=== PATIENT | male | born 1980 | race Caucasian/White ===

== ENCOUNTER 2017-02-03 01:50 | Observation (INO) ==
[2017-02-03] MEDS ORDERED: 0.9 % Sodium Chloride 500 ML IVC ONE (02:21)
[2017-02-03] MEDS ORDERED: Aspirin 81 MG TAB.CHEW PO ONE (02:21)
[2017-02-03] MEDS ORDERED: Ketorolac 30 MG/ML VIAL IVP ONE (02:21)
[2017-02-03] MEDS ORDERED: *HR* LORazepam 2 MG/ML VIAL IVP ONE (02:22)
[2017-02-03] MEDS ORDERED: Lidocaine 4% CREAM (LMX) 5 GM TP ONE (02:49)
--- NOTE | 2017-02-03 02:49 | Emergency Department Note ---
Disposition Clinical Impression: Ejection fraction < 50%, Alopecia CHF (congestive heart failure) Qualifiers: Congestive heart failure type: systolic Congestive heart failure chronicity: acute on chronic Qualified Code(s): I50.23 - Acute on chronic systolic ( congestive) heart failure Dyspnea Qualifiers: Dyspnea type: unspecified Qualified Code(s): R06.00 - Dyspnea, unspecified Disposition: Admitted As Inpatient Condition: Good Time of Disposition: 05:06 General Adult HPI - General Chief complaint: ED General Medical Stated complaint: Multiple Complaints Time Seen by Provider: 02/03/17 01:56 Source: patient, EMS Limitations: no limitations Nursing Notes Reviewed: Yes Vital Signs Reviewed: Yes - History of Present Illness HPI Narrative: Patient presents emergency room with multiple complaints today. Main issue this time is left-sided chest pain and burning sensation in his head. Is also had intermittent fevers at home without a quantitated number. Patient denies any shortness of breath headache vision changes nausea vomiting or diarrhea. Main complaint is the burning sensation on his scalp that has been poorly controlled as well as intermittent chest discomfort after being argument with his son. Denies any trauma or injuries. No medication changes no other acute pathology or symptoms noted during this evaluation treatment course.. Onset (ago): day(s) Location: head, chest, left Radiation: non-radiation Pain Severity: severe Pain Scale: 10 Quality: burning Consistency: constant Improves with: nothing Worsens with: other (stress) Associated symptoms: Reports: denies other symptoms Treatments Prior to Arrival: none - Related Data Home Medications Medication Instructions Recorded Confirmed Gabapentin [Neurontin] 300 mg PO TID 07/17/16 12/25/16 Albuterol Sulfate [Ventolin Hfa] 2 puff IH Q4H PRN 08/09/16 12/25/16 Carvedilol 6.25 mg PO BID 08/09/16 12/25/16 Apixaban [Eliquis] 5 mg PO BID 12/21/16 12/25/16 Lisinopril 2.5 mg PO DAILY 12/25/16 12/25/16 Previous Rx's Medication Instructions Recorded Furosemide [Lasix] 80 mg PO DAILY #0 08/13/16 Potassium Chloride [K-Tab ER] 10 meq PO DAILY #20 tablet.er 08/13/16 Furosemide [Lasix] 40 mg PO DAILY #5 tab 01/09/17 HYDROcodone/Acet 5/325 mg [[place] 1 tab PO Q6H PRN #10 tab 01/09/17 5-325 mg] Lidocaine TOPICAL Soln [Xylocaine] 5 ml TP BID #2 bottle 01/09/17 Oxycodone HCl/Acetaminophen 1 each PO Q6HR PRN #6 tablet 01/14/17 [Percocet 5-325 mg Tablet] Allergies Allergy/AdvReac Type Severity Reaction Status Date / Time Penicillins Allergy Anaphylaxis Verified 02/03/17 01:53 All systems ED: reviewed and negative except as stated. Constitutional: Reports: fever. Denies: chills, weakness Cardiovascular: Reports: chest pain. Denies: palpitations, dyspnea on exertion , orthopnea Respiratory: Denies: dyspnea, wheezes, hemoptysis Gastrointestinal: Denies: nausea, vomiting, diarrhea Genitourinary: Denies: dysuria, frequency Musculoskeletal: Denies: back pain, neck pain Neurological: Denies: headache Past Medical History - Past Medical History Attestation: Yes The following information was validated with the patient. Source: patient Medical history: Reports: CHF, GERD, hypertension, pulmonary embolus, other Surgical history: Reports: non-contributory Psychiatric history: Reports: anxiety, depression - Social History Smoking Status: Current every day smoker Smokeless Tobacco Status: No Alcohol use: Reports: none Drug use: Reports: marijuana Physical Exam - General Limitations: no limitations General appearance: alert - Head Head exam: normocephalic (Patient has large excoriated area on the right posterior lateral last the scalp. Specifically demarcated lines are noted with skin lesion that appears to be irritated on presentation) - Neck Neck exam: Present: normal inspection, full ROM, trachea midline - Chest Chest inspection: Present: normal inspection, symmetric chest wall rise. Absent : tenderness - Respiratory Respiratory exam: Present: normal lung sounds bilaterally. Absent: respiratory distress, wheezes, accessory muscle use - Cardiovascular Cardiovascular exam: Present: regular rate, normal rhythm, normal heart sounds - Abdominal Exam Abdominal exam: Present: soft, Non-Tender, normal bowel sounds. Absent: tenderness, distention, guarding, rebound, rigidity, Wilson's sign, Rovsing's sign, tenderness at McBurney's Point - Extremities Exam Extremities exam: Present: normal inspection, full ROM, normal capillary refill - Back Exam Back exam: Present: normal inspection - Neurological Exam Neurological exam: Present: alert, oriented X3, CN II-XII intact, normal gait - Psychiatric Psychiatric exam: Present: normal affect, normal mood - Skin Skin exam: Present: warm, dry, intact, normal color Course Course Narrative: Patient seen and examined the time of arrival. See history of present illness. 36-year-old male presents emergency room today with 48 hours worth of left- sided chest pain that comes and goes. He also describes a burning and painful sensation on the right side of his scalp. He has an excoriated demarcated area on the scalp that appears to be chronic in nature. The patient continues to scratch and pick at the scalp while I am even in the room evaluating him. His vital signs are stable on review he is afebrile. Physical exam is otherwise benign. Patient does have mildly pressured speech and trying to describe all of his acute symptoms that he has here today. Lungs are clear heart is regular lungs are clear his reproducible tenderness to left anterior chest wall. Abdomen is soft nontender nondistended no guarding no rigidity. Patient moves all 4 extremities without any difficulty. He has good capillary refill and normal sensation. Patient has no signs of pitting edema in the extremities at this time. Vital signs reviewed again and then patient's medical history were discussed. Patient does have a history of what he describes as CHF without any cardiac related history including myocardial infarction or catheterization. Patient was also complaining of fever over the last several days to the point where it made him sweat profusely. Patient has multiple vague and what appear to be chronic complaints on presentation. This is a complaint of chest discomfort and pain patient will have an evaluation with EKG troponin labs chest x-ray and fluid evaluation along with aspirin. - Reevaluation(s) Reevaluation #1: Labs reviewed along with x-rays. Patient's BNP is almost double what it is ever been in the past. At that point I reviewed the patient's history including recent echocardiogram and catheterization. EF was noted to be 20% at that time. Patient is having what looks like conversational dyspnea even though his pulse ox is been stable. He does have a frothy white-like fluid discharge on coughing at this time. Clinically there is no signs of peripheral edema on examination but based on the symptoms history and presentation he does have what appears to be clinical CHF exacerbation. Single dose of IV Lasix given here in attempts to help with pulmonary congestion. Patient was reviewed and discussed with the hospitalist this time for admission for evaluation and definitive management. There are no other concerns or questions at this time. Patient's labs otherwise stable. Patient has been comfortable in the bed at this time with lidocaine cream applied to the scalp to help with his itching and irritation. No other acute issues noted during this evaluation treatment course. Patient will be observed here in the emergency room until the admission process is completed. A review of the patient's presentation symptoms was completed with the hospitalist Dr. ramey and he had no other acute concerns at this time. Patient family and I reviewed the intervention and discussion the comfortable with the course of care and appreciate her concern in his medical history and issues. Time: 05:05 Vital Signs Temperature 98.2 F 02/03/17 01:55 Pulse Rate 102 02/03/17 01:55 Respiratory Rate 20 02/03/17 01:55 Blood Pressure 124/78 02/03/17 01:55 O2 Sat by Pulse Oximetry 100 02/03/17 01:55 Temperature 98.2 F 02/03/17 01:55 Pulse Rate 92 02/03/17 04:31 Respiratory Rate 16 02/03/17 04:31 Blood Pressure 99/70 02/03/17 04:31 O2 Sat by Pulse Oximetry 100 02/03/17 04:31 Oxygen Delivery Oxygen Delivery Room Air Medical Decision Making - MDM Narrative Medical decision making narrative: CHF exacerbation, left heart failure - Medical Records Medical records reviewed: Yes I reviewed the patient's medical records. - Lab Data Lab results reviewed: Yes I reviewed the patient's lab results. Result diagrams: 02/03/17 02:43 02/03/17 02:43 Lab Results 02/03/17 02/03/17 02/03/17 Range/Units 02:43 02:43 02:43 WBC 14.3 H (4.3-11.1) K/mcL RBC 3.45 L (4.19-5.50) M/mcL Hgb 10.1 L (12.9-16.9) g/dL Hct 31.8 L (37.5-50.1) % MCV 92.2 (83.0-100.0) fL MCH 29.3 (28.0-33.3) pg MCHC 31.8 (31.6-35.5) g/dL RDW 14.3 (11.5-14.5) % Plt Count 302 (140-400) K/mcL MPV 9.7 (9.4-12.4) fL Immature Gran % 0.6 (0-4) % Seg Neutrophils % 69.6 % Lymphocytes % 18.1 % Monocytes % 9.6 % Eosinophils % 1.7 % Basophils % 0.4 % Neutrophils # 10.0 H (1.6-8.9) K/mcL Lymphocytes # 2.6 (0.6-4.6) K/mcL Monocytes # 1.4 H (0.0-1.3) K/mcL Eosinophils # 0.2 (0.0-0.6) K/mcL Basophils # 0.1 (0.0-0.2) K/mcL Immature Plt Fraction 2.5 (1.1-6.1) % PT 29.4 H (9.4-12.1) Seconds INR 2.6 APTT 38.1 H (26.0-36.0) Seconds Sodium (136-145) mEq/L Potassium (3.5-4.5) mEq/L Chloride (98-109) mEq/L Carbon Dioxide (19-29) mEq/L BUN (8-26) mg/dL Creatinine (0.72-1.25) mg/dL Est GFR ( Amer) (> 60) Est GFR (Non-Af Amer) (> 60) BUN/Creatinine Ratio (6-26) Glucose (70-99) mg/dL Calculated Osmolality (280-300) Calcium (8.6-10.8) mg/dL Troponin I (0-0.03) ng/mL B-Natriuretic Peptide 1624 H (0-100) pg/mL Urine Color (Yellow) Urine Clarity (Clear) Urine pH (5.0-8.0) pH Units Ur Specific [place] (1.010-1.025) Urine Protein (Neg-Trace) mg/dL Urine Glucose (UA) (Normal) mg/dL Urine Ketones (Negative) mg/dL Urine Blood (Negative) Urine Nitrite (Negative) Urine Bilirubin (Negative) Urine Urobilinogen (Normal) mg/dL Ur Leukocyte Esterase (Negative) Urine Microscopic RBC (0-3) per hpf Urine Microscopic WBC (0-3) per hpf Ur Squamous Epith Cells (None-Few) per lpf Calcium Oxalate Crystal Other Crystals Urine Bacteria (None-Few) per hpf Hyaline Casts (None-Few) per lpf Urine Mucus (Few) Ur Culture Indicated? (NO) Urine Opiates Screen (Njmrnx=754) ng/mL Ur Barbiturates Screen (Igutgn=673) ng/mL Ur Phencyclidine Scrn (Cutoff=25) ng/mL Ur Amphetamines Screen (Mstfld=6115) ng/mL U Benzodiazepines Scrn (Xeqdga=945) ng/mL Urine Cocaine Screen (Cutoff= 300) ng/mL U Marijuana (THC) Screen (Cutoff = 50) ng/mL 02/03/17 02/03/17 02/03/17 Range/Units 02:43 02:43 03:45 WBC (4.3-11.1) K/mcL RBC (4.19-5.50) M/mcL Hgb (12.9-16.9) g/dL Hct (37.5-50.1) % MCV (83.0-100.0) fL MCH (28.0-33.3) pg MCHC (31.6-35.5) g/dL RDW (11.5-14.5) % Plt Count (140-400) K/mcL MPV (9.4-12.4) fL Immature Gran % (0-4) % Seg Neutrophils % % Lymphocytes % % Monocytes % % Eosinophils % % Basophils % % Neutrophils # (1.6-8.9) K/mcL Lymphocytes # (0.6-4.6) K/mcL Monocytes # (0.0-1.3) K/mcL Eosinophils # (0.0-0.6) K/mcL Basophils # (0.0-0.2) K/mcL Immature Plt Fraction (1.1-6.1) % PT (9.4-12.1) Seconds INR APTT (26.0-36.0) Seconds Sodium 133 L (136-145) mEq/L Potassium 3.7 (3.5-4.5) mEq/L Chloride 102 (98-109) mEq/L Carbon Dioxide 21 (19-29) mEq/L BUN 16 (8-26) mg/dL Creatinine 0.77 (0.72-1.25) mg/dL Est GFR ( Amer) > 60 (> 60) Est GFR (Non-Af Amer) > 60 (> 60) BUN/Creatinine Ratio 21 (6-26) Glucose 106 H (70-99) mg/dL Calculated Osmolality 278 L (280-300) Calcium 8.1 L (8.6-10.8) mg/dL Troponin I 0.01 (0-0.03) ng/mL B-Natriuretic Peptide (0-100) pg/mL Urine Color Yellow (Yellow) Urine Clarity Cloudy A (Clear) Urine pH 6.0 (5.0-8.0) pH Units Ur Specific [place] 1.018 (1.010-1.025) Urine Protein Negative (Neg-Trace) mg/dL Urine Glucose (UA) Normal (Normal) mg/dL Urine Ketones Negative (Negative) mg/dL Urine Blood Trace H (Negative) Urine Nitrite Negative (Negative) Urine Bilirubin Negative (Negative) Urine Urobilinogen Normal (Normal) mg/dL Ur Leukocyte Esterase Trace H (Negative) Urine Microscopic RBC 3-5 H (0-3) per hpf Urine Microscopic WBC 0-3 (0-3) per hpf Ur Squamous Epith Cells Moderate H (None-Few) per lpf Calcium Oxalate Crystal Present Other Crystals Present Urine Bacteria Few (None-Few) per hpf Hyaline Casts Few (None-Few) per lpf Urine Mucus Few (Few) Ur Culture Indicated? YES A (NO) Urine Opiates Screen (Eoevxq=883) ng/mL Ur Barbiturates Screen (Qsrvsn=175) ng/mL Ur Phencyclidine Scrn (Cutoff=25) ng/mL Ur Amphetamines Screen (Bzlxtf=3977) ng/mL U Benzodiazepines Scrn (Bxepwt=823) ng/mL Urine Cocaine Screen (Cutoff= 300) ng/mL U Marijuana (THC) Screen (Cutoff = 50) ng/mL 02/03/17 Range/Units 03:45 WBC (4.3-11.1) K/mcL RBC (4.19-5.50) M/mcL Hgb (12.9-16.9) g/dL Hct (37.5-50.1) % MCV (83.0-100.0) fL MCH (28.0-33.3) pg MCHC (31.6-35.5) g/dL RDW (11.5-14.5) % Plt Count (140-400) K/mcL MPV (9.4-12.4) fL Immature Gran % (0-4) % Seg Neutrophils % % Lymphocytes % % Monocytes % % Eosinophils % % Basophils % % Neutrophils # (1.6-8.9) K/mcL Lymphocytes # (0.6-4.6) K/mcL Monocytes # (0.0-1.3) K/mcL Eosinophils # (0.0-0.6) K/mcL Basophils # (0.0-0.2) K/mcL Immature Plt Fraction (1.1-6.1) % PT (9.4-12.1) Seconds INR APTT (26.0-36.0) Seconds Sodium (136-145) mEq/L Potassium (3.5-4.5) mEq/L Chloride (98-109) mEq/L Carbon Dioxide (19-29) mEq/L BUN (8-26) mg/dL Creatinine (0.72-1.25) mg/dL Est GFR ( Amer) (> 60) Est GFR (Non-Af Amer) (> 60) BUN/Creatinine Ratio (6-26) Glucose (70-99) mg/dL Calculated Osmolality (280-300) Calcium (8.6-10.8) mg/dL Troponin I (0-0.03) ng/mL B-Natriuretic Peptide (0-100) pg/mL Urine Color (Yellow) Urine Clarity (Clear) Urine pH (5.0-8.0) pH Units Ur Specific [place] (1.010-1.025) Urine Protein (Neg-Trace) mg/dL Urine Glucose (UA) (Normal) mg/dL Urine Ketones (Negative) mg/dL Urine Blood (Negative) Urine Nitrite (Negative) Urine Bilirubin (Negative) Urine Urobilinogen (Normal) mg/dL Ur Leukocyte Esterase (Negative) Urine Microscopic RBC (0-3) per hpf Urine Microscopic WBC (0-3) per hpf Ur Squamous Epith Cells (None-Few) per lpf Calcium Oxalate Crystal Other Crystals Urine Bacteria (None-Few) per hpf Hyaline Casts (None-Few) per lpf Urine Mucus (Few) Ur Culture Indicated? (NO) Urine Opiates Screen Negative (Hpvqmm=760) ng/mL Ur Barbiturates Screen Negative (Zvykde=541) ng/mL Ur Phencyclidine Scrn Negative (Cutoff=25) ng/mL Ur Amphetamines Screen Negative (Xgjypz=5586) ng/mL U Benzodiazepines Scrn Negative (Xisuap=587) ng/mL Urine Cocaine Screen Negative (Cutoff= 300) ng/mL U Marijuana (THC) Screen Positive H (Cutoff = 50) ng/mL - Radiology Data Radiology results reviewed: Yes I reviewed the patient's radiology results. Chest x-ray is stable no acute signs of infiltrate or pneumonia - EKG Data EKG #1 EKG attestation: Yes I reviewed and interpreted this EKG. EKG shows normal: sinus rhythm, axis, intervals, QRS complexes, ST-T waves Rate: tachycardia Rhythm: NSR [place]/QRS: normal When compared to previous EKG there are: no significant changes Interpretation: no acute changes, unchanged when compared to prior tracing (date ) (01/13/17) Attestation Statement - Attestation Attestation: I, Mumtaz Haile MD, personally evaluated this patient and discussed their management with the resident physician. I reviewed the resident's note and agree with the documented findings, medical decision making, and plan of care. 36-year-old male presents to the emergency department with a complaint of intermittent left-sided chest pains over the past 4 days which seem to be getting gradually worse. He also complains of increasing shortness of breath. Patient has a history of CHF and his last ejection fraction was 20%. He recently had a cardiac catheter and states that they did not find any blockage or place any stents. He denies history of PR. He states these symptoms started after "situation" with his son. He states he has had increased cough with frothy white sputum. No blood-tinged sputum. No fever. He states this feels like when his CHF flares up. On examination patient is a well-developed well-nourished anxious male in no acute distress. He is alert and oriented 3. There is no cyanosis or diaphoresis. There is a large area of alopecia with excoriation and weeping of the scalp to the right posterior parietal, temporal, and occipital scalp. Chest is nontender to palpation. Breath sounds are decreased but equal bilaterally with a few bibasilar rales. No wheezes noted. Heart regular rate and rhythm. Abdomen is soft and nontender with normal bowel sounds. Trace pedal edema. Labs reviewed. BNP 1624. No acute changes on EKG. Chest x-ray shows stable mild cardiomegaly with no overt pulmonary edema. The hospitalist, Dr. Ramey, was consulted and accepted admission of the patient.
[2017-02-03 02:54] LABS: Basophils # 0.1 K/mcL (0.0-0.2); Basophils % 0.4 %; Eosinophils # 0.2 K/mcL (0.0-0.6); Eosinophils % 1.7 %; Hematocrit 31.8 % (37.5-50.1); Hemoglobin 10.1 g/dL (12.9-16.9); Immature Granulocytes % 0.6 % (0-4); Immature Platelets 2.5 % (1.1-6.1); Lymphocytes # 2.6 K/mcL (0.6-4.6); Lymphocytes % 18.1 %; Mean Corpuscular HGB Conc 31.8 g/dL (31.6-35.5); Mean Corpuscular Hemoglobin 29.3 pg (28.0-33.3); Mean Corpuscular Volume 92.2 fL (83.0-100.0); Mean Platelet Volume 9.7 fL (9.4-12.4); Monocytes # 1.4 K/mcL (0.0-1.3); Monocytes % 9.6 %; Platelet Count 302 K/mcL (140-400); Red Blood Count 3.45 M/mcL (4.19-5.50); Red Cell Distribution Width 14.3 % (11.5-14.5); Segmented Neutrophils % 69.6 %
[2017-02-03 03:03] LABS: INR 2.6; Prothrombin Time 29.4 Seconds (9.4-12.1)
[2017-02-03 03:06] LABS: Activated Partial Thrombo Time 38.1 Seconds (26.0-36.0); BUN/Creatinine Ratio 21 (6-26); Blood Urea Nitrogen 16 mg/dL (8-26); Calcium 8.1 mg/dL (8.6-10.8); Carbon Dioxide 21 mEq/L (19-29); Chloride 102 mEq/L (98-109); Glucose 106 mg/dL (70-99); Osmolality,Calculated 278 (280-300); Potassium 3.7 mEq/L (3.5-4.5); Sodium 133 mEq/L (136-145); eGFR For African Americans > 60 (> 60); eGFR For Non-African Americans > 60 (> 60)
[2017-02-03 03:58] LABS: Bilirubin,Urine Negative (Negative); Blood,Urine Trace (Negative); Clarity,Urine Cloudy (Clear); Color,Urine Yellow (Yellow); Glucose,Urine (UA) Normal (Normal); Ketones,Urine Negative (Negative); Leukocyte Esterase,Urine Trace (Negative); Nitrite,Urine Negative (Negative); Protein,Urine Negative (Neg-Trace); Specific Gravity,Urine 1.018 (1.010-1.025); Urobilinogen,Urine Normal (Normal)
[2017-02-03 04:00] LABS: Squamous Epithelial Cell,Urine Moderate per lpf (None-Few); WBC,Urine 0-3 per hpf (0-3)
[2017-02-03 04:02] LABS: Amphetamine Screen,Urine Negative ng/mL (Cutoff=1000); Barbiturate Screen,Urine Negative ng/mL (Cutoff=200); Benzodiazepines Screen,Urine Negative ng/mL (Cutoff=200); Cannabinoid Screen,Urine Positive ng/mL (Cutoff = 50); Cocaine Screen,Urine Negative ng/mL (Cutoff= 300); Opiate Screen,Urine Negative ng/mL (Cutoff=300); Phencyclidine Screen,Urine Negative ng/mL (Cutoff=25)
[2017-02-03 04:11] LABS: Bacteria,Urine Few per hpf (None-Few); Calcium Oxalate Crystals,Urine Present; Hyaline Casts,Urine Few per lpf (None-Few); Mucus,Urine Few (Few); Other Crystals,Urine Present
[2017-02-03] MEDS ORDERED: Furosemide 40 MG/4 ML VIAL IVP ONE (04:43)
[2017-02-03] MEDS ORDERED: *HR* HYDROcodone/Acet 5/325 mg TABLET PO PRN (05:24)
[2017-02-03] MEDS ORDERED: Ipratropium/Albuterol Neb 3 ML IH PRN (05:25)
[2017-02-03] MEDS ORDERED: Naloxone 0.4 MG/ML INJ IVP PRN (05:26)
[2017-02-03] MEDS ORDERED: Acetaminophen 325 MG TABLET PO PRN (05:26)
[2017-02-03] MEDS ORDERED: *HR* Morphine 2 MG/ML SYRINGE IVP PRN (05:26)
[2017-02-03] MEDS ORDERED: Ondansetron 4 MG/2 ML VIAL IVP PRN (05:26)
--- NOTE | 2017-02-03 05:32 | Internal Med History&Physical ---
Date of Encounter: 02/03/17 Time of Encounter: 05:30 Assessment and Plan (1) Acute combined systolic and diastolic congestive heart failure Current visit: No Status: Acute Acute on chronic combined systolic and diastolic CHF exacerbation with an ejection fraction of 20% Strict I's and O's, daily weights, Lasix IV 40 mg twice a day Omeprazole for GI prophylaxis and Eliquis for DVT prophylaxis. The patient will be admitted as inpatient, expected stay more than 2 midnights. Full code. Time spent on this admission 40 minutes. High risk of respiratory failure (2) Sepsis Current visit: Yes Status: Acute Secondary to acute bacterial bronchitis Start Rocephin Lactic acid, blood cultures Qualifiers: Sepsis type: sepsis due to unspecified organism Qualified Code(s): A41.9 - Sepsis, unspecified organism (3) Bronchitis Current visit: Yes Status: Acute (4) Pulmonary embolism and infarction Current visit: No Status: Acute Continue Eliquis (5) Tobacco abuse Current visit: No Status: Chronic Smoking cessation counseling given for 5 minutes. Order nicotine patch (6) Alopecia Current visit: Yes Status: Chronic Seen as an outpatient by case work aide, unclear source/etiology Internal Medicine - H&P: HPI Chief complaint: Shortness of breath Admitted From: Emergency Dept History of present illness: Mr. Welch is a 36 year old male with a past medical history of systolic and diastolic CHF and ejection fraction of 20%, pulmonary infarction, pulmonary emboli, left ventricular thrombus currently on Eliquis, tobacco use, alopecia. Comes complaining of shortness of breath, left sided chest pain non-quantified fevers for 3 days bringing up productive cough, yellowish at times. Chest x- ray shows cardiomegaly and minimal congestion but his BNP is elevated at 1624. He has been bringing up also some frothy sputum. Heart rate was 102, blood pressure 99/74 blood cell count 14.3 INR is 2.6 sodium 133. Denies any sick contacts. Chest pain comes on and off. Has some leg swelling bilaterally Past Med Surg Social Fam HX - Past Medical History Medical history: CHF (Systolic and diastolic with an ejection fraction of 20%), GERD, hypertension, pulmonary embolus, other (Left ventricular thrombus, pulmonary infarction on Eliquis, tobacco use, chronic cholecystitis, neuropathy , anxiety, depression, shingles, alopecia, GERD, scalp wound) Psychiatric history: anxiety, depression - Past Surgical History Surgical History: no surgical history, non-contributory - Social History Smoking Status: Current every day smoker Packs per day: 1 pack per day Smokeless Tobacco Status: No Alcohol use: none Drug use: marijuana - Family History Mother Family Member Ethnicity: Non- Living Status: Still Living Hx Family Cardiac Disorders: No Hx Family Respiratory Disorders: No Hx Family Cancer: Yes Hx Family GI Disorders: No Hx Family Endocrine Disorder: No Hx Family Neuromuscular Disorders: No Hx Family Neurologic Disorders: No Hx Family HEENT Disorders: No - Additional Family History Additional family history: Mother with breast and uterine cancer Internal Medicine - H&P: Meds Gabapentin [Neurontin] 300 mg PO TID 07/17/16 [History] Albuterol Sulfate [Ventolin Hfa] 2 puff IH Q4H PRN 08/09/16 [History] Carvedilol 6.25 mg PO BID 08/09/16 [History] Furosemide [Lasix] 80 mg PO DAILY #0 08/13/16 [Rx] Potassium Chloride [K-Tab ER] 10 meq PO DAILY #20 tablet.er 08/13/16 [Rx] Apixaban [Eliquis] 5 mg PO BID 12/21/16 [History] Lisinopril 2.5 mg PO DAILY 12/25/16 [History] Furosemide [Lasix] 40 mg PO DAILY #5 tab 01/09/17 [Rx] HYDROcodone/Acet 5/325 mg [[place] 5-325 mg] 1 tab PO Q6H PRN #10 tab 01/09/17 [Rx ] Lidocaine TOPICAL Soln [Xylocaine] 5 ml TP BID #2 bottle 01/09/17 [Rx] Oxycodone HCl/Acetaminophen [Percocet 5-325 mg Tablet] 1 each PO Q6HR PRN #6 tablet 01/14/17 [Rx] Allergies Penicillins Allergy (Verified 02/03/17 01:53) Anaphylaxis All Systems PM: A 10-system review of systems was performed and is negative for pertinent findings except as documented above in the HPI. Review of systems: Complains of constant itchiness on his scalp on the right side, diagnosed with alopecia of unknown source, picks on it constantly and is currently bleeding in certain small areas. Other systems out of the 10 reviewed are negative - Constitutional Vitals: Temp Pulse Resp BP Pulse Ox 98.2 F 92 16 99/70 100 02/03/17 01:55 02/03/17 04:31 02/03/17 04:31 02/03/17 04:31 02/03/17 04:31 General appearance: Present: A&O X 3 - Head Head exam: Present: atraumatic, normocephalic - Eye Eye exam: Present: PERRL, conjuntiva pink, sclera anicteric Pupils: Present: PERRL - Neck Neck exam general surgery: Present: supple, trachea midline. Absent: lymphadenopathy - Respiratory Respiratory exam: Present: CTAB, rales (Diffuse crackles). Absent: accessory muscle use, rhonchi, wheezes - Cardiovascular Cardiovascular exam: Present: RRR, +S1, +S2. Absent: diastolic murmur, gallop, rubs, systolic murmur - GI/Abdominal GI/Abdominal exam: Present: normal bowel sounds, soft, no peritoneal signs. Absent: distended, tenderness - Extremities Exam Extremities exam: Present: pedal edema (+1 pitting edema in both lower extremities), warm, radial pulses palpable and symetrical. Absent: calf tenderness, cyanotic - Neurological Exam Neurological exam: Present: CN II-XII intact, oriented X3, no focal deficits. Absent: pronater drift, facial droop, speech deficit - Skin Skin exam: Present: dry. Absent: intact (Large area of alopecia on the right temporal scalp, with multiple small excoriations) Internal Med - H&P Results - Labs CBC & Chem 7: 02/03/17 02:43 02/03/17 02:43
[2017-02-03] MEDS ORDERED: *HR* OxyCODONE/APAP 5/325 TABLET PO PRN (08:20)
[2017-02-03] MEDS: APIXABAN 5 MG TABLET PO SCH ×2 (08:22→22:33)
[2017-02-03] MEDS: Nicotine 21 MG PATCH.TD24 TD SCH (08:24)
[2017-02-03] MEDS: Gabapentin 300 MG CAPSULE PO SCH ×3 (08:24→22:33)
[2017-02-03] MEDS ORDERED: Lidocaine TOPICAL Soln 50 ML BOTTLE TP SCH (09:00)
[2017-02-03] MEDS ORDERED: Furosemide 40 MG/4 ML VIAL IVP SCH (09:00)
[2017-02-03] MEDS: Furosemide 40 MG/4 ML VIAL IVP SCH ×2 (09:32→18:16)
--- NOTE | 2017-02-03 09:35 | Event Note ---
Date of Encounter: 02/03/17 Time of Encounter: 08:20 Patient complaining of scalp pain in the right posterior scalp where he has an open wound that is chronic and with severe pain and itching. He is scheduled to follow up with [facility] for further evaluation as no clear cause has been identified. He requests a topical antifungal cream to see if it would ameliorate his symptoms. He does use lidocaine topically for pain also. Will order topical clotrimazole for him. Acute combined congestive heart failure: Continue IV Lasix. Monitor input and output. Daily weights. Sepsis possibly from upper airway respiratory tract infection/bronchitis: Continue Rocephin. Follow culture results. Pulmonary embolism and left ventricular mural thrombus: Continue anticoagulation with Eliquis. Alopecia: With pain and pruritus. Topical steroid and clotrimazole cream. Follow up outpatient with [facility] as scheduled.
[2017-02-03] MEDS: Clotrimazole/Betameth Dip CRM 45 APPL/45 GM TUBE TP SCH ×2 (09:40→22:34)
[2017-02-03] MEDS: *HR* OxyCODONE/APAP 5/325 TABLET PO PRN ×2 (09:40→14:59)
--- NOTE | 2017-02-03 10:18 | Electrocardiograph Report ---
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
[2017-02-03] MEDS: *HR* OxyCODONE/APAP 10/325 TABLET PO PRN (13:01)
[2017-02-03] MEDS: Lidocaine TOPICAL Soln 50 ML BOTTLE TP SCH ×2 (14:58→22:34)
[2017-02-04] MEDS: *HR* OxyCODONE/APAP 5/325 TABLET PO PRN ×5 (00:34→22:34)
[2017-02-04 07:18] LABS: Basophils # 0.1 K/mcL (0.0-0.2); Basophils % 0.5 %; Eosinophils # 0.3 K/mcL (0.0-0.6); Eosinophils % 2.2 %; Hematocrit 33.1 % (37.5-50.1); Hemoglobin 10.7 g/dL (12.9-16.9); Lymphocytes # 1.9 K/mcL (0.6-4.6); Lymphocytes % 16.3 %; Mean Corpuscular HGB Conc 32.3 g/dL (31.6-35.5); Mean Corpuscular Hemoglobin 29.8 pg (28.0-33.3); Mean Corpuscular Volume 92.2 fL (83.0-100.0); Mean Platelet Volume 10.5 fL (9.4-12.4); Monocytes % 8.4 %; Neutrophils # 8.5 K/mcL (1.6-8.9); Platelet Count 332 K/mcL (140-400); Red Blood Count 3.59 M/mcL (4.19-5.50); Red Cell Distribution Width 14.4 % (11.5-14.5); Segmented Neutrophils % 71.6 %
[2017-02-04 07:26] LABS: BUN/Creatinine Ratio 24 (6-26); Blood Urea Nitrogen 16 mg/dL (8-26); Carbon Dioxide 24 mEq/L (19-29); Chloride 102 mEq/L (98-109); Chol/HDL Ratio 7.5 (0-4.9); Cholesterol 120 mg/dL (< 200); Glucose 107 mg/dL (70-99); HDL Cholesterol 16 mg/dL (40-59); LDL Cholesterol,Calculated 88 mg/dL (0-99); Osmolality,Calculated 280 (280-300); Potassium 3.8 mEq/L (3.5-4.5); Sodium 134 mEq/L (136-145); Triglycerides 80 mg/dL (< 150); eGFR For African Americans > 60 (> 60); eGFR For Non-African Americans > 60 (> 60)
[2017-02-04] MEDS: Furosemide 40 MG/4 ML VIAL IVP SCH ×2 (08:55→17:29)
[2017-02-04] MEDS: APIXABAN 5 MG TABLET PO SCH ×2 (08:55→20:47)
[2017-02-04] MEDS: Gabapentin 300 MG CAPSULE PO SCH ×3 (08:55→20:48)
[2017-02-04] MEDS: Clotrimazole/Betameth Dip CRM 45 APPL/45 GM TUBE TP SCH ×2 (08:58→20:48)
[2017-02-04] MEDS: Lidocaine TOPICAL Soln 50 ML BOTTLE TP SCH ×3 (08:58→20:49)
[2017-02-04] MEDS: Nicotine 21 MG PATCH.TD24 TD SCH (08:58)
[2017-02-04] MEDS: *HR* OxyCODONE/APAP 10/325 TABLET PO PRN (12:22)
--- NOTE | 2017-02-04 15:23 | Cardiology Consult Note ---
Date of Encounter: 02/04/17 Time of Encounter: 14:30 Assessment and Plan (1) Acute on chronic systolic CHF (congestive heart failure), NYHA class 2 Current Visit: Yes Status: Acute Per cardiology: -Known chronic systolic congestive heart failure. -Admitted with increased shortness of breath and productive cough with frothy sputum. -On lasix 40mg IV BID per primary service. -On beta rosalina and marysol inhibitor. -Creatinine normal. -Patient's weight 01/22/17 203 pounds, weight today 208.8 pounds. -Of note, patient's weight has decreased by about 2 pounds since admission. -Mild pedal edema noted. Lungs clear to auscultation. -Agree with strict I/Os, daily weights, and fluid restriction. -Per review of records, patient is net positive 400ml. -Patient states shortness of breath and edema is improved today. Patient reports productive cough has now resolved. -Recommend continuing current regimen since patient has clinically imrpoved. -Of note, patient states that he is leaving the hospital today. Patient states he will leave AMA if necessary. Educated patient on importance of staying and continuing IV diuresis. Patient states understanding. (2) Non-ischemic cardiomyopathy Current Visit: Yes Status: Chronic Per cardiology: -Known non-ischemic cardiomyopathy. -LHC 12/25/16 with normal coronary arteries. -Most recent echocardiogram 10/23/16 with LVEF 20%, severely dilated left ventricle, global LV hypokinesis, mild RV hypokinesis, moderately dilated left atrium, all wall segments hypokinetic. -Of note, per patient, patient has cardiac MRI scheduled 02/18/17. Patient follows with . -On maryslo inhibtior and beta rosalina. -Unable to further titrate current medication regimen due to BPs 90-100s systolic. -Recommend continuing current regimen. (3) Atypical chest pain Current Visit: Yes Status: Acute Per cardiology: -Atypical chest pain in the setting of stressful situation with son. -Chest pain resolved spontaneoulsy. -Denies current chest pain. -LHC as above 12/24/16 normal. -ECG with no ischemic changes, -Troponin negative. -Echo as above. -Will continue to monitor. (4) Tobacco abuse Current Visit: No Status: Chronic Per cardioogy: -Known tobacco abuse. -CUrrently smokes 0.5 ppd for 25 years. - I spent 3-5 minutes reviewing smoking cessation education with patient. Discussion w patient/family: The assessment and plan as outlined above was discussed with the patient and/or family members who expressed understanding and agreement. All questions were answered. Thank you for involving us in the care of your patient. Please call with any questions. Patient was discussed and reviewed with Dr.John Domniguez. History of Present Illness Consult date: 02/04/17 Requesting physician: Autumn Martinez Consult reason: acute on chronic CHF Chief complaint: shortness of breath History of present illness: Mr. Welch is a 36 year old male with a relevant past medical history of non- ischemic cardiomyopathy, anxiety, depression, shingles, and smoking. Patient presented to ER with complaints of increased shortness of breath, coughing up frothy sputum, and left sided chest pain that was accompanied by stressful situation with son. Patient states that this has happened prior when he was admitted with CHF exacerbation. Patient states he has been compliant with medication regimen at home. Patient reports compliance with fluid and sodium restriction. Patient denies productive cough today. Patient denies current chest pain. Patient reports shortness of breath is much improved today. Patient reports is scheduled for cardiac MRI 02/18/17. Of note, patient states that he is leaving the hospital today, even if he has to leave AMA. Past Med Surg Social Fam HX - Past Medical History Attestation: Yes The following information was validated with the patient. Source: patient, old records reviewed, obtained from family Medical history: CHF, hypertension, pulmonary embolus Psychiatric history: anxiety, depression - Past Surgical History Surgical History: no surgical history, non-contributory - Social History Smoking Status: Current every day smoker Packs per day: 1 pack per day Smokeless Tobacco Status: No Alcohol use: none Drug use: marijuana - Family History Mother Family Member Ethnicity: Non- Living Status: Still Living Hx Family Cardiac Disorders: No Hx Family Respiratory Disorders: No Hx Family Cancer: Yes Hx Family GI Disorders: No Hx Family Endocrine Disorder: No Hx Family Neuromuscular Disorders: No Hx Family Neurologic Disorders: No Hx Family HEENT Disorders: No Medications and Allergies Gabapentin [Neurontin] 300 mg PO TID 07/17/16 [History] Albuterol Sulfate [Ventolin Hfa] 2 puff IH Q4H PRN 08/09/16 [History] Carvedilol 6.25 mg PO BID 08/09/16 [History] Furosemide [Lasix] 80 mg PO DAILY #0 08/13/16 [Rx] Potassium Chloride [K-Tab ER] 10 meq PO DAILY #20 tablet.er 08/13/16 [Rx] Apixaban [Eliquis] 5 mg PO BID 12/21/16 [History] Lisinopril 2.5 mg PO DAILY 12/25/16 [History] Lidocaine TOPICAL Soln [Xylocaine] 5 ml TP BID #2 bottle 01/09/17 [Rx] Allergies Penicillins Allergy (Verified 02/03/17 08:16) Anaphylaxis SWELLING All Systems Review: A 10-system review of systems was performed and is negative for pertinent findings except as documented above in the HPI. - Cardiovascular Cardiovascular: as per HPI, chest pain at rest, dyspnea on exertion Physical Examination Vital Signs, Last 4 Hours Temp Pulse Resp BP Pulse Ox 02/04/17 12:33 104/80 02/04/17 12:32 106/71 02/04/17 11:52 97.9 F 98 18 90/56 97 General: Conversant, No Apparent Distress HEENT: Atraumatic, Normocephaly, Mucus Membranes Moist Neck: No JVD, Normal carotid pulses Cardiac: Reg Rate and Rhythm, Normal S1 and S2, No Murmur Lungs: Normal Breath Sounds, No Wheeze, Rales, Rhonchi Neuro: Alert and responsive, No focal deficits noted Abdomen: Soft, Non-Tender Skin: Other (RIght side of scalp excoriated and red and no hair noted to right side of scalp. ) Musculoskeletal: No Chest Wall Tenderness Extremities: No Clubbing, No Cyanosis, Normal Pulses, Other (Mild bilateral pedal edema, non-pitting. ) Results 02/04/17 07:00 02/04/17 07:00 Lab Results Active Medications Acetaminophen (Tylenol) 650 mg PO Q6HR PRN PRN Reason: Mild Pain (1-3) Stop: 08/05/17 05:27 Albuterol/Ipratropium (Duoneb) 3 ml IH [id number] PRN; Protocol PRN Reason: Shortness Of Breath/Wheezing Stop: 08/05/17 05:26 Apixaban (Eliquis) 5 mg PO BID [facility] Stop: 08/05/17 09:01 Last Admin: 02/04/17 08:55 Dose: 5 mg Betamethasone/Clotrimazole (Lotrisone Crm) 1 appl TP BID [facility] Stop: 08/05/17 09:01 Last Admin: 02/04/17 08:58 Dose: 1 appl Carvedilol (Coreg) 6.25 mg PO BIDWM [facility] Stop: 08/05/17 08:44 Last Admin: 02/04/17 08:55 Dose: 6.25 mg Furosemide (Lasix) 40 mg IVP BIDDIURETIC [facility] Stop: 08/05/17 08:44 Last Admin: 02/04/17 08:55 Dose: 40 mg Gabapentin (Neurontin) 300 mg PO TID [facility] Stop: 08/05/17 09:01 Last Admin: 02/04/17 08:55 Dose: 300 mg Ceftriaxone Sodium 1,000 mg/ (Dextrose) 100 mls @ 200 mls/hr IVPB DAILY [facility] Stop: 08/05/17 09:01 Last Admin: 02/04/17 08:57 Dose: 200 mls/hr Lidocaine HCl (Xylocaine) 10 ml TP TID [facility] Stop: 08/05/17 15:01 Last Admin: 02/04/17 08:58 Dose: 10 ml Lisinopril (Zestril) 2.5 mg PO DAILY [facility] Stop: 08/05/17 09:01 Last Admin: 02/04/17 08:54 Dose: 2.5 mg Naloxone HCl (Narcan) 0.4 mg IVP Q2MIN PRN PRN Reason: Opioid Reversal Stop: 08/05/17 05:27 Nicotine (Nicoderm) 21 mg TD DAILY [facility] PRN Reason: Protocol Stop: 08/05/17 09:01 Last Admin: 02/04/17 08:58 Dose: Not Given Omeprazole (Prilosec) 20 mg PO DAILY@0730 [facility] PRN Reason: Protocol Stop: 08/05/17 08:45 Last Admin: 02/04/17 08:55 Dose: 20 mg Ondansetron HCl (Zofran) 4 mg IVP Q8HR PRN PRN Reason: Nausea And Vomiting Stop: 08/05/17 05:27 Oxycodone/Acetaminophen (Percocet 5/325) 1 each PO Q4HR PRN PRN Reason: Moderate Pain (4-6) Stop: 08/05/17 08:21 Last Admin: 02/04/17 08:54 Dose: 1 each Oxycodone/Acetaminophen (Percocet 10/325) 1 each PO Q6HR PRN PRN Reason: Severe Pain (7-10) Stop: 08/05/17 11:19 Last Admin: 02/04/17 12:22 Dose: 1 each Potassium Chloride (Potassium Chloride) 10 meq PO DAILY [facility] Stop: 08/05/17 09:01 Last Admin: 02/04/17 08:54 Dose: 10 meq Laboratory Tests 02/03/17 02/03/17 02/03/17 02:43 02:43 02:43 WBC 14.3 H Hgb Creatinine Troponin I 0.01 B-Natriuretic Peptide 1624 H Triglycerides Cholesterol LDL Cholesterol, Calc HDL Cholesterol 02/04/17 02/04/17 07:00 07:00 WBC 11.9 H Hgb 10.7 L Creatinine 0.66 L Troponin I B-Natriuretic Peptide Triglycerides 80 Cholesterol 120 LDL Cholesterol, Calc 88 HDL Cholesterol 16 L - Imaging and Cardiology Chest Xray: report reviewed Echo: report reviewed Cardiac cath: report reviewed - EKG Interpretation EKG results cardiology: personally reviewed (ECG with sinus tachycardia, HR 103 , unchanged from ECG 01/13/17), other (Telemetry reviewed with average HR 102, sinus tachycardia. PVCs, 4 couplet PVCs, and PACs noted.) Consult Discharge Plan - Plan Referrals: NO,PCP [Primary Care Provider] -
--- NOTE | 2017-02-04 17:10 | Internal Med Progress Note ---
Date of Encounter: 02/04/17 Time of Encounter: 12:30 - Assessment and plan (1) Bronchitis Current Visit: Yes Status: Acute Assessment and plan: Improving symptoms. Sepsis is ruled out. Continue IV Rocephin. Supplemental oxygen as needed and supportive care. (2) Acute combined systolic and diastolic congestive heart failure Current Visit: Yes Status: Acute Assessment and plan: Patient has questionable outpatient medication compliance. He does follow with cardiology as outpatient and reportedly has cardiac MRI scheduled later this month. Recent echocardiogram from last month showed severely reduced ejection fraction, around 10-20%, global systolic left ventricular dysfunction, moderate mitral and tricuspid regurgitation. Left heart catheterization showed minimal CAD, recommended medical management. Continue IV Lasix along with strict fluid restriction. Continues to have small amount of positive fluid balance at this time with no significant urine output/ weight loss. However, reports symptomatic improvement. Supplemental oxygen as needed. Continue beta rosalina and LORIN inhibitor as blood pressure tolerates. Cardiology consult appreciated, cannot adjust medications for that due to borderline low blood pressure. Recommend close outpatient follow-up. (3) Pulmonary embolism and infarction Current Visit: Yes Status: Chronic Assessment and plan: Continue anticoagulation with Eliquis. (4) Tobacco abuse Current Visit: Yes Status: Chronic Assessment and plan: Nicotine transdermal patch as needed. (5) CHF (congestive heart failure) Current Visit: Yes Status: Acute Qualifiers: Congestive heart failure type: combined Congestive heart failure chronicity : acute on chronic Qualified Code(s): I50.43 - Acute on chronic combined systolic (congestive) and diastolic (congestive) heart failure (6) Alopecia Current Visit: Yes Status: Chronic Assessment and plan: Posterior scalp alopecia and excoriation, uncertain dermatological condition. Patient has dermatology follow-up at [facility]. Requests local lidocaine solution along with narcotic pain medications, gabapentin and frequent wet-to-dry dressings, which patient obsessively changes every 1-2 hours. Recommend outpatient follow-up. (7) Tachycardia Current Visit: Yes Status: Chronic Assessment and plan: Review of previous medical records show that patient has chronic tachycardia, with heart rate in the low 100s, likely secondary to severe nonischemic cardiomyopathy. Continue beta rosalina as tolerated. (8) Non-ischemic cardiomyopathy Current Visit: Yes Status: Chronic - Subjective Interval history: Reports improvement in productive cough and shortness of breath. Patient is very talkative and obsessive about pain medications for his scalp lesion, which has been going on for at least 9-10 months. He is not cooperative with any further history taking. - Constitutional Vitals: Temp Pulse Resp BP Pulse Ox 97.9 F 95 18 102/66 97 02/04/17 16:03 02/04/17 16:03 02/04/17 16:03 02/04/17 16:03 02/04/17 16:03 General appearance: Present: A&O X 3, answers questions appropriately - Respiratory Respiratory exam: Present: CTAB. Absent: accessory muscle use, rales, rhonchi, wheezes - Cardiovascular Cardiovascular exam: Present: RRR, +S1, +S2, tachycardia. Absent: diastolic murmur, gallop, rubs, systolic murmur - GI/Abdominal GI/Abdominal exam: Present: normal bowel sounds, soft, no peritoneal signs. Absent: distended, tenderness - Extremities Exam Extremities exam: Present: full ROM, pedal edema (Trace), warm, radial pulses palpable and symetrical. Absent: calf tenderness, cyanotic - Neurological Exam Neurological exam: Present: CN II-XII intact, oriented X3, no focal deficits. Absent: pronater drift, facial droop, speech deficit - Skin Skin exam: Present: dry, intact Additional comments: Posterior scalp with large area of alopecia with some scalp excoriation, areas of focal erythema/mild bleeding. No swelling. Internal Medicine: Result - Labs CBC & Chem 7: 02/04/17 07:00 02/04/17 07:00 Labs: Short CBC 02/04/17 Range/Units 07:00 WBC 11.9 H (4.3-11.1) K/mcL Hgb 10.7 L (12.9-16.9) g/dL Hct 33.1 L (37.5-50.1) % Plt Count 332 (140-400) K/mcL Neutrophils # 8.5 (1.6-8.9) K/mcL BMP 02/04/17 07:00 Sodium 134 L Potassium 3.8 Chloride 102 Carbon Dioxide 24 BUN 16 Creatinine 0.66 L Glucose 107 H Calcium 9.0 - ABG Interpretation ABG results: PT/INR, D-dimer PT 29.4 Seconds (9.4-12.1) H 02/03/17 02:43 Consult Discharge Plan - Plan Referrals: NO,PCP [Primary Care Provider] -
[2017-02-05 04:59] LABS: BUN/Creatinine Ratio 23 (6-26); Blood Urea Nitrogen 14 mg/dL (8-26); Calcium 8.6 mg/dL (8.6-10.8); Carbon Dioxide 23 mEq/L (19-29); Chloride 101 mEq/L (98-109); Glucose 97 mg/dL (70-99); Osmolality,Calculated 278 (280-300); Potassium 3.6 mEq/L (3.5-4.5); Sodium 134 mEq/L (136-145); eGFR For African Americans > 60 (> 60); eGFR For Non-African Americans > 60 (> 60)
[2017-02-05 06:14] LABS: Basophils # 0.1 K/mcL (0.0-0.2); Basophils % 0.4 %; Eosinophils # 0.2 K/mcL (0.0-0.6); Eosinophils % 1.9 %; Hematocrit 30.5 % (37.5-50.1); Hemoglobin 9.9 g/dL (12.9-16.9); Immature Granulocytes % 0.9 % (0-4); Immature Platelets 3.7 % (1.1-6.1); Lymphocytes # 1.9 K/mcL (0.6-4.6); Lymphocytes % 16.6 %; Mean Corpuscular HGB Conc 32.5 g/dL (31.6-35.5); Mean Corpuscular Hemoglobin 29.8 pg (28.0-33.3); Mean Corpuscular Volume 91.9 fL (83.0-100.0); Mean Platelet Volume 10.5 fL (9.4-12.4); Neutrophils # 8.2 K/mcL (1.6-8.9); Platelet Count 300 K/mcL (140-400); Red Blood Count 3.32 M/mcL (4.19-5.50); Red Cell Distribution Width 14.5 % (11.5-14.5); Segmented Neutrophils % 71.2 %
[2017-02-05 06:51] VITALS: BP 102/68
[2017-02-05] MEDS: Nicotine 21 MG PATCH.TD24 TD SCH (07:32)
[2017-02-05] MEDS: APIXABAN 5 MG TABLET PO SCH (07:38)
[2017-02-05] MEDS: *HR* OxyCODONE/APAP 5/325 TABLET PO PRN (07:38)
[2017-02-05] MEDS: Furosemide 40 MG/4 ML VIAL IVP SCH (07:39)
[2017-02-05] MEDS: Gabapentin 300 MG CAPSULE PO SCH (07:40)
[2017-02-05] MEDS: Clotrimazole/Betameth Dip CRM 45 APPL/45 GM TUBE TP SCH (07:41)
[2017-02-05] MEDS: Lidocaine TOPICAL Soln 50 ML BOTTLE TP SCH (07:48)
--- NOTE | 2017-02-05 08:43 | Discharge Summary ---
Date of Encounter: 02/05/17 Time of Encounter: 08:39 - Discharge Diagnosis (1) Bronchitis Priority: Primary Status: Acute (2) Acute combined systolic and diastolic congestive heart failure Priority: Primary Status: Acute (3) Pulmonary embolism and infarction Priority: Secondary Status: Chronic (4) Tobacco abuse Priority: Secondary Status: Chronic (5) CHF (congestive heart failure) Priority: Secondary Status: Chronic Qualifiers: Congestive heart failure type: combined Congestive heart failure chronicity : acute on chronic Qualified Code(s): I50.43 - Acute on chronic combined systolic (congestive) and diastolic (congestive) heart failure (6) Alopecia Priority: Secondary Status: Chronic (7) Tachycardia Priority: Secondary Status: Chronic (8) Non-ischemic cardiomyopathy Priority: Secondary Status: Chronic - Discharge Medications Prescriptions: OxyCODONE/APAP 5/325 [Percocet 5/325 MG] 1 each PO Q6H PRN #15 tablet PRN Reason: Pain Home Medications: Gabapentin [Neurontin] 300 mg PO TID 07/17/16 [History] Albuterol Sulfate [Ventolin Hfa] 2 puff IH Q4H PRN 08/09/16 [History] Carvedilol 6.25 mg PO BID 08/09/16 [History] Furosemide [Lasix] 80 mg PO DAILY #0 08/13/16 [Rx] Potassium Chloride [K-Tab ER] 10 meq PO DAILY #20 tablet.er 08/13/16 [Rx] Apixaban [Eliquis] 5 mg PO BID 12/21/16 [History] Lisinopril 2.5 mg PO DAILY 12/25/16 [History] Lidocaine TOPICAL Soln [Xylocaine] 5 ml TP BID #2 bottle 01/09/17 [Rx] OxyCODONE/APAP 5/325 [Percocet 5/325 MG] 1 each PO Q6H PRN #15 tablet 02/05/17 [ Rx] Allergies/Adverse Reactions: Allergies Penicillins Allergy (Verified 02/03/17 08:16) Anaphylaxis SWELLING Date of admission: 02/03/17 05:03 Primary care physician: PCP NO Consults: 02/04/17 13:57 Consult to Cardiology [CONS] Routine Comment: Consulting Provider: [facility] Reason for Consult: Acute on chronic CHF Call Completed: Yes Discharging clinician: Autumn Martinez Anticipated date of discharge: 02/05/17 - Patient Status Disposition: Home, Self-Care Condition: Good Functional capacity at discharge: independent ambulation Overall status at discharge: patient is progressing back to baseline - Discharge Instructions Instructions: Oxycodone/Acetaminophen (By mouth), Heart Failure (DC) Follow Up With: NO,PCP [Primary Care Provider] - Additional Instructions: F/up with [facility] as scheduled F/up with Dermatology at [facility] as scheduled - Diet and Activity Activity: resume usual activities as tolerated Diet: low fat, low cholesterol, low salt diet (fluid restriction to 1.2L/day) Hospital course: Mr. Welch is a 36 year old male with the above medical problems who was admitted with worsening shortness of breath, cough and leg swelling. He was noted to be in acute on chronic combined CHF and was started on IV Lasix along with fluid restriction, beta rosalina. Telemetry monitoring remained uneventful and serial troponins were negative for ACS. Patient's recent echocardiogram showed significantly decreased ejection fraction, around 20%, with global systolic left ventricular dysfunction. cardiology was consulted and agreed with IV diuresis. Cardiac medications could not be titrated due to borderline low blood pressure. Patient's symptoms improved on this regimen, although his urine output could not be appropriately charted due to patient discarding the urine without informing his nurses. Patient was also noted to have a chronic posterior scalp wound with local area of alopecia, excoriation which the patient would obsessively rubbed with lidocaine along with frequent dressing changes. He is being evaluated by dermatology at [facility] and no diagnosis has been reached yet. He is being discharged with the limited prescription for 15 pills of 5/325 mg Percocet for pain related to scalp wound. He is otherwise medically stable for discharge, dietary restrictions and medication compliance and cardiology follow-up is reinforced and patient verbalized understanding. - Time Spent with Patient Total time spent providing and/or coordinating discharge services: Greater than 30 minutes (45 min) - Constitutional Vitals: Temp Pulse Resp BP Pulse Ox 98.5 F 94 18 102/68 95 02/05/17 06:48 02/05/17 06:48 02/05/17 06:48 02/05/17 06:48 02/05/17 06:48 General appearance: Present: A&O X 3, answers questions appropriately - Respiratory Respiratory exam: Present: CTAB. Absent: accessory muscle use, rales, rhonchi, wheezes - Cardiovascular Cardiovascular exam: Present: RRR, +S1, +S2, tachycardia. Absent: diastolic murmur, gallop, rubs, systolic murmur
== END 2017-02-05 09:12 | disposition home or self-care (01) ==
LOC: 2ANU 01:50 → EMEROO 01:50 → 2ANU 05:32 → SUATTDRO 05:53 → 2ANU 20:26
PROVIDERS: ADMIT Internal Medicine; ATTEND Internal Medicine

== ENCOUNTER 2017-02-12 19:18 | Inpatient (IN) ==
[2017-02-12] MEDS ORDERED: *HR* OxyCODONE/APAP 5/325 TABLET PO ONE (19:29)
--- NOTE | 2017-02-12 19:36 | Emergency Department Note ---
Disposition Clinical Impression: Acute on chronic diastolic CHF (congestive heart failure), Scalp lesion Chest pain Qualifiers: Chest pain type: unspecified Qualified Code(s): R07.9 - Chest pain, unspecified Disposition: Admitted As Inpatient Condition: Fair Referrals: NO,PCP [Primary Care Provider] - Forms: ED Satisfaction Letter Time of Disposition: 22:11 General Adult HPI - General Chief complaint: ED Chest Pain Stated complaint: chest pain/head pain Time Seen by Provider: 02/12/17 19:23 Source: patient, EMS Mode of arrival: EMS Limitations: no limitations Nursing Notes Reviewed: Yes Vital Signs Reviewed: Yes - History of Present Illness HPI Narrative: 36-year-old male history of PE, heart failure EF 20%, hypertension presents for chest pain and head pain. Reports yesterday around 1900 while caring the door to the barn experience left-sided chest pain which he describes as is an intense spasm. Pain lasted for roughly 4 to 5 minutes improved with rest. Since then he has been having intermittent pain that he reports as a spasm but not as intense. Pain is nonradiating. Reported some shortness of breath but denies any diaphoresis, nausea or vomiting. He believes some of this pain is due to his head. He reports several months ago he was diagnosed with shingles to that area. It had scabbed over and is currently at its current state. He is scheduled to follow at [facility] dermatology March 08. Was recently seen at the wound care clinic with a biopsy without any known etiology. He currently takes Percocet as well as lidocaine for the discomfort. He continues to pick at the area and has a psych history of this. Right scalp appears raw and has some bleeding. He denies any recent injuries or fall. He denies any alcohol use today. He currently takes Eliquis for his history of blood clots. History of a sub massive PE with a subsequent ischemic cardiomyopathy. Pain Scale: 8 - Related Data Home Medications Medication Instructions Recorded Confirmed Gabapentin [Neurontin] 300 mg PO TID 07/17/16 02/03/17 Apixaban [Eliquis] 5 mg PO BID 12/21/16 02/03/17 Lisinopril 2.5 mg PO DAILY 12/25/16 02/03/17 Carvedilol [Coreg] 6.25 mg PO BIDWM 02/12/17 02/12/17 Furosemide [Lasix] 80 mg PO DAILY 02/12/17 02/12/17 Previous Rx's Medication Instructions Recorded Potassium Chloride [K-Tab ER] 10 meq PO DAILY #20 tablet.er 08/13/16 Allergies Allergy/AdvReac Type Severity Reaction Status Date / Time Penicillins Allergy Anaphylaxis Verified 02/03/17 08:16 All systems ED: reviewed and negative except as stated. Constitutional: Denies: fever Cardiovascular: Reports: chest pain Respiratory: Reports: dyspnea Gastrointestinal: Denies: abdominal pain, nausea, vomiting Genitourinary: Denies: urgency, dysuria Musculoskeletal: Denies: back pain Integumentary: Reports: rash, abrasion, lesions Neurological: Denies: headache Past Medical History - Past Medical History Attestation: Yes The following information was validated with the patient. Source: patient Medical history: Reports: CHF, DVT, hyperlipidemia, hypertension, pulmonary embolus Surgical history: Reports: no surgical history, non-contributory Psychiatric history: Reports: anxiety, depression - Social History Smoking Status: Current every day smoker Smokeless Tobacco Status: No Alcohol use: Reports: none Drug use: Reports: marijuana Physical Exam - General Limitations: no limitations General appearance: alert, in no apparent distress - Expanded Head Exam Head exam physicial: Present: other (Right parietal and occipital has raw exposed skin) 1 - Raw exposed excoriated, no hair present - Eye Eye exam: Present: normal appearance, PERRL, EOMI - ENT ENT exam: normal exam, normal oropharynx, mucous membranes moist - Neck Neck exam: Present: normal inspection, full ROM, trachea midline - Chest Chest inspection: Present: normal inspection, symmetric chest wall rise - Respiratory Respiratory exam: Present: normal lung sounds bilaterally. Absent: respiratory distress - Cardiovascular Cardiovascular exam: Present: regular rate, normal rhythm, normal heart sounds - Abdominal Exam Abdominal exam: Present: soft, Non-Tender, normal bowel sounds. Absent: tenderness, distention, guarding, rebound, rigidity - Extremities Exam Extremities exam: Present: normal inspection, full ROM, pedal edema (+2 symmetrical bilaterally). Absent: tenderness - Back Exam Back exam: Present: normal inspection, full ROM. Absent: tenderness - Neurological Exam Neurological exam: Present: alert, oriented X3, normal gait - Psychiatric Psychiatric exam: Present: normal affect, normal mood - Skin Skin exam: Present: warm, dry, intact, normal color Course Course Narrative: 36-year-old male history of diabetes, hypertension, systolic congestive heart failure EF 20% presents with chest pain and had pain. He has a scalp lesions that is currently being worked up by dermatology at [facility]. Patient reports chest pain after lifting a barn door pain resolved within 5 minutes. He continues to have intermittent pain is not reproducible palpation. Vitals are stable. Patient constantly picks at his scalp lesion even when told not to. His heart's regular rate and rhythm. Lungs are clear to auscultation bilaterally. No rales or crackles. He has +2 pedal edema symmetrical bilaterally. Concern for acute heart failure picture. Will do chest pain workup with BNP. Patient is in agreement with plan. - Reevaluation(s) Reevaluation #1: BNP 1373. BP is stable. Will place on nitro paste here and give a dose of lasix 40 mg. Patient reports he has noticed increased swelling in his legs, he has increased his home dose of lasix without physician order to help with the swelling. Impression is acute exacerbation of systolic heart failure and chest pain. Plan for admission to hospital. Patient is in agreement with plan. Time: 21:20 Reevaluation #2: He has a leukocytosis of 18 with 14% neutrophils. This is likely from his scalp lesion. He reports the anaphylactic reaction to penicillins as a kid. Wish to cover for possible staph and MRSA. Will start on Clindamycin. Impression is acute exacerbation of CHF. Time: 22:01 - Consultations Consultation #1: Spoke with on-call hospitalist kareem Mustafa to admit for acute exacerbation of CHF BNP 1300. No further orders at this time Time: 22:01 Vital Signs Temperature 98.0 F 02/12/17 19:20 Pulse Rate 110 02/12/17 19:20 Respiratory Rate 18 02/12/17 19:20 Blood Pressure 123/112 02/12/17 19:20 O2 Sat by Pulse Oximetry 93 02/12/17 19:20 Temperature 98.0 F 02/12/17 19:20 Pulse Rate 113 02/12/17 20:54 Respiratory Rate 18 02/12/17 20:54 Blood Pressure 134/78 02/12/17 20:54 O2 Sat by Pulse Oximetry 97 02/12/17 20:54 Oxygen Delivery Oxygen Delivery Room Air Medical Decision Making - MDM Narrative Medical decision making narrative: I examined this patient and my medical decision-making was reviewed with the SHIPBUILDING DRAFTSPERSON/PA/Advanced Practice Nurse/Resident Physician. I agree with the documented findings, disposition and treatment plan as described except to the extent set forth below. Patient was seen and evaluated on arrival by Dr. Leong myself, agree with evaluation and management plan, supervise his care to stay. Patient's primary by EMS due to chest discomfort. He has had a history of PE in the past along with heart failure. No history of atrial fibrillation. He said this occurred with some exertion. 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 One of our other physicians and seen him and so that was the same thing he had then. We will order a cardiac workup on him and then reassess. He may need admission. He is in agreement with this plan as is his family. 2145 hrs.: Patient's labs are coming back. He does look like he has CHF. This inflammatory area in his head has possibility of infection though it does not look like a true cellulitis for me. With his history of picking the area I think that we should treat this with antibiotics along with his 18,000 white count. Oriented she is clindamycin, as I do not think we need to go with a drug like vancomycin at this time, but he has a supposed allergy to penicillin as a kid so due to that I will not use a first generation cephalosporin either. Remembering him into the hospital at this time impression is acute exacerbation of CHF, and leukocytosis, with secondary scalp infection versus inflammatory reaction. - Medical Records Medical records reviewed: Yes I reviewed the patient's medical records. - Lab Data Lab results reviewed: Yes I reviewed the patient's lab results. Result diagrams: 02/12/17 19:42 02/12/17 19:42 Lab Results 02/12/17 02/12/17 02/12/17 Range/Units 19:42 19:42 19:42 WBC 18.5 H (4.3-11.1) K/mcL RBC 3.62 L (4.19-5.50) M/mcL Hgb 10.4 L (12.9-16.9) g/dL Hct 33.1 L (37.5-50.1) % MCV 91.4 (83.0-100.0) fL MCH 28.7 (28.0-33.3) pg MCHC 31.4 L (31.6-35.5) g/dL RDW 14.9 H (11.5-14.5) % Plt Count 422 H (140-400) K/mcL MPV 9.3 L (9.4-12.4) fL Immature Gran % 0.5 (0-4) % Seg Neutrophils % 80.5 % Lymphocytes % 9.2 % Monocytes % 8.5 % Eosinophils % 1.0 % Basophils % 0.3 % Neutrophils # 14.9 H (1.6-8.9) K/mcL Lymphocytes # 1.7 (0.6-4.6) K/mcL Monocytes # 1.6 H (0.0-1.3) K/mcL Eosinophils # 0.2 (0.0-0.6) K/mcL Basophils # 0.1 (0.0-0.2) K/mcL Immature Plt Fraction 2.0 (1.1-6.1) % Sodium 137 (136-145) mEq/L Potassium 3.9 (3.5-4.5) mEq/L Chloride 102 (98-109) mEq/L Carbon Dioxide 27 (19-29) mEq/L BUN 14 (8-26) mg/dL Creatinine 0.76 (0.72-1.25) mg/dL Est GFR ( Amer) > 60 (> 60) Est GFR (Non-Af Amer) > 60 (> 60) BUN/Creatinine Ratio 18 (6-26) Glucose 104 H (70-99) mg/dL Calculated Osmolality 285 (280-300) Calcium 8.4 L (8.6-10.8) mg/dL Troponin I 0.00 (0-0.03) ng/mL B-Natriuretic Peptide (0-100) pg/mL 02/12/17 Range/Units 19:42 WBC (4.3-11.1) K/mcL RBC (4.19-5.50) M/mcL Hgb (12.9-16.9) g/dL Hct (37.5-50.1) % MCV (83.0-100.0) fL MCH (28.0-33.3) pg MCHC (31.6-35.5) g/dL RDW (11.5-14.5) % Plt Count (140-400) K/mcL MPV (9.4-12.4) fL Immature Gran % (0-4) % Seg Neutrophils % % Lymphocytes % % Monocytes % % Eosinophils % % Basophils % % Neutrophils # (1.6-8.9) K/mcL Lymphocytes # (0.6-4.6) K/mcL Monocytes # (0.0-1.3) K/mcL Eosinophils # (0.0-0.6) K/mcL Basophils # (0.0-0.2) K/mcL Immature Plt Fraction (1.1-6.1) % Sodium (136-145) mEq/L Potassium (3.5-4.5) mEq/L Chloride (98-109) mEq/L Carbon Dioxide (19-29) mEq/L BUN (8-26) mg/dL Creatinine (0.72-1.25) mg/dL Est GFR ( Amer) (> 60) Est GFR (Non-Af Amer) (> 60) BUN/Creatinine Ratio (6-26) Glucose (70-99) mg/dL Calculated Osmolality (280-300) Calcium (8.6-10.8) mg/dL Troponin I (0-0.03) ng/mL B-Natriuretic Peptide 1373 H (0-100) pg/mL - Radiology Data Radiology results reviewed: Yes I reviewed the patient's radiology results. Chest X-Ray 02/12/17 19:24 IMPRESSION: Stable portable study. D/ / Angela Barrios Cha, MD / Angela Barrios Cha, MD Interpreting Provider: Angela Barrios Cha, MD - EKG Data EKG #1 EKG attestation: Yes I reviewed and interpreted this EKG. EKG results narrative: EKG performed 1928 sinus tachycardia 109 bpm, good R-R wave progression, normal axis, there are nonspecific ST T-wave changes, no ST elevations consistent with STEMI pattern. Intervals are within normal limits NM interval 148 QRS 94 QT QTC 418 482. Compared to old EKG performed 02/03/2017 shows consistent findings. No acute ischemic changes.
[2017-02-12 19:49] LABS: Basophils % 0.3 %; Hematocrit 33.1 % (37.5-50.1); Hemoglobin 10.4 g/dL (12.9-16.9); Immature Granulocytes % 0.5 % (0-4); Lymphocytes % 9.2 %; Mean Corpuscular HGB Conc 31.4 g/dL (31.6-35.5); Mean Corpuscular Hemoglobin 28.7 pg (28.0-33.3); Mean Corpuscular Volume 91.4 fL (83.0-100.0); Mean Platelet Volume 9.3 fL (9.4-12.4); Monocytes % 8.5 %; Platelet Count 422 K/mcL (140-400); Red Blood Count 3.62 M/mcL (4.19-5.50); Red Cell Distribution Width 14.9 % (11.5-14.5); Segmented Neutrophils % 80.5 %
[2017-02-12 19:50] LABS: Basophils # 0.1 K/mcL (0.0-0.2); Eosinophils # 0.2 K/mcL (0.0-0.6); Lymphocytes # 1.7 K/mcL (0.6-4.6); Monocytes # 1.6 K/mcL (0.0-1.3); Neutrophils # 14.9 K/mcL (1.6-8.9)
[2017-02-12 20:00] LABS: BUN/Creatinine Ratio 18 (6-26); Blood Urea Nitrogen 14 mg/dL (8-26); Calcium 8.4 mg/dL (8.6-10.8); Carbon Dioxide 27 mEq/L (19-29); Chloride 102 mEq/L (98-109); Glucose 104 mg/dL (70-99); Osmolality,Calculated 285 (280-300); Potassium 3.9 mEq/L (3.5-4.5); Sodium 137 mEq/L (136-145); eGFR For African Americans > 60 (> 60); eGFR For Non-African Americans > 60 (> 60)
[2017-02-12] MEDS ORDERED: Furosemide 40 MG/4 ML VIAL IVP ONE (21:07)
[2017-02-12] MEDS ORDERED: Nitroglycerin 1 INCH/GM PACKET TP ONE (21:07)
[2017-02-12] MEDS ORDERED: Clindamycin 600 MG/50 ML 600 MG/50 ML IV.SOLN IVPB ONE (21:48)
[2017-02-12] MEDS ORDERED: Lidocaine 4% CREAM (LMX) 5 GM TP ONE (22:07)
[2017-02-12] MEDS ORDERED: Aspirin 81 MG TAB.CHEW PO STA (22:11)
--- NOTE | 2017-02-12 22:55 | Internal Med History&Physical ---
Date of Encounter: 02/13/17 Time of Encounter: 22:15 Assessment and Plan (1) Acute combined systolic and diastolic congestive heart failure Current visit: No Status: Acute Acute exacerbation of chronic systolic and diastolic congestive heart failure - nonischemic cardiomyopathy LVEF is around 10-20% with global systolic LV dysfunction and moderate mitral and tricuspid regurgitation. Recent LHC shows minimal CAD, recommended medical management Continue IV Lasix with strict fluid restriction. Daily weight and strict I's and O's to be maintained. Continu beta rosalina and marysol inhibitor. Continue O2 via nasal cannula. Cardiology consult (2) Scalp lesion Current visit: Yes Status: Chronic chronic -unclear condition Possibly infected - continue IV Clindamycin empirically posterior scalp alopecia and excoriation h/o shingles as per patient - he continues to pick at the lesion Follows up with dermatology at [facility] wound care consult - dressing change daily use topical lidocaine as needed (3) Pulmonary embolism and infarction Current visit: No Status: Chronic chronic - with h/o pulmonary infarction continue anticoagulation with Eliquis (4) Non-ischemic cardiomyopathy Current visit: No Status: Chronic chronic, continue home meds (5) Tachycardia Current visit: No Status: Chronic chronic tahcycardia as per medical records with HR ~100s, likely due to non- ischemic cardiomyopathy Continue Beta rosalina as tolerated (6) Tobacco abuse Current visit: No Status: Chronic counselled about cessation, nicotine patch (7) Non-compliance Current visit: Yes Status: Acute Suspected noncompliance for CHF. Counseled (8) DVT prophylaxis Current visit: No Status: Acute continue Eliquis Internal Medicine - H&P: HPI Chief complaint: Chest pain, scalp pain Admitted From: Emergency Dept History of present illness: Mr. Welch is a 36 year old male with past medical history of combined CHF systolic and diastolic dysfunction, nonischemic cardiomyopathy, tachycardia, scalp lesion with excoriation, history of pulmonary embolus, hypertension, hyperlipidemia and history of DVT. Patient presents to the ED with complaints of left-sided chest pain after lifting a barn door. He states the pain resolved within 5 minutes. Pain is nonradiating. States it is a spasm-like pain but not intense. It is intermittent. Also complains of bilateral lower leg edema. Patient denies shortness of breath. No diaphoresis nausea or vomiting. Patient's main complaint on examination is the itching and burning sensation over his scalp. This is a chronic condition for the patient, he does have a scalp lesion with excoriation and follows up at [facility] dermatology. Patient states he was initially diagnosed with shingles to that area and he has been picking at it and is now become a large excoriated area. Patient takes Percocet and uses topical lidocaine for the discomfort. Patient continues to pick at the lesion. On examination patient is awake and alert. Not in any distress. He is able to provide all history. His friend is at bedside. Patient is in discomfort due to the scalp burning and itching and he is requesting dressing change and lidocaine for the area. Patient denies palpitations, lightheadedness, dizziness or any other problems at present. Patient is being admitted for acute exacerbation of CHF. Also being admitted for scalp lesion which is possibly infected, will need IV antibiotics. Patient and his friend have been explained about condition and plan of care in detail. He understood and agreed. No unanswered questions. Past Med Surg Social Fam HX - Past Medical History Medical history: CHF (non-ischmic cardiomyopathy), DVT, hyperlipidemia, hypertension, pulmonary embolus Psychiatric history: anxiety, depression - Past Surgical History Surgical History: no surgical history, other ([facility] - 12/2016 - minimal CAD) - Social History Smoking Status: Current every day smoker Smokeless Tobacco Status: No Alcohol use: none Drug use: marijuana - Family History Mother Family Member Ethnicity: Non- Living Status: Still Living Hx Family Cardiac Disorders: No Hx Family Respiratory Disorders: No Hx Family Cancer: Yes Hx Family GI Disorders: No Hx Family Endocrine Disorder: No Hx Family Neuromuscular Disorders: No Hx Family Neurologic Disorders: No Hx Family HEENT Disorders: No Internal Medicine - H&P: Meds RX: Gabapentin [Neurontin] 600 mg PO TID 07/17/16 [History] RX: Potassium Chloride [K-Tab ER] 10 meq PO DAILY #20 tablet.er 08/13/16 [Rx] RX: Apixaban [Eliquis] 5 mg PO BID 12/21/16 [History] RX: Lisinopril 2.5 mg PO DAILY 12/25/16 [History] Carvedilol [Coreg] 6.25 mg PO BIDWM 02/12/17 [History] Furosemide [Lasix] 80 mg PO DAILY 02/12/17 [History] Allergies Penicillins Allergy (Verified 02/03/17 08:16) Anaphylaxis SWELLING All Systems PM: A 10-system review of systems was performed and is negative for pertinent findings except as documented above in the HPI. - Constitutional Constitutional: as per HPI, no fever(s), no weakness - EENT Eyes: no loss of vision - Cardiovascular Cardiovascular ROS IM: dyspnea, dyspnea on exertion, orthopnea, no chest pain, no lightheadedness - Respiratory Respiratory: cough, dyspnea, no wheezing, no chest congestion - Gastrointestinal Gastrointestinal: no abdominal pain, no constipation, no diarrhea - Integumentary Integumentary IM: non-healing lesions (scalp lesion, ithcing/burning) - Neurological Neurological ROS: no abnormal speech, no focal weakness, no loss of vision, no weakness - Constitutional Vitals: Temp Pulse Resp BP Pulse Ox 98.0 F 113 18 134/78 97 02/12/17 19:20 02/12/17 20:54 02/12/17 20:54 02/12/17 20:54 02/12/17 20:54 General appearance: Present: A&O X 3, no acute distress, answers questions appropriately - Head Head exam: Present: atraumatic - ENT ENT exam: Present: mucous membranes moist - Neck Neck exam general surgery: Present: supple - Respiratory Respiratory exam: Present: CTAB. Absent: respiratory distress, rhonchi, wheezes - Cardiovascular Cardiovascular exam: Present: +S1, +S2, systolic murmur, tachycardia - GI/Abdominal GI/Abdominal exam: Present: soft. Absent: guarding, tenderness - Extremities Exam Extremities exam: Present: pedal edema (b/l 3+ pitting), radial pulses palpable and symetrical. Absent: cyanotic - Neurological Exam Neurological exam: Present: alert, oriented X3, no focal deficits Internal Med - H&P Results - Labs CBC & Chem 7: 02/12/17 19:42 02/12/17 19:42
[2017-02-12] MEDS ORDERED: Naloxone 0.4 MG/ML INJ IVP PRN (22:58)
[2017-02-12] MEDS ORDERED: Ondansetron 4 MG/2 ML VIAL IVP PRN (22:58)
[2017-02-12] MEDS ORDERED: Acetaminophen 325 MG TABLET PO PRN (22:58)
[2017-02-12] MEDS: Clindamycin 600 MG/50 ML 600 MG/50 ML IV.SOLN IVPB SCH (23:49)
[2017-02-13 01:11] LABS: Hemoglobin 11.5 g/dL (12.9-16.9); Mean Corpuscular HGB Conc 31.9 g/dL (31.6-35.5); Mean Corpuscular Hemoglobin 29.6 pg (28.0-33.3); Mean Corpuscular Volume 92.5 fL (83.0-100.0); Mean Platelet Volume 9.9 fL (9.4-12.4); Platelet Count 428 K/mcL (140-400); Red Blood Count 3.89 M/mcL (4.19-5.50); Red Cell Distribution Width 15.1 % (11.5-14.5)
[2017-02-13 01:15] LABS: INR 2.1; Prothrombin Time 23.7 Seconds (9.4-12.1)
[2017-02-13 01:22] LABS: BUN/Creatinine Ratio 26 (6-26); Blood Urea Nitrogen 20 mg/dL (8-26); Calcium 8.6 mg/dL (8.6-10.8); Carbon Dioxide 23 mEq/L (19-29); Chloride 101 mEq/L (98-109); Glucose 93 mg/dL (70-99); Osmolality,Calculated 284 (280-300); Potassium 3.8 mEq/L (3.5-4.5); Sodium 136 mEq/L (136-145); eGFR For African Americans > 60 (> 60); eGFR For Non-African Americans > 60 (> 60)
[2017-02-13] MEDS ORDERED: *HR* OxyCODONE/APAP 5/325 TABLET PO PRN ×2 (03:24→04:01)
[2017-02-13] MEDS ORDERED: Lidocaine 4% CREAM (LMX) 5 GM TP PRN (03:24)
[2017-02-13] MEDS: Clindamycin 600 MG/50 ML 600 MG/50 ML IV.SOLN IVPB SCH ×2 (08:12→17:04)
[2017-02-13] MEDS: APIXABAN 5 MG TABLET PO SCH ×2 (08:12→20:17)
[2017-02-13] MEDS: Famotidine 20 MG TABLET PO SCH ×2 (08:12→20:17)
[2017-02-13] MEDS: Nicotine 21 MG PATCH.TD24 TD SCH (08:13)
[2017-02-13] MEDS ORDERED: Furosemide 40 MG/4 ML VIAL IVP SCH ×2 (09:00→17:00)
[2017-02-13] MEDS: *HR* OxyCODONE/APAP 5/325 TABLET PO PRN ×2 (11:37→20:17)
[2017-02-13] MEDS: Neosporin OINT 15 GM TUBE TP SCH ×2 (13:32→20:19)
[2017-02-13] MEDS ORDERED: Lidocaine 4% CREAM (LMX) 5 GM TP SCH (15:00)
--- NOTE | 2017-02-13 15:07 | Internal Med Progress Note ---
<FredReggie ansari - Last Filed: 02/13/17 15:05> Date of Encounter: 02/13/17 Time of Encounter: 15:05 - Assessment and plan (1) Acute combined systolic and diastolic congestive heart failure Current Visit: No Status: Acute Assessment and plan: On chronic. Likely related to noncompliance as the patient reports noncompliance with fluid restriction or salt restriction and drinking a large amount not do. Recent EF was 10-20% with global systolic dysfunction. Heart catheterization in the past that showed no obstructing lesions. IV diuresis with 80 mg IV Lasix twice a day. Continue medical treatment with Reinier and beta rosalina. Patient is scheduled for cardiac MRI next week and may be a candidate for ICD placement in the near future. (2) Pulmonary embolism and infarction Current Visit: No Status: Chronic Assessment and plan: History of. No evidence of active thrombus. Continue Eliquis (3) Tachycardia Current Visit: No Status: Chronic Assessment and plan: Chronic, related to nonischemic cardiomyopathy. Continue beta rosalina. 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 Patient does have a leukocytosis so there may be a mild skin infection. Continue clindamycin. Continue topical lidocaine for pain relief. Has an appointment to follow-up with dermatology at [facility] the near future. (5) DVT prophylaxis Current Visit: No Status: Acute Assessment and plan: Patient is anticoagulated with Eliquis - Subjective Interval history: Patient seen and examined at bedside. Patient states that he feels okay today. He reports his legs are more swollen than normal. He denies any shortness of breath. He does report pain and itching of his chronic scalp wound. - Constitutional Vitals: Temp Pulse Resp BP Pulse Ox 97.6 F 98 16 99/70 96 02/13/17 11:11 02/13/17 11:11 02/13/17 11:11 02/13/17 11:11 02/13/17 11:11 General appearance: Present: A&O X 3, no acute distress, answers questions appropriately - Head Additional comments: Is an area of alopecia with erythema and abrasions to the right posterior cranium. No draining or bleeding noted. - Respiratory Respiratory exam: Present: decreased breath sounds. Absent: rales, rhonchi, wheezes - Cardiovascular Cardiovascular exam: Present: RRR. Absent: gallop, rubs, systolic murmur - GI/Abdominal GI/Abdominal exam: Present: normal bowel sounds, soft. Absent: distended, tenderness - Extremities Exam Extremities exam: Present: pedal edema (2+) Additional comments: Excoriations to the lower extremity bilaterally. - Neurological Exam Neurological exam: Present: alert, CN II-XII intact, oriented X3, no focal deficits Internal Medicine: Result - Labs CBC & Chem 7: 02/13/17 00:38 02/13/17 00:38 Labs: Short CBC 02/13/17 Range/Units 00:38 WBC 19.9 H (4.3-11.1) K/mcL Hgb 11.5 L (12.9-16.9) g/dL Hct 36.0 L (37.5-50.1) % Plt Count 428 H (140-400) K/mcL BMP 02/13/17 00:38 Sodium 136 Potassium 3.8 Chloride 101 Carbon Dioxide 23 BUN 20 Creatinine 0.76 Glucose 93 Calcium 8.6 - ABG Interpretation ABG results: PT/INR, D-dimer PT 23.7 Seconds (9.4-12.1) H 02/13/17 00:38 Consult Discharge Plan - Plan Referrals: Cisco Sprague DO [Primary Care Provider] - <Dutch Villa - Last Filed: 02/13/17 15:30> Date of Encounter: 02/13/17 - Constitutional Vitals: Temp Pulse Resp BP Pulse Ox 97.6 F 98 16 99/70 96 02/13/17 11:11 02/13/17 11:11 02/13/17 11:11 02/13/17 11:11 02/13/17 11:11 Internal Medicine: Result - Labs CBC & Chem 7: 02/13/17 00:38 02/13/17 00:38 Labs: Short CBC 02/13/17 Range/Units 00:38 WBC 19.9 H (4.3-11.1) K/mcL Hgb 11.5 L (12.9-16.9) g/dL Hct 36.0 L (37.5-50.1) % Plt Count 428 H (140-400) K/mcL BMP 02/13/17 00:38 Sodium 136 Potassium 3.8 Chloride 101 Carbon Dioxide 23 BUN 20 Creatinine 0.76 Glucose 93 Calcium 8.6 - ABG Interpretation ABG results: PT/INR, D-dimer PT 23.7 Seconds (9.4-12.1) H 02/13/17 00:38 - Attending Attestation I examined this patient and my medical decision-making was reviewed with the CASH REGISTER BALANCER/PA/Advanced Practice Nurse/Resident Physician. I agree with the documented findings, disposition and treatment plan as described except to the extent set forth below. Need IV diuresis ( large doses) and close monitoring. monitoring of electrolytes.
[2017-02-13] MEDS: Silvasorb 44.4 ML TUBE TP SCH (17:05)
[2017-02-13] MEDS: Furosemide 40 MG/4 ML VIAL IVP SCH (17:24)
--- NOTE | 2017-02-13 17:46 | Electrocardiograph Report ---
[address] [address] Test Date: 2017-02-12 Pat Name: Isaac Welch Department: 105 Room: 3B Gender: M Dozer Operator: : 1980 Requested By: Wilder Pino Order Number: [id number] Reading MD: Sunil Dominguez Measurements Intervals [place] Rate: 109 P: 49 [place]: 148 QRS: 3 QRSD: 94 T: 55 QT: 418 QTc: 482 Interpretive Statements SINUS TACHYCARDIA POSSIBLE LEFT ATRIAL ENLARGEMENT NONSPECIFIC ST \T\ T-WAVE ABNORMALITY ABNORMAL RHYTHM ECG Electronically Signed On 02-13-2017 17:45:07 EDT by Sunil Dominguez
[2017-02-14] MEDS: *HR* OxyCODONE/APAP 5/325 TABLET PO PRN ×4 (02:17→20:02)
[2017-02-14] MEDS: Lidocaine OINT 35.44 GM TUBE TP PRN ×4 (02:18→15:38)
[2017-02-14] MEDS ORDERED: Albuterol 2.5 MG/3 ML NEBULIZER IH PRN (05:01)
[2017-02-14 05:45] LABS: Basophils # 0.1 K/mcL (0.0-0.2); Basophils % 0.4 %; Eosinophils # 0.2 K/mcL (0.0-0.6); Eosinophils % 1.6 %; Hematocrit 29.8 % (37.5-50.1); Immature Granulocytes % 0.4 % (0-4); Lymphocytes # 2.1 K/mcL (0.6-4.6); Mean Corpuscular HGB Conc 32.2 g/dL (31.6-35.5); Mean Corpuscular Hemoglobin 29.1 pg (28.0-33.3); Mean Corpuscular Volume 90.3 fL (83.0-100.0); Mean Platelet Volume 10.3 fL (9.4-12.4); Monocytes # 1.2 K/mcL (0.0-1.3); Monocytes % 9.1 %; Neutrophils # 10.1 K/mcL (1.6-8.9); Platelet Count 339 K/mcL (140-400); Red Cell Distribution Width 14.8 % (11.5-14.5); Segmented Neutrophils % 73.5 %
[2017-02-14 05:46] LABS: Hemoglobin 9.6 g/dL (12.9-16.9)
[2017-02-14 05:51] LABS: INR 2.2; Prothrombin Time 24.3 Seconds (9.4-12.1)
[2017-02-14 05:59] LABS: BUN/Creatinine Ratio 28 (6-26); Blood Urea Nitrogen 20 mg/dL (8-26); Calcium 8.3 mg/dL (8.6-10.8); Carbon Dioxide 27 mEq/L (19-29); Chloride 102 mEq/L (98-109); Glucose 108 mg/dL (70-99); Magnesium 1.9 mg/dL (1.6-2.6); Osmolality,Calculated 287 (280-300); Potassium 3.7 mEq/L (3.5-4.5); Sodium 137 mEq/L (136-145); eGFR For African Americans > 60 (> 60); eGFR For Non-African Americans > 60 (> 60)
[2017-02-14] MEDS: Neosporin OINT 15 GM TUBE TP SCH ×2 (07:42→20:03)
[2017-02-14] MEDS: Silvasorb 44.4 ML TUBE TP SCH (07:42)
[2017-02-14] MEDS: APIXABAN 5 MG TABLET PO SCH ×2 (07:43→20:03)
[2017-02-14] MEDS: Clindamycin 600 MG/50 ML 600 MG/50 ML IV.SOLN IVPB SCH ×3 (07:43→17:28)
[2017-02-14] MEDS: Furosemide 40 MG/4 ML VIAL IVP SCH ×2 (07:43→17:28)
[2017-02-14] MEDS: Famotidine 20 MG TABLET PO SCH ×2 (07:43→20:02)
[2017-02-14] MEDS: Nicotine 21 MG PATCH.TD24 TD SCH (07:48)
--- NOTE | 2017-02-14 11:16 | Internal Med Progress Note ---
<FredReggie ansari - Last Filed: 02/14/17 11:14> Date of Encounter: 02/14/17 Time of Encounter: 11:14 - Assessment and plan (1) Acute combined systolic and diastolic congestive heart failure Current Visit: No Status: Acute Assessment and plan: On chronic. Likely related to noncompliance as the patient reports noncompliance with fluid restriction or salt restriction and drinking a large amount not do. Recent EF was 10-20% with global systolic dysfunction. Heart catheterization in the past that showed no obstructing lesions. IV diuresis with 80 mg IV Lasix twice a day. Continue medical treatment with Reinier and beta rosalina. Patient is scheduled for cardiac MRI next week and may be a candidate for ICD placement in the near future. Patient may also benefit from evaluation for left ventricular systolic device or cardiac transplantation in the future. (2) Pulmonary embolism and infarction Current Visit: No Status: Chronic Assessment and plan: History of. No evidence of active thrombus. Continue Eliquis (3) Tachycardia Current Visit: No Status: Chronic Assessment and plan: Chronic, related to nonischemic cardiomyopathy. Continue beta rosalina. 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 Patient does have a leukocytosis so there may be a mild skin infection. Continue clindamycin. Continue topical lidocaine for pain relief. Has an appointment to follow-up with dermatology at [facility] the near future. (5) DVT prophylaxis Current Visit: No Status: Acute Assessment and plan: Patient is anticoagulated with Eliquis - Subjective Interval history: Patient seen and examined at bedside. Patient states that he feels slightly better today. He reports his legs are more swollen than normal. He denies any shortness of breath. He does report pain and itching of his chronic scalp wound that is mildly improved. - Constitutional Vitals: Temp Pulse Resp BP Pulse Ox 98.0 F 99 16 107/75 97 02/14/17 07:50 02/14/17 07:50 02/14/17 07:50 02/14/17 07:50 02/14/17 07:50 General appearance: Present: A&O X 3, no acute distress, answers questions appropriately - Head Additional comments: Palpation of the right posterior scalp with erythema. No bleeding or discharge noted. - Respiratory Respiratory exam: Present: CTAB. Absent: rales, rhonchi, wheezes - Cardiovascular Cardiovascular exam: Present: RRR. Absent: gallop, rubs, systolic murmur - GI/Abdominal GI/Abdominal exam: Present: normal bowel sounds, soft. Absent: distended, tenderness - Extremities Exam Extremities exam: Present: pedal edema (1+, improved), warm. Absent: tenderness Internal Medicine: Result - Labs CBC & Chem 7: 02/14/17 04:36 02/14/17 04:36 Labs: Short CBC 02/14/17 Range/Units 04:36 WBC 13.7 H (4.3-11.1) K/mcL Hgb 9.6 L D (12.9-16.9) g/dL Hct 29.8 L (37.5-50.1) % Plt Count 339 (140-400) K/mcL Neutrophils # 10.1 H (1.6-8.9) K/mcL BMP 02/14/17 04:36 Sodium 137 Potassium 3.7 Chloride 102 Carbon Dioxide 27 BUN 20 Creatinine 0.71 L Glucose 108 H Calcium 8.3 L - ABG Interpretation ABG results: PT/INR, D-dimer PT 24.3 Seconds (9.4-12.1) H 02/14/17 04:36 Consult Discharge Plan - Plan Referrals: Cisco Sprague DO [Primary Care Provider] - <Dutch Villa - Last Filed: 02/14/17 16:24> Date of Encounter: 02/14/17 - Constitutional Vitals: Temp Pulse Resp BP Pulse Ox 98.1 F 100 16 92/61 100 02/14/17 15:25 02/14/17 15:25 02/14/17 15:25 02/14/17 15:25 02/14/17 15:25 Internal Medicine: Result - Labs CBC & Chem 7: 02/14/17 04:36 02/14/17 04:36 Labs: Short CBC 02/14/17 Range/Units 04:36 WBC 13.7 H (4.3-11.1) K/mcL Hgb 9.6 L D (12.9-16.9) g/dL Hct 29.8 L (37.5-50.1) % Plt Count 339 (140-400) K/mcL Neutrophils # 10.1 H (1.6-8.9) K/mcL BMP 02/14/17 04:36 Sodium 137 Potassium 3.7 Chloride 102 Carbon Dioxide 27 BUN 20 Creatinine 0.71 L Glucose 108 H Calcium 8.3 L - ABG Interpretation ABG results: PT/INR, D-dimer PT 24.3 Seconds (9.4-12.1) H 02/14/17 04:36 - Attending Attestation I examined this patient and my medical decision-making was reviewed with the BUSINESS LIBRARIAN/PA/Advanced Practice Nurse/Resident Physician. I agree with the documented findings, disposition and treatment plan as described except to the extent set forth below.
[2017-02-15] MEDS: Clindamycin 600 MG/50 ML 600 MG/50 ML IV.SOLN IVPB SCH ×3 (00:20→16:20)
[2017-02-15 00:43] LABS: Bilirubin,Urine Negative (Negative); Blood,Urine Trace (Negative); Clarity,Urine Clear (Clear); Color,Urine Yellow (Yellow); Glucose,Urine (UA) Normal (Normal); Ketones,Urine Negative (Negative); Leukocyte Esterase,Urine Negative (Negative); Nitrite,Urine Negative (Negative); PH,Urine 5.5 pH Units (5.0-8.0); Protein,Urine Trace mg/dL (Neg-Trace); Specific Gravity,Urine 1.024 (1.010-1.025); Urobilinogen,Urine Normal (Normal)
[2017-02-15 00:45] LABS: Bacteria,Urine None Seen per hpf (None-Few); Hyaline Casts,Urine None Seen per lpf (None-Few); RBC,Urine 0-3 per hpf (0-3); Squamous Epithelial Cell,Urine Moderate per lpf (None-Few); WBC,Urine 0-3 per hpf (0-3)
[2017-02-15] MEDS: *HR* OxyCODONE/APAP 5/325 TABLET PO PRN ×4 (02:14→22:53)
[2017-02-15 08:12] LABS: BUN/Creatinine Ratio 26 (6-26); Blood Urea Nitrogen 19 mg/dL (8-26); Calcium 9.1 mg/dL (8.6-10.8); Carbon Dioxide 24 mEq/L (19-29); Chloride 99 mEq/L (98-109); Glucose 81 mg/dL (70-99); Osmolality,Calculated 281 (280-300); Potassium 3.9 mEq/L (3.5-4.5); Sodium 135 mEq/L (136-145); eGFR For African Americans > 60 (> 60); eGFR For Non-African Americans > 60 (> 60)
[2017-02-15 08:16] LABS: Basophils # 0.1 K/mcL (0.0-0.2); Basophils % 0.6 %; Eosinophils # 0.2 K/mcL (0.0-0.6); Immature Granulocytes % 0.7 % (0-4); Lymphocytes # 2.5 K/mcL (0.6-4.6); Mean Corpuscular HGB Conc 30.8 g/dL (31.6-35.5); Mean Corpuscular Hemoglobin 28.6 pg (28.0-33.3); Monocytes # 1.2 K/mcL (0.0-1.3); Monocytes % 9.5 %; Nucleated Red Blood Cells 0.2 /100 WBC (0); Platelet Count 425 K/mcL (140-400); Red Blood Count 3.98 M/mcL (4.19-5.50); Red Cell Distribution Width 14.8 % (11.5-14.5); Segmented Neutrophils % 66.2 %
[2017-02-15] MEDS: APIXABAN 5 MG TABLET PO SCH ×2 (08:21→20:15)
[2017-02-15] MEDS: Famotidine 20 MG TABLET PO SCH ×2 (08:22→20:15)
[2017-02-15] MEDS: Furosemide 40 MG/4 ML VIAL IVP SCH ×2 (08:23→16:20)
[2017-02-15] MEDS: Nicotine 21 MG PATCH.TD24 TD SCH (08:26)
[2017-02-15] MEDS: Lidocaine OINT 35.44 GM TUBE TP PRN ×2 (08:30→20:16)
[2017-02-15] MEDS: Silvasorb 44.4 ML TUBE TP SCH (08:31)
[2017-02-15] MEDS: Neosporin OINT 15 GM TUBE TP SCH ×2 (08:32→20:17)
[2017-02-15 08:37] LABS: Hemoglobin 11.4 g/dL (12.9-16.9)
[2017-02-15] MEDS ORDERED: Saline Nasal Spray 44 ML BOTTLE NS SCH (09:00)
--- NOTE | 2017-02-15 09:03 | Internal Med Progress Note ---
<Reggie Cruz - Last Filed: 02/15/17 09:00> Date of Encounter: 02/15/17 Time of Encounter: 09:00 - Assessment and plan (1) Acute combined systolic and diastolic congestive heart failure Current Visit: No Status: Acute Assessment and plan: On chronic. Likely related to noncompliance as the patient reports noncompliance with fluid restriction or salt restriction and drinking a large amount not do. Recent EF was 10-20% with global systolic dysfunction. Heart catheterization in the past that showed no obstructing lesions. Continue with IV diuresis with 80 mg IV Lasix twice a day. Continue medical treatment with Reinier and beta rosalina. Patient is scheduled for cardiac MRI next week and may be a candidate for ICD placement in the near future. Patient may also benefit from evaluation for left ventricular systolic device or cardiac transplantation in the future. (2) Epistaxis Current Visit: Yes Status: Acute Assessment and plan: Patient developed a nosebleed this morning on [place]. This is resolved spontaneously. CT scan of the sinuses revealed no mass or obvious source of bleeding but there did appear to be deviated septum. If patient has recurrent nose bleeding he will likely require transfer to a facility that has ENT as we do not have ENT coverage this weekend. Will give nasal saline spray every 3 times a day to help prevent dry mucous membranes. (3) Pulmonary embolism and infarction Current Visit: No Status: Chronic Assessment and plan: History of. No evidence of active thrombus. Continue Eliquis (4) Tachycardia Current Visit: No Status: Chronic Assessment and plan: Chronic, related to nonischemic cardiomyopathy. Continue beta rosalina. (5) Scalp lesion Current Visit: Yes Status: Chronic Assessment and plan: With postherpetic neuralgia secondary to history of shingles. Patient does have a leukocytosis so there may be a mild skin infection. Continue clindamycin. Continue topical lidocaine for pain relief. Has an appointment to follow-up with dermatology at [facility] the near future. (6) DVT prophylaxis Current Visit: No Status: Acute Assessment and plan: Patient is anticoagulated with Eliquis - Subjective Interval history: Patient seen and examined at bedside. Patient states that he feels ok today. He reports nose bleed this morning that has spontaneously resolved. - Constitutional Vitals: Temp Pulse Resp BP Pulse Ox 97.7 F 102 15 115/75 100 02/15/17 07:32 02/15/17 07:32 02/15/17 07:32 02/15/17 07:32 02/15/17 08:45 General appearance: Present: A&O X 3, no acute distress, answers questions appropriately - Head Additional comments: Palpation of the right posterior scalp with erythema. No bleeding or discharge noted. - Respiratory Respiratory exam: Present: CTAB. Absent: rales, rhonchi, wheezes - Cardiovascular Cardiovascular exam: Present: RRR. Absent: gallop, rubs, systolic murmur - GI/Abdominal GI/Abdominal exam: Present: normal bowel sounds, soft. Absent: distended, tenderness - Extremities Exam Extremities exam: Present: pedal edema (1+), warm. Absent: tenderness - Neurological Exam Neurological exam: Present: alert, CN II-XII intact, oriented X3, no focal deficits Internal Medicine: Result - Labs CBC & Chem 7: 02/15/17 07:40 02/15/17 07:40 Labs: Short CBC 02/15/17 Range/Units 07:40 WBC 12.1 H (4.3-11.1) K/mcL Hgb 11.4 L D (12.9-16.9) g/dL Hct 37.0 L (37.5-50.1) % Plt Count 425 H (140-400) K/mcL Neutrophils # 8.0 (1.6-8.9) K/mcL BMP 02/15/17 07:40 Sodium 135 L Potassium 3.9 Chloride 99 Carbon Dioxide 24 BUN 19 Creatinine 0.73 Glucose 81 Calcium 9.1 Urine 02/15/17 Range/Units 00:35 Urine Color Yellow (Yellow) Urine Clarity Clear (Clear) Urine pH 5.5 (5.0-8.0) pH Units Ur Specific [place] 1.024 (1.010-1.025) Urine Protein Trace (Neg-Trace) mg/dL Urine Glucose (UA) Normal (Normal) mg/dL - ABG Interpretation ABG results: PT/INR, D-dimer PT 24.3 Seconds (9.4-12.1) H 02/14/17 04:36 - Impressions Impressions Sinuses CT 02/15/17 07:29 IMPRESSION: No evidence of sinusitis. D/ / Jossue Ramirez MD / Jossue Ramirez MD Interpreting Provider: Jossue Ramirez MD Consult Discharge Plan - Plan Referrals: Cisco Sprague DO [Primary Care Provider] - <Dutch Villa P - Last Filed: 02/15/17 15:14> Date of Encounter: 02/15/17 - Constitutional Vitals: Temp Pulse Resp BP Pulse Ox 98.3 F 103 14 92/57 97 02/15/17 10:58 02/15/17 10:58 02/15/17 10:58 02/15/17 10:58 02/15/17 10:58 Internal Medicine: Result - Labs CBC & Chem 7: 02/15/17 07:40 02/15/17 07:40 Labs: Short CBC 02/15/17 Range/Units 07:40 WBC 12.1 H (4.3-11.1) K/mcL Hgb 11.4 L D (12.9-16.9) g/dL Hct 37.0 L (37.5-50.1) % Plt Count 425 H (140-400) K/mcL Neutrophils # 8.0 (1.6-8.9) K/mcL BMP 02/15/17 07:40 Sodium 135 L Potassium 3.9 Chloride 99 Carbon Dioxide 24 BUN 19 Creatinine 0.73 Glucose 81 Calcium 9.1 Urine 02/15/17 Range/Units 00:35 Urine Color Yellow (Yellow) Urine Clarity Clear (Clear) Urine pH 5.5 (5.0-8.0) pH Units Ur Specific [place] 1.024 (1.010-1.025) Urine Protein Trace (Neg-Trace) mg/dL Urine Glucose (UA) Normal (Normal) mg/dL - ABG Interpretation ABG results: PT/INR, D-dimer PT 24.3 Seconds (9.4-12.1) H 02/14/17 04:36 - Impressions Impressions Sinuses CT 02/15/17 07:29 IMPRESSION: No evidence of sinusitis. D/ / Jossue Ramirez MD / Jossue Ramirez MD Interpreting Provider: Jossue Ramirez MD - Attending Attestation I examined this patient and my medical decision-making was reviewed with the BACON SKIN LIFTER/PA/Advanced Practice Nurse/Resident Physician. I agree with the documented findings, disposition and treatment plan as described except to the extent set forth below. If this patient gets a persistent epistaxis then he needs to be transferred to tertiary care Center in [facility]
[2017-02-15] MEDS: Saline Nasal Spray 44 ML BOTTLE NS SCH ×2 (16:24→20:16)
[2017-02-16] MEDS: Clindamycin 600 MG/50 ML 600 MG/50 ML IV.SOLN IVPB SCH ×2 (00:21→08:57)
[2017-02-16 03:33] LABS: BUN/Creatinine Ratio 22 (6-26); Blood Urea Nitrogen 15 mg/dL (8-26); Calcium 8.6 mg/dL (8.6-10.8); Carbon Dioxide 25 mEq/L (19-29); Chloride 97 mEq/L (98-109); Glucose 110 mg/dL (70-99); Osmolality,Calculated 279 (280-300); Potassium 3.4 mEq/L (3.5-4.5); Sodium 134 mEq/L (136-145); eGFR For African Americans > 60 (> 60); eGFR For Non-African Americans > 60 (> 60)
[2017-02-16 03:39] LABS: Basophils # 0.1 K/mcL (0.0-0.2); Basophils % 0.5 %; Eosinophils # 0.2 K/mcL (0.0-0.6); Eosinophils % 1.7 %; Hematocrit 32.2 % (37.5-50.1); Hemoglobin 10.2 g/dL (12.9-16.9); Immature Granulocytes % 0.8 % (0-4); Lymphocytes % 14.9 %; Mean Corpuscular HGB Conc 31.7 g/dL (31.6-35.5); Mean Corpuscular Hemoglobin 28.5 pg (28.0-33.3); Mean Corpuscular Volume 89.9 fL (83.0-100.0); Mean Platelet Volume 10.1 fL (9.4-12.4); Monocytes # 1.8 K/mcL (0.0-1.3); Monocytes % 12.9 %; Neutrophils # 9.5 K/mcL (1.6-8.9); Platelet Count 414 K/mcL (140-400); Red Blood Count 3.58 M/mcL (4.19-5.50); Red Cell Distribution Width 14.8 % (11.5-14.5); Segmented Neutrophils % 69.2 %
[2017-02-16] MEDS: *HR* OxyCODONE/APAP 5/325 TABLET PO PRN (05:12)
[2017-02-16 07:44] VITALS: BP 116/65
[2017-02-16] MEDS: Famotidine 20 MG TABLET PO SCH (08:55)
[2017-02-16] MEDS: APIXABAN 5 MG TABLET PO SCH (08:55)
[2017-02-16] MEDS: Furosemide 40 MG/4 ML VIAL IVP SCH (08:55)
[2017-02-16] MEDS: Lidocaine OINT 35.44 GM TUBE TP PRN (08:58)
[2017-02-16] MEDS: Saline Nasal Spray 44 ML BOTTLE NS SCH (08:58)
[2017-02-16] MEDS: Silvasorb 44.4 ML TUBE TP SCH (09:00)
[2017-02-16] MEDS: Neosporin OINT 15 GM TUBE TP SCH (09:01)
[2017-02-16] MEDS: Nicotine 21 MG PATCH.TD24 TD SCH (09:01)
--- NOTE | 2017-02-16 09:08 | Internal Med Progress Note ---
<Reggie Cruz - Last Filed: 02/16/17 09:06> Date of Encounter: 02/16/17 Time of Encounter: 09:06 - Assessment and plan (1) Acute combined systolic and diastolic congestive heart failure Status: Acute Assessment and plan: On chronic. Likely related to noncompliance as the patient reports noncompliance with fluid restriction or salt restriction and drinking a large amount not do. Recent EF was 10-20% with global systolic dysfunction. Heart catheterization in the past that showed no obstructing lesions. Continue with IV diuresis with 80 mg IV Lasix twice a day, will add Zaroxolyn 5 mg to encourage further diuresis. Continue medical treatment with Reinier and beta rosalina. Patient is scheduled for cardiac MRI next week and may be a candidate for ICD placement in the near future. Patient may also benefit from evaluation for left ventricular systolic device or cardiac transplantation in the future. (2) Epistaxis Status: Acute Assessment and plan: No bleeding since yesterday. Patient developed a nosebleed yesterday on Eliquis. This is resolved spontaneously. CT scan of the sinuses revealed no mass or obvious source of bleeding but there did appear to be deviated septum. If patient has recurrent nose bleeding he will likely require transfer to a facility that has ENT as we do not have ENT coverage this weekend. Continue nasal saline spray 3 times a day to help prevent dry mucous membranes. (3) Pulmonary embolism and infarction Status: Chronic Assessment and plan: History of. No evidence of active thrombus. Continue Eliquis (4) Tachycardia Status: Chronic Assessment and plan: Chronic, related to nonischemic cardiomyopathy. Continue beta rosalina. (5) Scalp lesion Status: Chronic Assessment and plan: With postherpetic neuralgia secondary to history of shingles. Patient does have a leukocytosis so there may be a mild skin infection. Continue clindamycin. Continue topical lidocaine for pain relief. Has an appointment to follow-up with dermatology at [facility] the near future. (6) DVT prophylaxis Status: Acute Assessment and plan: Patient is anticoagulated with Eliquis - Subjective Interval history: Patient seen and examined at bedside. Patient states that he feels ok today. He denies any bleeding after a spontaneous nosebleed yesterday. - Constitutional Vitals: Temp Pulse Resp BP Pulse Ox 98.9 F 112 16 116/65 99 02/16/17 07:41 02/16/17 07:41 02/16/17 07:41 02/16/17 07:41 02/16/17 07:41 General appearance: Present: A&O X 3, no acute distress, answers questions appropriately - Head Additional comments: Palpation of the right posterior scalp with erythema. No bleeding or discharge noted. - Respiratory Respiratory exam: Present: CTAB. Absent: rales, rhonchi, wheezes - Cardiovascular Cardiovascular exam: Present: RRR. Absent: gallop, rubs, systolic murmur - GI/Abdominal GI/Abdominal exam: Present: normal bowel sounds, soft. Absent: distended, tenderness - Extremities Exam Extremities exam: Present: pedal edema (1+, unchanged from yesterday), warm. Absent: tenderness Internal Medicine: Result - Labs CBC & Chem 7: 02/16/17 02:49 02/16/17 02:49 Labs: Short CBC 02/16/17 Range/Units 02:49 WBC 13.7 H (4.3-11.1) K/mcL Hgb 10.2 L (12.9-16.9) g/dL Hct 32.2 L (37.5-50.1) % Plt Count 414 H (140-400) K/mcL Neutrophils # 9.5 H (1.6-8.9) K/mcL BMP 02/16/17 02:49 Sodium 134 L Potassium 3.4 L Chloride 97 L Carbon Dioxide 25 BUN 15 Creatinine 0.68 L Glucose 110 H Calcium 8.6 - ABG Interpretation ABG results: PT/INR, D-dimer PT 24.3 Seconds (9.4-12.1) H 02/14/17 04:36 Consult Discharge Plan - Plan Instructions: Furosemide (By mouth), Oxycodone/Acetaminophen (By mouth), Heart Failure (DC) Additional Instructions: Please follow-up with your primary care physician within one week. Please follow up with your electric wirer as scheduled. Please increase your Lasix to 60 mg twice a day. Please limit her fluid intake to 1.5 L daily and uses little salt as possible. Please return for any new or worsening symptoms. Referrals: Cisco Sprague DO [Primary Care Provider] - (Please call primary care physician and schedule appointment within 1 week) Alexis Talbot DO [Partnered Physician] - (As scheduled) Prescriptions: Furosemide [Lasix] 60 mg PO BID #60 tab <Dutch Villa P - Last Filed: 02/16/17 15:25> Date of Encounter: 02/16/17 - Constitutional Vitals: Temp Pulse Resp BP Pulse Ox 98.9 F 112 16 116/65 99 02/16/17 07:41 02/16/17 07:41 02/16/17 07:41 02/16/17 07:41 02/16/17 07:41 Internal Medicine: Result - Labs CBC & Chem 7: 02/16/17 02:49 02/16/17 02:49 Labs: Short CBC 02/16/17 Range/Units 02:49 WBC 13.7 H (4.3-11.1) K/mcL Hgb 10.2 L (12.9-16.9) g/dL Hct 32.2 L (37.5-50.1) % Plt Count 414 H (140-400) K/mcL Neutrophils # 9.5 H (1.6-8.9) K/mcL BMP 02/16/17 02:49 Sodium 134 L Potassium 3.4 L Chloride 97 L Carbon Dioxide 25 BUN 15 Creatinine 0.68 L Glucose 110 H Calcium 8.6 - ABG Interpretation ABG results: PT/INR, D-dimer PT 24.3 Seconds (9.4-12.1) H 02/14/17 04:36 - Attending Attestation I examined this patient and my medical decision-making was reviewed with the MANAGEMENT PROFESSIONALS/PA/Advanced Practice Nurse/Resident Physician. I agree with the documented findings, disposition and treatment plan as described except to the extent set forth below. I have informed BRIDGE LEVERMAN Jalyn regarding discharge of this patient. patient has appointment with his electric wirer, Dr. Talbot on coming Friday.
[2017-02-16] MEDS ORDERED: metOLazone 5 MG TABLET PO SCH (09:15)
--- NOTE | 2017-02-16 09:22 | Discharge Summary ---
<Reggie Cruz - Last Filed: 02/16/17 09:19> Date of Encounter: 02/16/17 Time of Encounter: 09:19 - Discharge Diagnosis (1) Acute combined systolic and diastolic congestive heart failure Priority: Primary Status: Acute (2) Epistaxis Priority: Primary Status: Resolved (3) Pulmonary embolism and infarction Priority: Secondary Status: Chronic (4) Tachycardia Priority: Secondary Status: Chronic (5) Scalp lesion Priority: Secondary Status: Chronic (6) DVT prophylaxis Priority: Secondary Status: Acute - Discharge Medications Prescriptions: Furosemide [Lasix] 60 mg PO BID #60 tab Home Medications: Gabapentin [Neurontin] 600 mg PO TID 07/17/16 [History] Potassium Chloride [K-Tab ER] 10 meq PO DAILY #20 tablet.er 08/13/16 [Rx] Apixaban [Eliquis] 5 mg PO BID 12/21/16 [History] Lisinopril 2.5 mg PO DAILY 12/25/16 [History] Carvedilol [Coreg] 6.25 mg PO BIDWM 02/12/17 [History] Furosemide [Lasix] 60 mg PO BID #60 tab 02/16/17 [Rx] Allergies/Adverse Reactions: Allergies Penicillins Allergy (Verified 02/03/17 08:16) Anaphylaxis SWELLING Procedures/tests Complete & Pending: Procedures Performed prior 72 hours Category Date Time Status CT sinus wo con [CT] Routine Cat Scan 02/15/17 07:29 Completed Date of admission: 02/12/17 22:58 Primary care physician: Cisco Sprague DO Consults: 02/12/17 23:01 Consult to Nurse Navigator [CONS] Routine Comment: 02/12/17 23:03 Consult to Wound Care [CONS] Routine Reason for Consult: scalp wound Call Completed: No 02/12/17 23:05 Consult to Dermatology [CONS] Routine Consulting Provider: [facility] Reason for Consult: scalp lesion Call Completed: No Discharging clinician: Reggie Cruz Anticipated date of discharge: 02/16/17 - Patient Status Disposition: Home, Self-Care Condition: Fair Functional capacity at discharge: independent ambulation Overall status at discharge: patient is progressing back to baseline - Discharge Instructions Instructions: Furosemide (By mouth), Oxycodone/Acetaminophen (By mouth), Heart Failure (DC) Follow Up With: Cisco Sprague DO [Primary Care Provider] - (Please call primary care physician and schedule appointment within 1 week) Alexis Talbot DO [Partnered Physician] - (As scheduled) Additional Instructions: Please follow-up with your primary care physician within one week. Please follow up with your emt driver as scheduled. Please increase your Lasix to 60 mg twice a day. Please limit her fluid intake to 1.5 L daily and uses little salt as possible. Please return for any new or worsening symptoms. - Diet and Activity Activity: increase activity as tolerated Diet: low fat, low cholesterol, low salt diet Interval History: Patient seen and examined at bedside. Patient states that the feels pretty good today. Patient has no complaints. Hospital course: Mr. Welch is a 36 year old male with history of nonischemic cardiomyopathy and pulmonary embolism presented with increased lower extremity swelling and shortness of breath. Patient has a severely depressed EF estimated to be taken between 10-20%. Patient was not compliant with his diet regimen at home and became fluid overloaded. The patient was admitted for aggressive diuresis. The patient diuresed well but then his diuresis leveled off and still had some lower extremity edema. One dose of metolazone was given on the day of discharge. He was recommended to the patient that he stay to be monitored after this medication but the patient was adamant that he wished to go home. The patient will be discharged home in stable condition and the patient has a follow-up appointment on Friday with his emt driver. - Time Spent with Patient Total time spent providing and/or coordinating discharge services: - Constitutional Vitals: Temp Pulse Resp BP Pulse Ox 98.9 F 112 16 116/65 99 02/16/17 07:41 02/16/17 07:41 02/16/17 07:41 02/16/17 07:41 02/16/17 07:41 General appearance: Present: A&O X 3, no acute distress, answers questions appropriately - Head Additional comments: Palpation of the right posterior scalp with erythema. No bleeding or discharge noted. - Respiratory Respiratory exam: Present: CTAB. Absent: rales, rhonchi, wheezes - Cardiovascular Cardiovascular exam: Present: RRR. Absent: gallop, rubs, systolic murmur - GI/Abdominal GI/Abdominal exam: Present: normal bowel sounds, soft. Absent: distended, tenderness - Extremities Exam Extremities exam: Present: pedal edema (1+, unchanged from yesterday), warm. Absent: tenderness - Neurological Exam Neurological exam: Present: alert, CN II-XII intact, oriented X3, no focal deficits <Dutch Villa P - Last Filed: 02/16/17 15:25> Date of Encounter: 02/16/17 Procedures/tests Complete & Pending: Procedures Performed prior 72 hours Category Date Time Status CT sinus wo con [CT] Routine Cat Scan 02/15/17 07:29 Completed Date of admission: 02/12/17 22:58 Primary care physician: Cisco Sprague DO Consults: 02/12/17 23:01 Consult to Nurse Navigator [CONS] Routine Comment: 02/12/17 23:03 Consult to Wound Care [CONS] Routine Reason for Consult: scalp wound Call Completed: No 02/12/17 23:05 Consult to Dermatology [CONS] Routine Consulting Provider: [facility] Reason for Consult: scalp lesion Call Completed: No Hospital course: Mr. Welch is a 36 year old male - Time Spent with Patient Total time spent providing and/or coordinating discharge services: - Constitutional Vitals: Temp Pulse Resp BP Pulse Ox 98.9 F 112 16 116/65 99 02/16/17 07:41 02/16/17 07:41 02/16/17 07:41 02/16/17 07:41 02/16/17 07:41 - Attending Attestation I examined this patient and my medical decision-making was reviewed with the OFFSET PRESS ASSISTANT/PA/Advanced Practice Nurse/Resident Physician. I agree with the documented findings, disposition and treatment plan as described except to the extent set forth below.
== END 2017-02-16 11:03 | disposition home or self-care (01) | DRG 194 ==
LOC: EMEROO 19:18 → 3BNU 19:18
PROVIDERS: ADMIT Family Medicine; ATTEND Registered Nurse

== ENCOUNTER 2017-03-14 14:54 | Observation (INO) ==
[2017-03-14] MEDS ORDERED: *HR* OxyCODONE/APAP 5/325 TABLET PO ONE ×2 (16:23→19:29)
--- NOTE | 2017-03-14 16:28 | Emergency Department Note ---
Disposition Clinical Impression: Dilated cardiomyopathy Fluid overload Qualifiers: Hypervolemia type: unspecified Qualified Code(s): E87.70 - Fluid overload, unspecified Disposition: Admitted As Inpatient Condition: Fair Referrals: NO,PCP [Primary Care Provider] - Forms: ED Satisfaction Letter Time of Disposition: 19:07 General Adult HPI - General Chief complaint: ED Shortness of Breath/Dyspnea Stated complaint: MICH, chest pain Time Seen by Provider: 03/14/17 16:16 Source: patient Mode of arrival: ambulatory Limitations: no limitations Nursing Notes Reviewed: Yes Vital Signs Reviewed: Yes - History of Present Illness HPI Narrative: 36-year-old male with a history CHF twice in the past comes in complaining of chest pain. Patient has an area on his scalp that is thought to be postherpetic. He states he's been having chest pain today. I did review an MRI at of his heart that shows an EF 19% is in the process of obtaining a defibrillator. Patient does state he gets lightheaded and feels like he is going to pass out . Pt Subjective Complaint: Chest pain lightheaded Onset (ago): hour(s) Location: chest Radiation: non-radiation Pain Scale: 10 Improves with: nothing Worsens with: nothing Associated symptoms: Reports: chest pain, other (Near syncope) - Related Data Home Medications Medication Instructions Recorded Confirmed Gabapentin [Neurontin] 600 mg PO TID 07/17/16 03/02/17 Apixaban [Eliquis] 5 mg PO BID 12/21/16 03/02/17 Lisinopril 2.5 mg PO DAILY 12/25/16 03/02/17 Carvedilol [Coreg] 6.25 mg PO BIDWM 02/12/17 03/02/17 Previous Rx's Medication Instructions Recorded Potassium Chloride [K-Tab ER] 10 meq PO DAILY #20 tablet.er 08/13/16 Furosemide [Lasix] 60 mg PO BID #60 tab 02/16/17 Acyclovir [Zovirax] 800 mg PO 5XD #30 tablet 03/02/17 Naproxen [Naprosyn] 500 mg PO BID #20 tablet 03/02/17 cephALEXin [Keflex] 500 mg PO QID #40 capsule 03/02/17 OxyCODONE/APAP 5/325 [Percocet 1 each PO Q6HR PRN #12 tablet 03/04/17 5/325 MG] Allergies Allergy/AdvReac Type Severity Reaction Status Date / Time Penicillins Allergy Anaphylaxis Verified 02/24/17 13:16 All systems ED: reviewed and negative except as stated. Constitutional: Denies: fever, chills, weakness, weight change Eyes: Denies: eye pain, eye discharge, vision change ENT ED: Denies: ear pain, throat pain, dental pain, hearing loss, epistaxis, congestion, dysphagia Cardiovascular: Reports: chest pain. Denies: palpitations, dyspnea on exertion , edema, syncope Respiratory: Denies: cough, dyspnea, wheezes, hemoptysis, stridor Gastrointestinal: Denies: abdominal pain, nausea, vomiting, diarrhea, constipation, hematemesis, melena, hematochezia Genitourinary: Denies: urgency, dysuria, frequency, hematuria Musculoskeletal: Denies: back pain, neck pain, arthralgia, myalgia Integumentary: Denies: rash, abrasion, lesions Neurological: Denies: headache, weakness, numbness, paresthesias, confusion, abnormal gait, vertigo Psychiatric: Denies: anxiety, depression, suicidal thoughts, homicidal thoughts , auditory hallucinations, visual hallucinations Endocrine: Denies: fatigue Hematological/Lymphatic: Denies: easy bleeding, easy bruising Allergic/Immunologic: Denies: facial swelling, urticaria Past Medical History - Past Medical History Medical history: Reports: CHF, DVT, hyperlipidemia, hypertension, pulmonary embolus Surgical history: Reports: no surgical history, other ([facility] - 12/2016 - minimal CAD) Psychiatric history: Reports: anxiety, depression - Social History Smoking Status: Current every day smoker Smokeless Tobacco Status: No Alcohol use: Reports: none Drug use: Reports: marijuana Physical Exam - General Limitations: no limitations General appearance: alert, in no apparent distress - Head Head exam: atraumatic, normocephalic, normal inspection - Eye Eye exam: Present: normal appearance, PERRL, EOMI - ENT ENT exam: normal exam, normal oropharynx, mucous membranes moist - Neck Neck exam: Present: normal inspection, full ROM, trachea midline - Back Exam Back exam: Present: normal inspection, full ROM. Absent: tenderness - Neurological Exam Neurological exam: Present: alert, oriented X3 - Psychiatric Psychiatric exam: Present: normal affect, normal mood - Skin Skin exam: Present: warm, dry, intact, normal color Course - Reevaluation(s) Reevaluation #1: 36-year-old with dilated cardiomyopathy with EF of 19% comes in with shortness of breath chest pain workup indicates she has a fluid overload. Patient with cardiology resident admit diuresis consideration for a defibrillator. Time: 19:06 - Consultations Consultation #1: Discussed with Dr. Kendrick, admit. Time: 18:38 Consultation #2: Discussed with , admit. Time: 19:06 Vital Signs Temperature 97.6 F 03/14/17 15:11 Pulse Rate 104 03/14/17 15:11 Respiratory Rate 20 03/14/17 15:11 Blood Pressure 100/65 03/14/17 15:11 O2 Sat by Pulse Oximetry 99 03/14/17 15:11 Temperature 97.6 F 03/14/17 15:11 Pulse Rate 104 03/14/17 15:11 Respiratory Rate 20 03/14/17 15:11 Blood Pressure 100/65 03/14/17 15:11 O2 Sat by Pulse Oximetry 99 03/14/17 15:11 Oxygen Delivery Oxygen Delivery Room Air Medical Decision Making - Lab Data Result diagrams: 03/14/17 16:26 03/14/17 16:26 Lab Results 03/14/17 03/14/17 03/14/17 Range/Units 16:26 16:26 16:26 WBC 13.7 H (4.3-11.1) K/mcL RBC 3.72 L (4.19-5.50) M/mcL Hgb 10.3 L (12.9-16.9) g/dL Hct 32.4 L (37.5-50.1) % MCV 87.1 (83.0-100.0) fL MCH 27.7 L (28.0-33.3) pg MCHC 31.8 (31.6-35.5) g/dL RDW 15.8 H (11.5-14.5) % Plt Count 436 H (140-400) K/mcL MPV 9.3 L (9.4-12.4) fL Immature Gran % 0.8 (0-4) % Seg Neutrophils % 66.7 % Lymphocytes % 18.0 % Monocytes % 12.6 % Eosinophils % 1.5 % Basophils % 0.4 % Neutrophils # 9.1 H (1.6-8.9) K/mcL Lymphocytes # 2.5 (0.6-4.6) K/mcL Monocytes # 1.7 H (0.0-1.3) K/mcL Eosinophils # 0.2 (0.0-0.6) K/mcL Basophils # 0.1 (0.0-0.2) K/mcL PT 26.3 H (9.4-12.1) Seconds INR 2.4 APTT 35.5 (26.0-36.0) Seconds D-Dimer (0-500) ng/mLFEU Sodium 134 L (136-145) mEq/L Potassium 3.4 L (3.5-4.5) mEq/L Chloride 102 (98-109) mEq/L Carbon Dioxide 25 (19-29) mEq/L BUN 11 (8-26) mg/dL Creatinine 0.62 L (0.72-1.25) mg/dL Est GFR ( Amer) > 60 (> 60) Est GFR (Non-Af Amer) > 60 (> 60) BUN/Creatinine Ratio 18 (6-26) Glucose 101 H (70-99) mg/dL Calculated Osmolality 278 L (280-300) Calcium 8.3 L (8.6-10.8) mg/dL Troponin I (0-0.03) ng/mL B-Natriuretic Peptide (0-100) pg/mL 03/14/17 03/14/17 03/14/17 Range/Units 16:26 16:26 16:26 WBC (4.3-11.1) K/mcL RBC (4.19-5.50) M/mcL Hgb (12.9-16.9) g/dL Hct (37.5-50.1) % MCV (83.0-100.0) fL MCH (28.0-33.3) pg MCHC (31.6-35.5) g/dL RDW (11.5-14.5) % Plt Count (140-400) K/mcL MPV (9.4-12.4) fL Immature Gran % (0-4) % Seg Neutrophils % % Lymphocytes % % Monocytes % % Eosinophils % % Basophils % % Neutrophils # (1.6-8.9) K/mcL Lymphocytes # (0.6-4.6) K/mcL Monocytes # (0.0-1.3) K/mcL Eosinophils # (0.0-0.6) K/mcL Basophils # (0.0-0.2) K/mcL PT (9.4-12.1) Seconds INR APTT (26.0-36.0) Seconds D-Dimer 256 (0-500) ng/mLFEU Sodium (136-145) mEq/L Potassium (3.5-4.5) mEq/L Chloride (98-109) mEq/L Carbon Dioxide (19-29) mEq/L BUN (8-26) mg/dL Creatinine (0.72-1.25) mg/dL Est GFR ( Amer) (> 60) Est GFR (Non-Af Amer) (> 60) BUN/Creatinine Ratio (6-26) Glucose (70-99) mg/dL Calculated Osmolality (280-300) Calcium (8.6-10.8) mg/dL Troponin I 0.00 (0-0.03) ng/mL B-Natriuretic Peptide 1787 H (0-100) pg/mL
[2017-03-14 16:34] LABS: Basophils # 0.1 K/mcL (0.0-0.2); Basophils % 0.4 %; Eosinophils # 0.2 K/mcL (0.0-0.6); Eosinophils % 1.5 %; Hematocrit 32.4 % (37.5-50.1); Hemoglobin 10.3 g/dL (12.9-16.9); Immature Granulocytes % 0.8 % (0-4); Lymphocytes # 2.5 K/mcL (0.6-4.6); Mean Corpuscular HGB Conc 31.8 g/dL (31.6-35.5); Mean Corpuscular Hemoglobin 27.7 pg (28.0-33.3); Mean Corpuscular Volume 87.1 fL (83.0-100.0); Mean Platelet Volume 9.3 fL (9.4-12.4); Monocytes # 1.7 K/mcL (0.0-1.3); Monocytes % 12.6 %; Neutrophils # 9.1 K/mcL (1.6-8.9); Platelet Count 436 K/mcL (140-400); Red Blood Count 3.72 M/mcL (4.19-5.50); Red Cell Distribution Width 15.8 % (11.5-14.5); Segmented Neutrophils % 66.7 %
[2017-03-14 16:41] LABS: INR 2.4; Prothrombin Time 26.3 Seconds (9.4-12.1)
[2017-03-14 16:44] LABS: Activated Partial Thrombo Time 35.5 Seconds (26.0-36.0); BUN/Creatinine Ratio 18 (6-26); Blood Urea Nitrogen 11 mg/dL (8-26); Calcium 8.3 mg/dL (8.6-10.8); Carbon Dioxide 25 mEq/L (19-29); Chloride 102 mEq/L (98-109); Glucose 101 mg/dL (70-99); Osmolality,Calculated 278 (280-300); Potassium 3.4 mEq/L (3.5-4.5); Sodium 134 mEq/L (136-145); eGFR For African Americans > 60 (> 60); eGFR For Non-African Americans > 60 (> 60)
[2017-03-14] MEDS ORDERED: Furosemide 40 MG/4 ML VIAL IVP ONE (18:34)
[2017-03-14] MEDS ORDERED: Naloxone 0.4 MG/ML INJ IVP PRN (22:12)
--- NOTE | 2017-03-14 22:15 | Internal Med History&Physical ---
Date of Encounter: 03/15/17 Time of Encounter: 22:15 Assessment and Plan (1) Intractable pain Current visit: Yes Status: Acute related to his scalp, reports that the pain then radiates to his chest, will try lyrica, he says that neurontin dulls the pain but does not make it go away but percocet takes the pain away so he came to the ER because he run out, will add PRN oxycodone (2) Hypokalemia Current visit: Yes Status: Acute may be related to his diuretics, he reports doubling the medication recently when he noticed leg swelling (3) Scalp bruising Current visit: Yes Status: Chronic started out as Herpes Zoster per patient now eroded the whole hair with continued pain, this is most likely the reason why he came in to get pain medications, 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 Qualifiers: Encounter type: initial encounter Qualified Code(s): S00.03XA - Contusion of scalp, initial encounter (4) Non-ischemic cardiomyopathy Current visit: Yes Status: Chronic EF is 19% and is being planned for AICD placement, clean coronaries per cath this year, will continue poe failure meds, currently euvolumic (5) HTN (hypertension) Current visit: Yes Status: Chronic will continue home medications Qualifiers: Hypertension type: essential hypertension Qualified Code(s): I10 - Essential (primary) hypertension (6) Pulmonary emboli Current visit: Yes Status: Chronic diagnosed in 06/2016 and on eliquis which we will continue Qualifiers: Pulmonary embolism type: other Chronicity: chronic Acute cor pulmonale presence: without acute cor pulmonale Qualified Code(s): I27.82 - Chronic pulmonary embolism Internal Medicine - H&P: HPI Chief complaint: intractable pain Admitted From: Emergency Dept Plans for Post Hospital Care: Home History of present illness: Mr. Welch is a 36 year old male with a history of combined CHF systolic and diastolic dysfunction, nonischemic cardiomyopathy EF 19%, tachycardia, scalp lesion with excoriation, history of pulmonary embolus, hypertension, hyperlipidemia and history of DVT. He presented to the ER with scalp rodriguez after he run out of his percote pils prescribed for 30 days by his physicain. He reports that steh pain on the scalp is a 100/10 in severity and is burning in character and he seems to radiate to his chest at the peak of the pain. He denies any associated diaphoresis, feeling of apprehension but says that he is easily fatigued, has leg swelling that is improving. He also complains of feeling lightheaded with exertion as well as dyspnea on exertion. He cam to the ER hoping to get more prescription percocet for his scalp pain and he was admitted. Past Med Surg Social Fam HX - Past Medical History Medical history: CHF, DVT, hyperlipidemia, hypertension, pulmonary embolus Psychiatric history: anxiety, depression - Past Surgical History Surgical History: other - Social History Smoking Status: Current every day smoker Packs per day: 1 Smokeless Tobacco Status: No Alcohol use: none Drug use: none - Family History Mother Family Member Ethnicity: Non- Living Status: Still Living Hx Family Cardiac Disorders: No Hx Family Respiratory Disorders: No Hx Family Cancer: Yes Hx Family GI Disorders: No Hx Family Endocrine Disorder: No Hx Family Neuromuscular Disorders: No Hx Family Neurologic Disorders: No Hx Family HEENT Disorders: No Internal Medicine - H&P: Meds Gabapentin [Neurontin] 600 mg PO TID 07/17/16 [History] Apixaban [Eliquis] 5 mg PO BID 12/21/16 [History] Lisinopril 2.5 mg PO DAILY 12/25/16 [History] Carvedilol 3.125 mg PO BID 03/14/17 [History] Furosemide [Lasix] 80 mg PO DAILY 03/14/17 [History] Lidocaine [Lidocaine] 1 appl TP QID 03/14/17 [History] Naproxen [Naprosyn] 500 mg PO BID 03/14/17 [History] Potassium Chloride 20 meq PO DAILY 03/14/17 [History] Allergies Penicillins Allergy (Verified 02/24/17 13:16) Anaphylaxis SWELLING All Systems PM: A 10-system review of systems was performed and is negative for pertinent findings except as documented above in the HPI. - Constitutional Vitals: Temp Pulse Resp BP Pulse Ox 98.1 F 103 20 111/71 100 03/14/17 21:04 03/14/17 21:04 03/14/17 21:04 03/14/17 21:04 03/14/17 21:04 GENERAL: Adult male, walking around the room eating, Alert, not in acute distress, HEENT: NC/AT, EOMI, PERRLA, anicteric sclera, normal conjunctiva, supple, clear nares, moist mucous membranes, clear oropharynx, central uvula RESP: Lungs are clear to auscultation bilaterally, good AE bilaterally, No crackles or wheeze CARDIO: Normal hearts sounds; S1 and 2, RRR with no murmurs, no JVD, no ankle edema GI: Soft, full, no tenderness, no organomegaly felt, normal bowel sounds heard MUSCULOSKELETAL: grossly normal movements bilaterally, no deformities noted, no calf tenderness NEUROLOGIC: CN 2-12 intact grossly. No gross motor/sensory deficit appreciated, PSYCHIATRY: AAO x 3. Mood is fair, SKIN: tattoos noted, huge scalp ulcer noted on the right side Internal Med - H&P Results - Labs CBC & Chem 7: 03/14/17 16:26 03/14/17 16:26 - EKG Data -: EKG Interpreted by Myself EKG shows normal: sinus rhythm Rate: tachycardia - Diagnostic Studies Chest x-ray Status: image reviewed by me
[2017-03-14] MEDS: *HR* OxyCODONE Immed Rel 5 MG TABLET PO PRN (22:41)
[2017-03-14] MEDS: Pregabalin 50 MG CAPSULE PO SCH (22:42)
[2017-03-14] MEDS: APIXABAN 5 MG TABLET PO SCH (22:42)
[2017-03-14] MEDS: Lidocaine OINT 35.44 GM TUBE TP SCH (23:31)
[2017-03-15 05:54] LABS: BUN/Creatinine Ratio 20 (6-26); Blood Urea Nitrogen 14 mg/dL (8-26); Calcium 8.3 mg/dL (8.6-10.8); Carbon Dioxide 27 mEq/L (19-29); Chloride 102 mEq/L (98-109); Glucose 94 mg/dL (70-99); Magnesium 1.9 mg/dL (1.6-2.6); Osmolality,Calculated 284 (280-300); Phosphorous 3.5 mg/dL (2.3-4.7); Sodium 137 mEq/L (136-145); eGFR For African Americans > 60 (> 60); eGFR For Non-African Americans > 60 (> 60)
[2017-03-15] MEDS: APIXABAN 5 MG TABLET PO SCH (07:39)
[2017-03-15] MEDS: Pregabalin 50 MG CAPSULE PO SCH ×2 (07:39→14:39)
[2017-03-15] MEDS: *HR* OxyCODONE Immed Rel 5 MG TABLET PO PRN ×2 (07:40→14:40)
[2017-03-15] MEDS: Gabapentin 300 MG CAPSULE PO SCH ×2 (07:40→14:39)
[2017-03-15] MEDS: Lidocaine OINT 35.44 GM TUBE TP SCH ×2 (07:42→14:40)
[2017-03-15] MEDS ORDERED: Furosemide 40 MG TABLET PO SCH (09:00)
[2017-03-15] MEDS ORDERED: Lidocaine TOPICAL Soln 50 ML BOTTLE TP SCH (09:00)
--- NOTE | 2017-03-15 10:49 | Cardiology Consult Note ---
Date of Encounter: 03/15/17 Time of Encounter: 10:00 Assessment and Plan (1) Acute on chronic systolic CHF (congestive heart failure), NYHA class 2 Current Visit: No Status: Acute Per cardiology: -Known chronic systolic CHF. -Admitted with increased shortness of breath and chest pain. -Was given lasix 40mg IV x1 dose in ER, now on home dose of lasix 80mg daily. -No output recorded in i/os, however patient states he has out out urine, unsure of amount. -Reports shortness of breath improved and denies current chest pain. -CHest x-ray with stable cardiomegaly, mild pulmonary vascular congestion. -Weight today 207 pounds, baseline weight 01/22/17 203 pounds. Of note, patient admitted 02/03/17 and weight at that time was 208.8 pounds. -Pedal edema noted. -On beta rosalina and marysol inhibitor. -CHF education reinforced to patient. Patient states he has not been compliant with daily weights and fluid restriction. -Troponin negative. Had chest pain on admission, however states he always has chest pain when he comes in with CHF. -ECG with sinus tachycardia. -BNP 1700s. -Strict i/os, daily weights, and fluid restriction. (2) Non-ischemic cardiomyopathy Current Visit: Yes Status: Chronic Per cardiology: -KNown non-ischemic cardiomyopathy. -LHC 12/24/16 with normal coronary arteries. -Echo with LVEF 20%, severly dilated left ventricle, global LV hypokinesis , mild RV hypokinesis, moderately dilated left atrium, all wall segments hypokinetic. -Cardiac MRI 02/18/17 with Severely dilated left ventricle with severe LV systolic dysfunction, LVEF 19%. There is severe global hypokinesis. Late gadolinium enhancement imaging demonstrates normal myocardium. There is no evidence of myocardial fibrosis. There is no evidence of an LV thrombus. Mildly dilated right ventricle with moderate RV hypokinesis. Severely dilated left atrium. Moderately dilated right atrium. Mild mitral regurgitation. Mild- moderate tricuspid regurgitation. -On beta rosalina and marysol inhibitor. -Unable to titrate medications further due to hypotension. BPs 90-110s systolic. -Patient has follow up scheduled with Dr.John Dominguez 04/02/17 for ICD evaluation. (3) Scalp lesion Current Visit: No Status: Chronic Per cardiology: -Large scalp lesion. -Management per primary service. (4) Tobacco abuse Current Visit: No Status: Chronic Per cardiology: -Reports smoking 0.5ppd for 25 years. -I spent 3 minutes reviewing smoking cessation education with patient. Discussion w patient/family: The assessment and plan as outlined above was discussed with the patient who expressed understanding and agreement. All questions were answered. Thank you for involving us in the care of your patient. Please call with any questions. Discussed and reviewed with . History of Present Illness Consult date: 03/14/17 Requesting physician: Sourav Galloway Consult reason: cardiomyopathy Chief complaint: chest pain, shortness of breath History of present illness: Mr. Welch is a 36 year old male with a relevant past medical history of non- ischemic cardiomyopathy, anxiety, depression, shingles, alopecia, and smoking. Patient presented to [facility] with complaints of chest pain and increased shortness of breath. Patient also states he was having severe pain from his head, where he has a known large lesion. Patient was given one dose if IV lasix in ER. Patient reports shortness of breath has improved since admission. Patient denies current chest pain. Past Med Surg Social Fam HX - Past Medical History Attestation: Yes The following information was validated with the patient. Source: patient Medical history: CHF, DVT, hyperlipidemia, hypertension, pulmonary embolus Psychiatric history: anxiety, depression - Past Surgical History Surgical History: other - Social History Smoking Status: Current every day smoker Packs per day: 1 Smokeless Tobacco Status: No Alcohol use: none Drug use: none - Family History Mother Family Member Ethnicity: Non- Living Status: Still Living Hx Family Cardiac Disorders: No Hx Family Respiratory Disorders: No Hx Family Cancer: Yes Hx Family GI Disorders: No Hx Family Endocrine Disorder: No Hx Family Neuromuscular Disorders: No Hx Family Neurologic Disorders: No Hx Family HEENT Disorders: No Medications and Allergies Gabapentin [Neurontin] 600 mg PO TID 07/17/16 [History] Apixaban [Eliquis] 5 mg PO BID 12/21/16 [History] Lisinopril 2.5 mg PO DAILY 12/25/16 [History] Carvedilol 3.125 mg PO BID 03/14/17 [History] Furosemide [Lasix] 80 mg PO DAILY 03/14/17 [History] Lidocaine [Lidocaine] 1 appl TP QID 03/14/17 [History] Naproxen [Naprosyn] 500 mg PO BID 03/14/17 [History] Potassium Chloride 20 meq PO DAILY 03/14/17 [History] Allergies Penicillins Allergy (Verified 02/24/17 13:16) Anaphylaxis SWELLING All Systems Review: A 10-system review of systems was performed and is negative for pertinent findings except as documented above in the HPI. - Cardiovascular Cardiovascular: as per HPI, chest pain at rest, dyspnea on exertion Physical Examination Vital Signs, Last 4 Hours Temp Pulse Resp BP Pulse Ox 03/15/17 06:56 98.1 F 113 14 119/79 99 General: Conversant, No Apparent Distress, Other (Once aroused by tactile stimuli, conversant. ) HEENT: Mucus Membranes Moist (Large lesion noted to right side of head. ), Other Neck: No JVD, Normal carotid pulses Cardiac: Reg Rate and Rhythm, Normal S1 and S2 Lungs: Normal Breath Sounds, No Wheeze, Rales, Rhonchi Neuro: Other (Lethargic, aroused to tactile stimuli.) Abdomen: Soft, Non-Tender Skin: Other (Large lesion noted to right side of head. ) Musculoskeletal: No Chest Wall Tenderness Extremities: No Clubbing, No Cyanosis, Normal Pulses, Other (Moderate bilateral lower extremity, non-pitting edema. ) Results 03/14/17 16:26 03/15/17 04:56 Lab Results Impressions Chest X-Ray 03/14/17 17:45 IMPRESSION: Stable cardiomegaly. Mild pulmonary vascular congestion. D/ / Fermin Peters MD / Fermin Peters MD Interpreting Provider: Fermin Peters MD Active Medications Apixaban (Eliquis) 5 mg PO BID [facility] Stop: 09/13/17 22:16 Last Admin: 03/15/17 07:39 Dose: 5 mg Carvedilol (Coreg) 3.125 mg PO BID [facility] Stop: 09/13/17 22:16 Last Admin: 03/15/17 07:38 Dose: 3.125 mg Furosemide (Lasix) 80 mg PO DAILY [facility] Stop: 09/14/17 09:01 Last Admin: 03/15/17 07:40 Dose: 80 mg Gabapentin (Neurontin) 600 mg PO TID [facility] Stop: 09/14/17 09:01 Last Admin: 03/15/17 07:40 Dose: 600 mg Lidocaine HCl (Lidocaine Oint) 1 appl TP QID [facility] Stop: 09/13/17 23:01 Last Admin: 03/15/17 07:42 Dose: 1 appl Lisinopril (Zestril) 2.5 mg PO DAILY [facility] Stop: 09/14/17 09:01 Last Admin: 03/15/17 07:37 Dose: 2.5 mg Naloxone HCl (Narcan) 0.4 mg IVP Q2MIN PRN PRN Reason: Opioid Reversal Stop: 09/13/17 22:13 Oxycodone HCl (Roxicodone) 5 mg PO Q6HR PRN PRN Reason: Pain>4 Stop: 09/13/17 22:15 Last Admin: 03/15/17 07:40 Dose: 5 mg Potassium Chloride (Potassium Chloride) 20 meq PO DAILY [facility] Stop: 09/14/17 09:01 Last Admin: 03/15/17 07:39 Dose: 20 meq Pregabalin (Lyrica) 50 mg PO TID [facility] Stop: 09/13/17 22:16 Last Admin: 03/15/17 07:39 Dose: 50 mg Laboratory Tests 02/12/17 02/28/17 03/14/17 19:42 16:46 16:26 WBC 13.7 H Hgb 10.3 L Potassium Creatinine Troponin I B-Natriuretic Peptide 1373 H 1094 H 03/14/17 03/14/17 03/14/17 16:26 16:26 16:26 WBC Hgb Potassium 3.4 L Creatinine Troponin I 0.00 B-Natriuretic Peptide 1787 H 03/15/17 04:56 WBC Hgb Potassium 4.0 Creatinine 0.69 L Troponin I B-Natriuretic Peptide - Imaging and Cardiology Chest Xray: report reviewed Echo: report reviewed Cardiac cath: report reviewed Other Results: Cardiac MRI report reviewed - EKG Interpretation EKG results cardiology: personally reviewed (ECG with sinus tachycardia, HR 105. ), other (Telemetry reviewed with average HR previous 12 hours noted to be 106, sinus tachycardia. PVCS and 3 couplet PVCs noted.) Consult Discharge Plan - Plan Referrals: NO,PCP [Primary Care Provider] -
--- NOTE | 2017-03-15 14:41 | Internal Med Progress Note ---
Date of Encounter: 03/15/17 Time of Encounter: 13:00 - Assessment and plan (1) Intractable pain Current Visit: Yes Status: Acute Assessment and plan: Patient reports intractable pain related to his scalp. He states that it radiates to his chest. He has been placed on Lyrica as well as continuing his gabapentin. Patient states that he ran out of Percocet so he came to the emergency room. He has Percocet every 4 hours as needed for pain greater than 4. (2) Pulmonary emboli Current Visit: Yes Status: Chronic Assessment and plan: Prior history of PE in June,. Continue Eliquis. Qualifiers: Pulmonary embolism type: other Chronicity: chronic Acute cor pulmonale presence: without acute cor pulmonale Qualified Code(s): I27.82 - Chronic pulmonary embolism (3) Non-ischemic cardiomyopathy Current Visit: Yes Status: Chronic Assessment and plan: EF is 19%. HC 12/24/16 with normal coronary arteries. -Echo with LVEF 20%, severly dilated left ventricle, global LV hypokinesis , mild RV hypokinesis, moderately dilated left atrium, all wall segments hypokinetic. -Cardiac MRI 02/18/17 with Severely dilated left ventricle with severe LV systolic dysfunction, LVEF 19%. There is severe global hypokinesis. Late gadolinium enhancement imaging demonstrates normal myocardium. There is no evidence of myocardial fibrosis. There is no evidence of an LV thrombus. Mildly dilated right ventricle with moderate RV hypokinesis. Severely dilated left atrium. Moderately dilated right atrium. Mild mitral regurgitation. Mild- moderate tricuspid regurgitation. -On beta rosalina and marysol inhibitor. -Patient has follow up scheduled with Dr.John Dominguez 04/02/17 for ICD evaluation. (4) HTN (hypertension) Current Visit: Yes Status: Chronic Assessment and plan: Chronic. Continue home medications. Well controlled in inpatient setting. Qualifiers: Hypertension type: essential hypertension Qualified Code(s): I10 - Essential (primary) hypertension (5) Scalp bruising Current Visit: Yes Status: Chronic Assessment and plan: Patient initially states that he had herpes zoster on his scalp, now eroded his whole hair with continued pain. Patient will need to see outpatient dermatology for continued treatment. Qualifiers: Encounter type: initial encounter Qualified Code(s): S00.03XA - Contusion of scalp, initial encounter (6) DVT prophylaxis Current Visit: No Status: Acute Assessment and plan: SCDs. Patient is ambulatory. Patient is on Bogdan requests - Subjective Interval history: Patient was seen and assessed at 1 PM. He was sitting up in the bed eating his meal tray. He has already exceeded his fluid volume limit for the day. I told patient that he was not going to get her fluid on his evening meal tray. He said that he will not be compliant with either a low sodium or a fluid restriction diet and that he will drink out of the faucet in his room if we do not give him fluids. He reports that he has not been adherent to low sodium or fluid restriction diet at home. He also reports that he does not weigh himself as he should. It was mentioned to me by primary nurse that it is suspected that he is smoking in his bathroom. We will continue to monitor. Patient was demanding that Dr. Talbot come over immediately and place his ICD. He is scheduled to see Dahiana in March for possible ICD placement. - Constitutional Vitals: Temp Pulse Resp BP Pulse Ox 98.0 F 108 14 109/65 96 03/15/17 11:08 03/15/17 11:08 03/15/17 11:08 03/15/17 11:08 03/15/17 11:08 General appearance: Present: A&O X 3, no acute distress, answers questions appropriately. Absent: pleasant - Head Head exam: Present: normal inspection - Eye Eye exam: Present: normal appearance, conjuntiva pink - Neck Neck exam general surgery: Present: normal inspection. Absent: lymphadenopathy , tenderness - Cardiovascular Cardiovascular exam: Present: RRR, +S1, +S2. Absent: diastolic murmur, systolic murmur - GI/Abdominal GI/Abdominal exam: Present: soft. Absent: hepatomegaly, tenderness - Extremities Exam Extremities exam: Present: pedal edema, warm, radial pulses palpable and symetrical. Absent: tenderness - Neurological Exam Neurological exam: Present: alert, oriented X3. Absent: facial droop, speech deficit - Skin Skin exam: Present: dry, intact, warm. Absent: rash Internal Medicine: Result - Labs CBC & Chem 7: 03/14/17 16:26 03/15/17 04:56 Labs: BMP 03/15/17 04:56 Sodium 137 Potassium 4.0 Chloride 102 Carbon Dioxide 27 BUN 14 Creatinine 0.69 L Glucose 94 Calcium 8.3 L - ABG Interpretation ABG results: PT/INR, D-dimer PT 26.3 Seconds (9.4-12.1) H 03/14/17 16:26 D-Dimer 256 ng/mLFEU (0-500) 03/14/17 16:26 Consult Discharge Plan - Plan Referrals: NO,PCP [Primary Care Provider] -
[2017-03-15 14:57] VITALS: BP 107/78
[2017-03-15] MEDS ORDERED: Furosemide 40 MG/4 ML VIAL IVP SCH (17:00)
--- NOTE | 2017-03-17 12:49 | Electrocardiograph Report ---
[address] [address] Test Date: 2017-03-14 Pat Name: Isaac Welch Department: 102 Room: 3B46 Gender: M Trauma Surgeon: : 1980 Requested By: Agustín Gates Order Number: [id number] Reading MD: Erik Tamayo MD Measurements Intervals [place] Rate: 105 P: 66 ID: [id number] QRS: 45 QRSD: 108 T: 68 QT: 361 QTc: 422 Interpretive Statements SINUS TACHYCARDIA LEFT ATRIAL ENLARGEMENT LEFT VENTRICULAR HYPERTROPHY AND ST-T CHANGE Electronically Signed On 03-17-2017 12:47:37 EDT by Erik Tamayo MD
== END 2017-03-15 16:00 | disposition left against medical advice (07) ==
LOC: EMEROO 14:54 → 3BNU 14:54
PROVIDERS: ADMIT Nurse Practitioner Family; ATTEND Registered Nurse

== ENCOUNTER 2017-05-12 17:05 | Inpatient (IN) ==
[2017-05-12 19:30] LABS: Basophils % 0.3 %; Eosinophils % 0.1 %; Hematocrit 30.2 % (37.5-50.1); Hemoglobin 9.6 g/dL (12.9-16.9); Immature Granulocytes % 0.7 % (0-4); Lymphocytes # 2.5 K/mcL (0.6-4.6); Lymphocytes % 18.9 %; Mean Corpuscular HGB Conc 31.8 g/dL (31.6-35.5); Mean Platelet Volume 8.9 fL (9.4-12.4); Monocytes # 1.4 K/mcL (0.0-1.3); Monocytes % 10.1 %; Neutrophils # 9.4 K/mcL (1.6-8.9); Platelet Count 493 K/mcL (140-400); Red Blood Count 3.43 M/mcL (4.19-5.50); Red Cell Distribution Width 19.2 % (11.5-14.5); Segmented Neutrophils % 69.9 %
[2017-05-12 19:51] LABS: Alanine Aminotransferase 13 Units/L (0-55); Albumin 2.4 g/dL (3.5-5.0); Albumin/Globulin Ratio 0.6 (1.1-2.2); Alkaline Phosphatase 144 Units/L (38-126); Aspartate Amino Transferase 19 Units/L (5-34); BUN/Creatinine Ratio 16 (6-26); Bilirubin,Direct 0.8 mg/dL (0.0-0.5); Bilirubin,Indirect 0.4 mg/dL (0.0-1.2); Bilirubin,Total 1.2 mg/dL (0.2-1.2); Blood Urea Nitrogen 10 mg/dL (8-26); Calcium 8.1 mg/dL (8.6-10.8); Carbon Dioxide 26 mEq/L (19-29); Chloride 91 mEq/L (98-109); Globulin 3.8 g/dL (2.4-3.5); Glucose 98 mg/dL (70-99); Lipase 12 Units/L (8-78); Osmolality,Calculated 263 (280-300); Potassium 3.1 mEq/L (3.5-4.5); Sodium 127 mEq/L (136-145); Total Protein 6.2 g/dL (6.0-8.3); eGFR For African Americans > 60 (> 60); eGFR For Non-African Americans > 60 (> 60)
[2017-05-12] MEDS ORDERED: *HR* Morphine 2 MG/ML SYRINGE IVP STA (22:51)
[2017-05-12] MEDS ORDERED: Ondansetron 4 MG/2 ML VIAL IVP ONE (22:53)
[2017-05-12 23:12] LABS: Bilirubin,Urine Small (Negative); Blood,Urine Negative (Negative); Clarity,Urine Cloudy (Clear); Color,Urine Dark Yellow (Yellow); Glucose,Urine (UA) Normal (Normal); Ketones,Urine Negative (Negative); Leukocyte Esterase,Urine Negative (Negative); Nitrite,Urine Negative (Negative); Protein,Urine Negative (Neg-Trace); Specific Gravity,Urine 1.019 (1.010-1.025); Urobilinogen,Urine Normal (Normal)
[2017-05-12 23:13] LABS: Bacteria,Urine None Seen per hpf (None-Few); Hyaline Casts,Urine None Seen per lpf (None-Few); RBC,Urine 0-3 per hpf (0-3); Squamous Epithelial Cell,Urine Many per lpf (None-Few); WBC,Urine 0-3 per hpf (0-3)
--- NOTE | 2017-05-13 00:55 | Emergency Department Note ---
Disposition Clinical Impression: Weakness, Hyponatremia Abdominal pain Qualifiers: Abdominal location: unspecified location Qualified Code(s): R10.9 - Unspecified abdominal pain Disposition: Admitted As Inpatient Condition: Good Abdominal Pain HPI - General Chief Complaint: ED Abdominal Pain Stated Complaint: ABD Pain Time Seen by Provider: 05/12/17 22:10 Source: patient, EMS Mode of arrival: ambulatory Limitations: no limitations Nursing Notes Reviewed: Yes Vital Signs Reviewed: Yes - History of Present Illness HPI Narrative: 36-year-old female presents to emergency Department with concerns of generalized weakness and abdominal pain. Patient states symptoms have been progressively worse over the past week. The 80s ago patient was seen in the emergency department for similar pain to his abdomen, he had a CT obtained which showed thickened gallbladder wall. Patient requested transfer to [facility] at that time. Patient states he was told he was not a candidate for gallbladder resected but it is unclear as to why. He states that they focused on treating his congestive heart failure. Patient has a history of chronic congestive heart failure. He does state that his bilateral lower extremities are large in the normal. Patient also states he is increasingly weak and is unable to perform activities around the house. Patient also states that he is mildly confused however there is no evidence of acute focal neurologic deficit. Pain Scale: 10 - Related Data Home Medications Medication Instructions Recorded Confirmed Gabapentin [Neurontin] 600 mg PO TID 07/17/16 05/13/17 Apixaban [Eliquis] 5 mg PO BID 12/21/16 05/13/17 Lisinopril 2.5 mg PO DAILY 12/25/16 05/13/17 Carvedilol 6.25 mg PO BID 03/14/17 05/13/17 Furosemide [Lasix] 80 mg PO DAILY 03/14/17 05/13/17 Naproxen [Naprosyn] 500 mg PO BID 03/14/17 05/13/17 Potassium Chloride 10 meq PO DAILY 05/13/17 05/13/17 Allergies Allergy/AdvReac Type Severity Reaction Status Date / Time Penicillins Allergy Anaphylaxis Verified 05/12/17 18:44 All systems ED: reviewed and negative except as stated. Constitutional: Denies: fever, chills, weakness Cardiovascular: Denies: chest pain, palpitations Respiratory: Denies: cough, dyspnea, wheezes Gastrointestinal: Reports: abdominal pain, nausea, vomiting, diarrhea Abdominal Pain PMH - Past Medical History Medical history: Reports: cardiomyopathy, CHF, DVT, hyperlipidemia, hypertension , pulmonary embolus Male Surgical History: Reports: other Psychiatric history: Reports: anxiety, depression - Social History Smoking status: Current every day smoker Alcohol use: Reports: none Drug use: Reports: none Physical Exam General: Alert and in no acute distress Skin: Warm, dry, intact Head: Normocephalic and atraumatic Neck: Supple, trachea midline and no tenderness Cardiovascular: Tachycardia, no murmur, normal perfusion Respiratory: CTAB, no wheezing, cough, or respiratory distress Musculoskeletal: Normal strength, no tenderness, swelling or deformity GI: Soft, generalized tenderness without localization. Bowel sounds present. No evidence of rigidity, guarding, or rebound. Neuro: A&O to person, place, time and situation. No focal deficits noted on exam Psychiatric: cooperative and appropriate mood and affect. - General Limitations: no limitations General appearance: alert Course Vital Signs Temperature 98.1 F 05/12/17 18:45 Pulse Rate 105 05/12/17 18:45 Respiratory Rate 20 05/12/17 18:45 Blood Pressure 87/55 05/12/17 18:45 O2 Sat by Pulse Oximetry 97 05/12/17 18:45 Temperature 98.1 F 05/13/17 14:39 Pulse Rate 103 05/13/17 14:39 Respiratory Rate 16 05/13/17 14:39 Blood Pressure 87/57 05/13/17 14:39 O2 Sat by Pulse Oximetry 99 05/13/17 14:39 Oxygen Delivery Oxygen Delivery Room Air Abdominal Pain - MDM Narrative Medical decision making narrative: Patient states that he has been increasingly weak and does not feel comfortable to return home. I do not believe the patient needs to be transferred to [facility] for further evaluation of his gallbladder as it is not as inflamed as it had been previously. Patient will be admitted to the hospital for further care and evaluation. BP improved after observation in the emergency department. - Medical Records Medical records reviewed: Yes I reviewed the patient's medical records. - Lab Data Lab results reviewed: Yes I reviewed the patient's lab results. Result diagrams: 05/13/17 07:38 05/13/17 07:38 Lab Results 05/12/17 05/12/17 05/12/17 Range/Units 19:23 19:23 19:23 WBC 13.5 H (4.3-11.1) K/mcL RBC 3.43 L (4.19-5.50) M/mcL Hgb 9.6 L (12.9-16.9) g/dL Hct 30.2 L (37.5-50.1) % MCV 88.0 (83.0-100.0) fL MCH 28.0 (28.0-33.3) pg MCHC 31.8 (31.6-35.5) g/dL RDW 19.2 H (11.5-14.5) % Plt Count 493 H (140-400) K/mcL MPV 8.9 L (9.4-12.4) fL Immature Gran % 0.7 (0-4) % Seg Neutrophils % 69.9 % Lymphocytes % 18.9 % Monocytes % 10.1 % Eosinophils % 0.1 % Basophils % 0.3 % Neutrophils # 9.4 H (1.6-8.9) K/mcL Lymphocytes # 2.5 (0.6-4.6) K/mcL Monocytes # 1.4 H (0.0-1.3) K/mcL Eosinophils # 0.0 (0.0-0.6) K/mcL Basophils # 0.0 (0.0-0.2) K/mcL PT (9.4-12.1) Seconds INR Sodium 127 L (136-145) mEq/L Potassium 3.1 L (3.5-4.5) mEq/L Chloride 91 L (98-109) mEq/L Carbon Dioxide 26 (19-29) mEq/L BUN 10 (8-26) mg/dL Creatinine 0.62 L (0.72-1.25) mg/dL Est GFR ( Amer) > 60 (> 60) Est GFR (Non-Af Amer) > 60 (> 60) BUN/Creatinine Ratio 16 (6-26) Glucose 98 (70-99) mg/dL Calculated Osmolality 263 L (280-300) Lactic Acid (0.5-2.2) mmol/L Calcium 8.1 L (8.6-10.8) mg/dL Magnesium (1.6-2.6) mg/dL Total Bilirubin 1.2 (0.2-1.2) mg/dL Direct Bilirubin 0.8 H (0.0-0.5) mg/dL Indirect Bilirubin 0.4 (0.0-1.2) mg/dL AST 19 (5-34) Units/L ALT 13 (0-55) Units/L Alkaline Phosphatase 144 H (38-126) Units/L Troponin I 0.01 (0-0.03) ng/mL B-Natriuretic Peptide (0-100) pg/mL Serum Total Protein 6.2 (6.0-8.3) g/dL Albumin 2.4 L (3.5-5.0) g/dL Globulin 3.8 H (2.4-3.5) g/dL Albumin/Globulin Ratio 0.6 L (1.1-2.2) Lipase 12 (8-78) Units/L Urine Color (Yellow) Urine Clarity (Clear) Urine pH (5.0-8.0) pH Units Ur Specific [place] (1.010-1.025) Urine Protein (Neg-Trace) mg/dL Urine Glucose (UA) (Normal) mg/dL Urine Ketones (Negative) mg/dL Urine Blood (Negative) Urine Nitrite (Negative) Urine Bilirubin (Negative) Urine Urobilinogen (Normal) mg/dL Ur Leukocyte Esterase (Negative) Urine Microscopic RBC (0-3) per hpf Urine Microscopic WBC (0-3) per hpf Ur Squamous Epith Cells (None-Few) per lpf Urine Bacteria (None-Few) per hpf Hyaline Casts (None-Few) per lpf Ur Culture Indicated? (NO) 05/12/17 05/13/17 05/13/17 Range/Units 22:55 00:08 00:08 WBC (4.3-11.1) K/mcL RBC (4.19-5.50) M/mcL Hgb (12.9-16.9) g/dL Hct (37.5-50.1) % MCV (83.0-100.0) fL MCH (28.0-33.3) pg MCHC (31.6-35.5) g/dL RDW (11.5-14.5) % Plt Count (140-400) K/mcL MPV (9.4-12.4) fL Immature Gran % (0-4) % Seg Neutrophils % % Lymphocytes % % Monocytes % % Eosinophils % % Basophils % % Neutrophils # (1.6-8.9) K/mcL Lymphocytes # (0.6-4.6) K/mcL Monocytes # (0.0-1.3) K/mcL Eosinophils # (0.0-0.6) K/mcL Basophils # (0.0-0.2) K/mcL PT (9.4-12.1) Seconds INR Sodium (136-145) mEq/L Potassium (3.5-4.5) mEq/L Chloride (98-109) mEq/L Carbon Dioxide (19-29) mEq/L BUN (8-26) mg/dL Creatinine (0.72-1.25) mg/dL Est GFR ( Amer) (> 60) Est GFR (Non-Af Amer) (> 60) BUN/Creatinine Ratio (6-26) Glucose (70-99) mg/dL Calculated Osmolality (280-300) Lactic Acid 1.9 (0.5-2.2) mmol/L Calcium (8.6-10.8) mg/dL Magnesium (1.6-2.6) mg/dL Total Bilirubin (0.2-1.2) mg/dL Direct Bilirubin (0.0-0.5) mg/dL Indirect Bilirubin (0.0-1.2) mg/dL AST (5-34) Units/L ALT (0-55) Units/L Alkaline Phosphatase (38-126) Units/L Troponin I (0-0.03) ng/mL B-Natriuretic Peptide 2000 H (0-100) pg/mL Serum Total Protein (6.0-8.3) g/dL Albumin (3.5-5.0) g/dL Globulin (2.4-3.5) g/dL Albumin/Globulin Ratio (1.1-2.2) Lipase (8-78) Units/L Urine Color Dark Yellow (Yellow) Urine Clarity Cloudy A (Clear) Urine pH 6.0 (5.0-8.0) pH Units Ur Specific [place] 1.019 (1.010-1.025) Urine Protein Negative (Neg-Trace) mg/dL Urine Glucose (UA) Normal (Normal) mg/dL Urine Ketones Negative (Negative) mg/dL Urine Blood Negative (Negative) Urine Nitrite Negative (Negative) Urine Bilirubin Small H (Negative) Urine Urobilinogen Normal (Normal) mg/dL Ur Leukocyte Esterase Negative (Negative) Urine Microscopic RBC 0-3 (0-3) per hpf Urine Microscopic WBC 0-3 (0-3) per hpf Ur Squamous Epith Cells Many H (None-Few) per lpf Urine Bacteria None Seen (None-Few) per hpf Hyaline Casts None Seen (None-Few) per lpf Ur Culture Indicated? NO (NO) 05/13/17 05/13/17 05/13/17 Range/Units 07:38 07:38 07:38 WBC 12.9 H (4.3-11.1) K/mcL RBC 3.56 L (4.19-5.50) M/mcL Hgb 9.9 L (12.9-16.9) g/dL Hct 32.1 L (37.5-50.1) % MCV 90.2 (83.0-100.0) fL MCH 27.8 L (28.0-33.3) pg MCHC 30.8 L (31.6-35.5) g/dL RDW 19.3 H (11.5-14.5) % Plt Count 536 H (140-400) K/mcL MPV 9.7 (9.4-12.4) fL Immature Gran % (0-4) % Seg Neutrophils % % Lymphocytes % % Monocytes % % Eosinophils % % Basophils % % Neutrophils # (1.6-8.9) K/mcL Lymphocytes # (0.6-4.6) K/mcL Monocytes # (0.0-1.3) K/mcL Eosinophils # (0.0-0.6) K/mcL Basophils # (0.0-0.2) K/mcL PT 20.0 H (9.4-12.1) Seconds INR 1.8 Sodium (136-145) mEq/L Potassium (3.5-4.5) mEq/L Chloride (98-109) mEq/L Carbon Dioxide (19-29) mEq/L BUN (8-26) mg/dL Creatinine (0.72-1.25) mg/dL Est GFR ( Amer) (> 60) Est GFR (Non-Af Amer) (> 60) BUN/Creatinine Ratio (6-26) Glucose (70-99) mg/dL Calculated Osmolality (280-300) Lactic Acid (0.5-2.2) mmol/L Calcium (8.6-10.8) mg/dL Magnesium 1.6 (1.6-2.6) mg/dL Total Bilirubin (0.2-1.2) mg/dL Direct Bilirubin (0.0-0.5) mg/dL Indirect Bilirubin (0.0-1.2) mg/dL AST (5-34) Units/L ALT (0-55) Units/L Alkaline Phosphatase (38-126) Units/L Troponin I (0-0.03) ng/mL B-Natriuretic Peptide (0-100) pg/mL Serum Total Protein (6.0-8.3) g/dL Albumin (3.5-5.0) g/dL Globulin (2.4-3.5) g/dL Albumin/Globulin Ratio (1.1-2.2) Lipase (8-78) Units/L Urine Color (Yellow) Urine Clarity (Clear) Urine pH (5.0-8.0) pH Units Ur Specific [place] (1.010-1.025) Urine Protein (Neg-Trace) mg/dL Urine Glucose (UA) (Normal) mg/dL Urine Ketones (Negative) mg/dL Urine Blood (Negative) Urine Nitrite (Negative) Urine Bilirubin (Negative) Urine Urobilinogen (Normal) mg/dL Ur Leukocyte Esterase (Negative) Urine Microscopic RBC (0-3) per hpf Urine Microscopic WBC (0-3) per hpf Ur Squamous Epith Cells (None-Few) per lpf Urine Bacteria (None-Few) per hpf Hyaline Casts (None-Few) per lpf Ur Culture Indicated? (NO) 05/13/17 05/13/17 Range/Units 07:38 07:38 WBC (4.3-11.1) K/mcL RBC (4.19-5.50) M/mcL Hgb (12.9-16.9) g/dL Hct (37.5-50.1) % MCV (83.0-100.0) fL MCH (28.0-33.3) pg MCHC (31.6-35.5) g/dL RDW (11.5-14.5) % Plt Count (140-400) K/mcL MPV (9.4-12.4) fL Immature Gran % (0-4) % Seg Neutrophils % % Lymphocytes % % Monocytes % % Eosinophils % % Basophils % % Neutrophils # (1.6-8.9) K/mcL Lymphocytes # (0.6-4.6) K/mcL Monocytes # (0.0-1.3) K/mcL Eosinophils # (0.0-0.6) K/mcL Basophils # (0.0-0.2) K/mcL PT (9.4-12.1) Seconds INR Sodium 127 L (136-145) mEq/L Potassium 3.1 L (3.5-4.5) mEq/L Chloride 90 L (98-109) mEq/L Carbon Dioxide 22 (19-29) mEq/L BUN 12 (8-26) mg/dL Creatinine 0.69 L (0.72-1.25) mg/dL Est GFR ( Amer) > 60 (> 60) Est GFR (Non-Af Amer) > 60 (> 60) BUN/Creatinine Ratio 17 (6-26) Glucose 126 H (70-99) mg/dL Calculated Osmolality 265 L (280-300) Lactic Acid (0.5-2.2) mmol/L Calcium 8.4 L (8.6-10.8) mg/dL Magnesium (1.6-2.6) mg/dL Total Bilirubin (0.2-1.2) mg/dL Direct Bilirubin (0.0-0.5) mg/dL Indirect Bilirubin (0.0-1.2) mg/dL AST (5-34) Units/L ALT (0-55) Units/L Alkaline Phosphatase (38-126) Units/L Troponin I 0.01 (0-0.03) ng/mL B-Natriuretic Peptide (0-100) pg/mL Serum Total Protein (6.0-8.3) g/dL Albumin (3.5-5.0) g/dL Globulin (2.4-3.5) g/dL Albumin/Globulin Ratio (1.1-2.2) Lipase (8-78) Units/L Urine Color (Yellow) Urine Clarity (Clear) Urine pH (5.0-8.0) pH Units Ur Specific [place] (1.010-1.025) Urine Protein (Neg-Trace) mg/dL Urine Glucose (UA) (Normal) mg/dL Urine Ketones (Negative) mg/dL Urine Blood (Negative) Urine Nitrite (Negative) Urine Bilirubin (Negative) Urine Urobilinogen (Normal) mg/dL Ur Leukocyte Esterase (Negative) Urine Microscopic RBC (0-3) per hpf Urine Microscopic WBC (0-3) per hpf Ur Squamous Epith Cells (None-Few) per lpf Urine Bacteria (None-Few) per hpf Hyaline Casts (None-Few) per lpf Ur Culture Indicated? (NO) - Radiology Data Radiology results reviewed: Yes I reviewed the patient's radiology results. - EKG Data EKG attestation: Yes I reviewed and interpreted this EKG.
[2017-05-13] MEDS ORDERED: *HR* Morphine 2 MG/ML SYRINGE IVP PRN (03:47)
[2017-05-13] MEDS ORDERED: Acetaminophen 325 MG TABLET PO PRN (06:54)
[2017-05-13] MEDS ORDERED: Naloxone 0.4 MG/ML INJ IVP PRN (06:54)
[2017-05-13] MEDS ORDERED: Ondansetron 4 MG/2 ML VIAL IVP PRN (06:54)
[2017-05-13 08:38] LABS: Hematocrit 32.1 % (37.5-50.1); Hemoglobin 9.9 g/dL (12.9-16.9); Mean Corpuscular HGB Conc 30.8 g/dL (31.6-35.5); Mean Corpuscular Hemoglobin 27.8 pg (28.0-33.3); Mean Corpuscular Volume 90.2 fL (83.0-100.0); Mean Platelet Volume 9.7 fL (9.4-12.4); Platelet Count 536 K/mcL (140-400); Red Blood Count 3.56 M/mcL (4.19-5.50); Red Cell Distribution Width 19.3 % (11.5-14.5)
[2017-05-13 08:44] LABS: INR 1.8
[2017-05-13 08:53] LABS: BUN/Creatinine Ratio 17 (6-26); Blood Urea Nitrogen 12 mg/dL (8-26); Calcium 8.4 mg/dL (8.6-10.8); Carbon Dioxide 22 mEq/L (19-29); Chloride 90 mEq/L (98-109); Glucose 126 mg/dL (70-99); Osmolality,Calculated 265 (280-300); Potassium 3.1 mEq/L (3.5-4.5); Sodium 127 mEq/L (136-145); eGFR For African Americans > 60 (> 60); eGFR For Non-African Americans > 60 (> 60)
[2017-05-13] MEDS ORDERED: Gabapentin 300 MG CAPSULE PO SCH (09:00)
[2017-05-13] MEDS ORDERED: APIXABAN 5 MG TABLET PO SCH (09:00)
[2017-05-13] MEDS ORDERED: Furosemide 80 MG in 0.9 % Sodium Chloride 50 ML IVPB SCH (09:00)
[2017-05-13] MEDS: Lidocaine 4% CREAM (LMX) 5 GM TP SCH ×3 (10:30→13:58)
--- NOTE | 2017-05-13 11:27 | Internal Med Progress Note ---
Date of Encounter: 05/13/17 Time of Encounter: 11:25 - Assessment and plan (1) Abdominal pain Current Visit: Yes Status: Acute Assessment and plan: Could be due to cholecystitis Reviewed his CT of abd - showing chronic cholecysitis U/S Abd - showing no cholecithiasis .. chronic mild gallbladder wall thicking Due to his clinical presentation - concerned about acute on chronic Will start him on empirical abx Levofloxacin Surgery consulted NPO for now HIDA scan Qualifiers: Qualified Code(s): R10.11 - Right upper quadrant pain (2) Cholecystitis, chronic Current Visit: Yes Status: Acute (3) Acute on chronic systolic CHF (congestive heart failure), NYHA class 2 Current Visit: No Status: Acute Assessment and plan: worsening b/l LE edema and inc BNP reviewed Cath and recent 2 D Echo will start him on IV Lasix resumed other home meds (4) Hyponatremia Current Visit: Yes Status: Acute Assessment and plan: Due to volume overload - hypervolemic hyponatremia will start him on IV lasix cont close monitoring (5) HTN (hypertension) Current Visit: No Status: Chronic Assessment and plan: stable with current regimen Qualifiers: Hypertension type: essential hypertension Qualified Code(s): I10 - Essential (primary) hypertension (6) Dilated cardiomyopathy Current Visit: No Status: Acute Assessment and plan: Does have LVEF 20% resume home meds including laix (7) Leukocytosis Current Visit: No Status: Acute Assessment and plan: noticed chronically elevated leukocytosis Qualifiers: Leukocytosis type: unspecified Qualified Code(s): D72.829 - Elevated white blood cell count, unspecified (8) 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 Denied any nausea and vomiting. Pain is sharp innature, radiating to his upper back some times, 6-8/10 in severity. He denied any CP / SOB. Also c/o swelling in the legs. - Constitutional Vitals: Temp Pulse Resp BP Pulse Ox 98.0 F 107 18 95/68 94 05/13/17 07:44 05/13/17 07:44 05/13/17 07:44 05/13/17 07:44 05/13/17 07:44 General appearance: Present: A&O X 3, no acute distress (looks liitle anxious), answers questions appropriately - Head Head exam: Present: atraumatic Additional comments: chronic Left scalp ulcer.. scab formation.. - Respiratory Respiratory exam: Present: decreased breath sounds, wheezes. Absent: rales, respiratory distress, rhonchi - Cardiovascular Cardiovascular exam: Present: gallop, RRR, +S1, +S2. Absent: systolic murmur - GI/Abdominal GI/Abdominal exam: Present: soft, tenderness (RUQ tenderness..Positive Wilson;s sign). Absent: rebound, rigid - Extremities Exam Extremities exam: Absent: calf tenderness, pedal edema, tenderness - Neurological Exam Neurological exam: Present: alert, oriented X3. Absent: no focal deficits Internal Medicine: Result - Labs CBC & Chem 7: 05/13/17 07:38 05/13/17 07:38 - ABG Interpretation ABG results: PT/INR, D-dimer PT 20.0 Seconds (9.4-12.1) H 05/13/17 07:38 Consult Discharge Plan - Plan Referrals: NONE,PCP [Primary Care Provider] -
--- NOTE | 2017-05-13 13:58 | Cardiology Consult Note ---
<Josey Lorenzo - Last Filed: 05/13/17 14:01> Date of Encounter: 05/13/17 Time of Encounter: 12:00 Assessment and Plan (1) Abdominal pain Status: Acute Per cardiology: -Admitted with abdominal pain. -Management per primary service. Qualifiers: Abdominal location: unspecified location Qualified Code(s): R10.9 - Unspecified abdominal pain (2) Acute on chronic systolic CHF (congestive heart failure), NYHA class 2 Status: Chronic Per cardiology: -KNown non-ischemic cardiomyopathy. -On lasix 40IV BID. -WEight today 207 pounds, baseline weight 203 pounds. -Pedal edema noted. Reports worsening shortness of breath. -Of note, has had multiple admission at [facility] and [facility]. However, patient signs himself out AMA. Patient has also had poor compliance with his follow up appointments. -Patient admits to non-compliance with medications and restirctions at home. -On beta rosalina and marysol inhibitor. -[facility] 12/24/16 with normal coronary arteries. -01/2017 Cardiac MRI with LVEF 19%, severe global hypokinesis. -Strict I/os, daily weight, fluid restirction. -Will continue to monitor. (3) Scalp lesion Status: Chronic Per cardiology: -Large scalp lesion on right side of head. -Management per primary service. Discussion w patient/family: The assessment and plan as outlined above was discussed with the patient and/or family members who expressed understanding and agreement. All questions were answered. Thank you for involving us in the care of your patient. Please call with any questions. Discussed and reviewed with . History of Present Illness Consult date: 05/13/17 Requesting physician: Jd Keys Consult reason: cardiomyopathy Chief complaint: abdominal pain History of present illness: Mr. Welch is a 36 year old male with a relevant past medical history of non- ischemic cardiomyopathy, CHF, anxiety, depression, alopecia, and smoking. Patient presented to [facility] with complaints of abdominal pain. Patient admits to worsening edema and shortness of breath. Patient admits to non-compliance with fluid restrictions at home. Past Med Surg Social Fam HX - Past Medical History Attestation: Yes The following information was validated with the patient. Source: patient, old records reviewed Medical history: cardiomyopathy, CHF, DVT, hyperlipidemia, hypertension, pulmonary embolus Psychiatric history: anxiety, depression - Past Surgical History Surgical History: other ([facility] - 12/2016 - minimal CAD) - Social History Smoking Status: Current every day smoker Packs per day: 1/ Smokeless Tobacco Status: No Alcohol use: none Drug use: none - Family History Mother Family Member Ethnicity: Non- Living Status: Still Living Hx Family Cardiac Disorders: No Hx Family Respiratory Disorders: No Hx Family Cancer: Yes (Uterine.) Hx Family GI Disorders: No Hx Family Endocrine Disorder: No Hx Family Neuromuscular Disorders: No Hx Family Neurologic Disorders: No Hx Family HEENT Disorders: No Medications and Allergies Gabapentin [Neurontin] 600 mg PO TID 07/17/16 [History] Apixaban [Eliquis] 5 mg PO BID 12/21/16 [History] Lisinopril 2.5 mg PO DAILY 12/25/16 [History] Carvedilol 6.25 mg PO BID 03/14/17 [History] Furosemide [Lasix] 80 mg PO DAILY 03/14/17 [History] Naproxen [Naprosyn] 500 mg PO BID 03/14/17 [History] Potassium Chloride 10 meq PO DAILY 05/13/17 [History] 3 Allergy/AdvReac Type Severity Reaction Status Date / Time Penicillins Allergy Anaphylaxis Verified 05/12/17 18:44 All Systems Review: A 10-system review of systems was performed and is negative for pertinent findings except as documented above in the HPI. - Cardiovascular Cardiovascular: as per HPI, dyspnea on exertion, leg edema - Gastrointestinal Gastrointestinal: abdominal pain Physical Examination Vital Signs, Last 4 Hours Temp Pulse Resp BP Pulse Ox 05/13/17 11:52 97.9 F 103 16 95/67 99 General: Conversant, No Apparent Distress HEENT: Atraumatic, Normocephaly, Mucus Membranes Moist Neck: No JVD, Normal carotid pulses Cardiac: Reg Rate and Rhythm, Normal S1 and S2, No Murmur Lungs: Normal Breath Sounds, No Wheeze, Rales, Rhonchi Neuro: Alert and responsive, No focal deficits noted Abdomen: Soft, Non-Tender Skin: Other (Right side of head with large area of excoriation, extending into neck. Lesion oozing. ) Musculoskeletal: No Chest Wall Tenderness Extremities: No Clubbing, No Cyanosis, Normal Pulses, Other (Bilateral pedal edema noted. ) Results 05/13/17 07:38 05/13/17 07:38 Impressions Gallbladder Ultrasound 05/12/17 22:53 IMPRESSION: Mild gallbladder wall thickening without cholelithiasis or pericholecystic fluid. Given CT evidence of gallbladder wall thickening on CTs of the abdomen pelvis dating back to 06/22/2016, this may represent a component of chronic cholecystitis. This could be evaluated by a HIDA scan as clinically indicated. Hepatic steatosis D/ / 05/13/2017 07:06:20 Kanu Alonzo MD / earnold Interpreting Provider: Kanu Alonzo MD Chest X-Ray 05/13/17 00:25 IMPRESSION: Cardiomegaly and clear lungs. D/ / James Roberts MD / James Roberts MD Interpreting Provider: James Roberts MD Active Medications Acetaminophen (Tylenol) 650 mg PO Q6HR PRN PRN Reason: Mild Pain (1-3) Stop: 11/12/17 06:55 Apixaban (Eliquis) 5 mg PO BID FLAKITO Stop: 11/12/17 09:01 Last Admin: 05/13/17 09:08 Dose: 5 mg Carvedilol (Coreg) 6.25 mg PO BID FLAKITO Stop: 11/12/17 09:01 Last Admin: 05/13/17 09:08 Dose: 6.25 mg Famotidine (Pepcid) 20 mg IVP Q12HR FLAKITO Stop: 11/12/17 18:01 Furosemide (Lasix) 40 mg IVP BIDDIURETIC FLAKITO Stop: 11/12/17 17:01 Gabapentin (Neurontin) 600 mg PO TID FLAKITO Stop: 11/12/17 09:01 Last Admin: 05/13/17 09:08 Dose: Not Given Lidocaine HCl (Lmx 4) 1 gm TP QID FLAKITO Stop: 11/12/17 09:01 Last Admin: 05/13/17 13:58 Dose: 1 gm Lisinopril (Zestril) 2.5 mg PO DAILY FLAKITO Stop: 11/12/17 09:01 Last Admin: 05/13/17 13:59 Dose: Not Given Morphine Sulfate (Morphine Sulfate) 2 mg IVP Q4HR PRN PRN Reason: Moderate Pain Stop: 11/12/17 03:48 Last Admin: 05/13/17 04:50 Dose: 2 mg Naloxone HCl (Narcan) 0.4 mg IVP Q2MIN PRN PRN Reason: Opioid Reversal Stop: 11/12/17 06:55 Ondansetron HCl (Zofran) 4 mg IVP Q8HR PRN PRN Reason: Nausea And Vomiting Stop: 11/12/17 06:55 Laboratory Tests 04/24/17 05/04/17 05/12/17 22:55 23:25 19:23 WBC Hgb Creatinine Troponin I 0.01 B-Natriuretic Peptide 1994 H 3072 H 05/13/17 05/13/17 05/13/17 00:08 07:38 07:38 WBC 12.9 H Hgb 9.9 L Creatinine 0.69 L Troponin I B-Natriuretic Peptide 2000 H 05/13/17 07:38 WBC Hgb Creatinine Troponin I 0.01 B-Natriuretic Peptide - Imaging and Cardiology Chest Xray: report reviewed Echo: report reviewed Cardiac cath: report reviewed - EKG Interpretation EKG results cardiology: personally reviewed (ECG with sinus rhythm, HR 93), other (Telemetry reviewed with average HR 109, sinus tachycardia. PVCs noted.) Consult Discharge Plan - Plan Referrals: NONE,PCP [Primary Care Provider] - <Annalise Cortes - Last Filed: 05/13/17 17:24> Date of Encounter: 05/13/17 Assessment and Plan Discussion w patient/family: The assessment and plan as outlined above was discussed with the patient and/or family members who expressed understanding and agreement. All questions were answered. Thank you for involving us in the care of your patient. Please call with any questions. History of Present Illness History of present illness: Mr. Welch is a 36 year old male All Systems Review: A 10-system review of systems was performed and is negative for pertinent findings except as documented above in the HPI. Physical Examination Vital Signs, Last 4 Hours Temp Pulse Resp BP Pulse Ox 05/13/17 14:39 98.1 F 103 16 87/57 99 Results 05/13/17 07:38 05/13/17 07:38 Lab Results 05/13/17 13:57 Troponin I 0.00 - Attending Attestation I reviewed the case with the Nurse Practitioner and agree with plan of care. The patient was threatening to leave AMA at the time I entered the room. I made attempts to advise him to stay for medical treatment. However, it appears that he has left against medical advice. Recommend trying to schedule him as an outpatient.
[2017-05-13 14:40] VITALS: BP 87/57
[2017-05-13] MEDS ORDERED: Furosemide 40 MG/4 ML VIAL IVP SCH (17:00)
[2017-05-13] MEDS ORDERED: Famotidine 20 MG/2 ML VIAL IVP SCH (18:00)
--- NOTE | 2017-05-13 18:38 | Electrocardiograph Report ---
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
--- NOTE | 2017-05-14 07:48 | Internal Med History&Physical ---
Date of Encounter: 05/13/17 Time of Encounter: 09:45 Assessment and Plan (1) Abdominal pain Status: Acute Could be due to cholecystitis Reviewed his CT of abd - showing chronic cholecysitis U/S Abd - showing no cholecithiasis .. chronic mild gallbladder wall thicking Due to his clinical presentation - concerned about acute on chronic Will start him on empirical abx Levofloxacin Surgery consulted NPO for now HIDA scan Qualifiers: Abdominal location: unspecified location Qualified Code(s): R10.9 - Unspecified abdominal pain (2) Cholecystitis, chronic Status: Acute See above (3) Acute on chronic systolic CHF (congestive heart failure), NYHA class 2 Status: Chronic worsening b/l LE edema and inc BNP reviewed Cath and recent 2 D Echo will start him on IV Lasix resumed other home meds (4) Hyponatremia Status: Acute Due to volume overload - hypervolemic hyponatremia will start him on IV lasix cont close monitoring (5) HTN (hypertension) Status: Chronic stable with home meds Qualifiers: Hypertension type: essential hypertension Qualified Code(s): I10 - Essential (primary) hypertension (6) Dilated cardiomyopathy Status: Acute Does have LVEF 20% resume home meds including laix (7) Leukocytosis Status: Acute Noticed chronically elevated WBC Qualifiers: Leukocytosis type: unspecified Qualified Code(s): D72.829 - Elevated white blood cell count, unspecified (8) Skin ulcer of scalp with fat layer exposed Status: Chronic cont local care (9) DVT prophylaxis Status: Chronic on Eliquis Internal Medicine - H&P: HPI Chief complaint: RUQ abd pain Admitted From: Emergency Dept Plans for Post Hospital Care: Home History of present illness: This is a 36 y/o M with known PMH of Non ischemic cardiomyopathy with LVEF 20 % , Systolci CHF, Chronic Rt scalp lesion , and chronic cholecystitis pt presented to ER last night c/o worsening RUQ abdominal pain from past few days. Denied any nausea and vomiting. Pain is sharp innature, radiating to his upper back some times, 6-8/10 in severity. He denied any CP / SOB. Also c/o swelling in the legs. Past Med Surg Social Fam HX - Past Medical History Medical history: cardiomyopathy, CHF, DVT, hyperlipidemia, hypertension, pulmonary embolus Psychiatric history: anxiety, depression - Past Surgical History Surgical History: other ([facility] - 12/2016 - minimal CAD) - Social History Smoking Status: Current every day smoker Packs per day: 1/ Smokeless Tobacco Status: No Alcohol use: none Drug use: none - Family History Mother Family Member Ethnicity: Non- Living Status: Still Living Hx Family Cardiac Disorders: No Hx Family Respiratory Disorders: No Hx Family Cancer: Yes (Uterine.) Hx Family GI Disorders: No Hx Family Endocrine Disorder: No Hx Family Neuromuscular Disorders: No Hx Family Neurologic Disorders: No Hx Family HEENT Disorders: No Internal Medicine - H&P: Meds Gabapentin [Neurontin] 600 mg PO TID 07/17/16 [History] Apixaban [Eliquis] 5 mg PO BID 12/21/16 [History] Lisinopril 2.5 mg PO DAILY 12/25/16 [History] Carvedilol 6.25 mg PO BID 03/14/17 [History] Furosemide [Lasix] 80 mg PO DAILY 03/14/17 [History] Naproxen [Naprosyn] 500 mg PO BID 03/14/17 [History] Potassium Chloride 10 meq PO DAILY 05/13/17 [History] 3 Allergy/AdvReac Type Severity Reaction Status Date / Time Penicillins Allergy Anaphylaxis Verified 05/12/17 18:44 All Systems PM: A 10-system review of systems was performed and is negative for pertinent findings except as documented above in the HPI. Review of systems: All the systems are reviewed everything is benign except the systems and symptoms I mentioned in the history of present illness - Constitutional Vitals: Temp Pulse Resp BP Pulse Ox 98.1 F 103 16 87/57 99 05/13/17 14:39 05/13/17 14:39 05/13/17 14:39 05/13/17 14:39 05/13/17 14:39 General appearance: Present: A&O X 3, no acute distress (looks liitle anxious), answers questions appropriately - Head Additional comments: Chronic open wound over Right side of scalp and posterior side of neck - Neck Neck exam general surgery: Present: supple - Cardiovascular Cardiovascular exam: Present: gallop, +S1, +S2. Absent: systolic murmur - GI/Abdominal GI/Abdominal exam: Present: normal bowel sounds, soft, tenderness (RUQ). Absent : rebound, rigid - Extremities Exam Extremities exam: Present: pedal edema (2+). Absent: calf tenderness, tenderness - Neurological Exam Neurological exam: Present: alert, oriented X3 - Psychiatric Psychiatric exam: Present: normal affect, normal mood Internal Med - H&P Results - Labs CBC & Chem 7: 05/13/17 07:38 05/13/17 07:38 Labs: Cardiac Enzymes 05/13/17 Range/Units 13:57 Troponin I 0.00 (0-0.03) ng/mL
--- NOTE | 2017-05-14 07:57 | Discharge Summary ---
Date of Encounter: 05/13/17 Time of Encounter: 18:00 - Discharge Diagnosis (1) Abdominal pain Priority: Primary Status: Acute Qualifiers: Abdominal location: unspecified location Qualified Code(s): R10.9 - Unspecified abdominal pain (2) Cholecystitis, chronic Priority: Primary Status: Acute (3) Acute on chronic systolic CHF (congestive heart failure), NYHA class 2 Priority: Primary Status: Chronic (4) Hyponatremia Priority: Secondary Status: Acute (5) HTN (hypertension) Priority: Secondary Status: Chronic Qualifiers: Hypertension type: essential hypertension Qualified Code(s): I10 - Essential (primary) hypertension (6) Dilated cardiomyopathy Priority: Secondary Status: Acute (7) Leukocytosis Priority: Secondary Status: Acute Qualifiers: Leukocytosis type: unspecified Qualified Code(s): D72.829 - Elevated white blood cell count, unspecified (8) Skin ulcer of scalp with fat layer exposed Priority: Secondary Status: Chronic (9) DVT prophylaxis Priority: Secondary Status: Chronic - Discharge Medications Home Medications: Gabapentin [Neurontin] 600 mg PO TID 07/17/16 [History] Apixaban [Eliquis] 5 mg PO BID 12/21/16 [History] Lisinopril 2.5 mg PO DAILY 12/25/16 [History] Carvedilol 6.25 mg PO BID 03/14/17 [History] Furosemide [Lasix] 80 mg PO DAILY 03/14/17 [History] Naproxen [Naprosyn] 500 mg PO BID 03/14/17 [History] Potassium Chloride 10 meq PO DAILY 05/13/17 [History] Allergies/Adverse Reactions: 3 Allergy/AdvReac Type Severity Reaction Status Date / Time Penicillins Allergy Anaphylaxis Verified 05/12/17 18:44 Date of admission: 05/13/17 10:33 Primary care physician: PCP NONE Consults: 05/13/17 11:04 Consult to Physical Therapy [CONS] Routine Comment: Evaluate, develop and implement POC Reason for Consult: weakness and unsteady gait with cane. 05/13/17 11:06 Consult to Occupational Therapy [CONS] Routine Comment: Evaluate, develop and implement POC Reason for Consult: weakness and unsteady gait with cane. 05/13/17 11:17 Consult to Surgery [CONS] Routine Consulting Provider: Ryan Aguirre Reason for Consult: Acute on chronic cholecystitis Call Completed: Yes - Patient Status Disposition: Left Against Medical Advice Condition: Good - Discharge Instructions Follow Up With: NONE,PCP [Primary Care Provider] - Hospital course: This is a 36 y/o M with known PMH of Non ischemic cardiomyopathy with LVEF 20 % , Systolci CHF, Chronic Rt scalp lesion , and chronic cholecystitis pt presented to ER last night c/o worsening RUQ abdominal pain from past few days. Denied any nausea and vomiting. Pain is sharp innature, radiating to his upper back some times, 6-8/10 in severity. He denied any CP / SOB. Also c/o swelling in the legs. Pt was admitted in the hospital and started him on IV Lasix.. Also consulted cardiology for further evaluation. Regarding his abdominal pain with chronic cholecystitis changes on CT scan, we ordered HIDA scan and consulted Surgery for further evaluation. Apparently pt has been going out of the hospital to smoke for every now and then. When we told him it is not safe to leave the floor due to his heart condition and abdominal pain, pt decided to leave against our medical advice. he does aware of all the consequences, if we do not fix his gallbladder issues and heart failure exacerbations. However he still decided to leave AMA. - Time Spent with Patient Total time spent providing and/or coordinating discharge services: - Constitutional Vitals: Temp Pulse Resp BP Pulse Ox 98.1 F 103 16 87/57 99 05/13/17 14:39 05/13/17 14:39 05/13/17 14:39 05/13/17 14:39 05/13/17 14:39 General appearance: Present: A&O X 3, no acute distress (looks liitle anxious), answers questions appropriately
== END 2017-05-13 16:02 | disposition left against medical advice (07) | DRG 194 ==
LOC: EMEROO 17:05 → 3BNU 17:05
PROVIDERS: ADMIT Family Medicine; ATTEND Registered Nurse

== ENCOUNTER 2019-02-06 21:02 | Inpatient (IN) ==
--- NOTE | 2019-02-06 21:24 | Emergency Department Note ---
Disposition Clinical Impression: Atypical chest pain, Hydropneumothorax CHF (congestive heart failure) Qualifiers: Heart failure type: unspecified Heart failure chronicity: chronic Qualified Code(s): I50.9 - Heart failure, unspecified Disposition: Admitted As Inpatient Time of Disposition: 22:50 Chest Pain HPI - General Chief Complaint: ED Chest Pain Stated Complaint: chest pain Time Seen by Provider: 02/06/19 21:08 Source: patient Mode of arrival: ambulatory Limitations: no limitations Vital Signs Reviewed: Yes Nursing Notes Reviewed: Yes - History of Present Illness HPI Narrative: 38 yo male with past medical history of nonischemic cardiomyopathy, recently discharged from hospice care, presents to the emergency department with the complaint of "fluid around his left lung". Patient states over the past 3 days he has felt as though there is fluid sloshing around inside his rib cage. This is been causing him some discomfort but he denies any chest pain or increased shortness of breath. He states his last ejection fraction was less than 20%. He states he is not always compliant with his medications. He was taking Percocet and fentanyl patches for his pain but since he has been discharged from hospice all he is had is the immediate release morphine which she states he is almost out of. Patient denies fever, chills, cough, abdominal pain, nausea and vomiting. He is concerned that he may have developed pneumonia. Severity scale (1-10): 8 - Related Data Home Medications Medication Instructions Recorded Confirmed Gabapentin [Neurontin] 600 mg PO TID 07/17/16 05/13/17 Apixaban [Eliquis] 5 mg PO BID 12/21/16 05/13/17 Lisinopril 2.5 mg PO DAILY 12/25/16 05/13/17 Carvedilol 6.25 mg PO BID 03/14/17 05/13/17 Furosemide [Lasix] 80 mg PO DAILY 03/14/17 05/13/17 Naproxen [Naprosyn] 500 mg PO BID 03/14/17 05/13/17 Potassium Chloride 10 meq PO DAILY 05/13/17 05/13/17 Previous Rx's Medication Instructions Recorded Oxycodone HCl/Acetaminophen 1 each PO Q6HR PRN #10 tablet 05/28/17 [Percocet 5-325 mg Tablet] Oxycodone HCl/Acetaminophen 1 each PO BID #6 tablet 06/25/17 [Percocet 10-325 mg Tablet] OxyCODONE/APAP 5/325 [Percocet 1 each PO Q6HR PRN #12 tablet 07/10/17 5/325 MG] Allergies Allergy/AdvReac Type Severity Reaction Status Date / Time Penicillins Allergy Anaphylaxis Verified 05/28/17 02:24 All systems ED: reviewed and negative except as stated. Review of Systems: As Per HPI Constitutional: Denies: fever, chills, weakness Cardiovascular: Denies: chest pain, palpitations, dyspnea on exertion, orthopnea, edema, syncope Respiratory: Denies: cough, dyspnea, wheezes, hemoptysis Gastrointestinal: Denies: abdominal pain, nausea, vomiting Integumentary: Denies: rash Chest Pain PMH - Past Medical History Medical history: Reports: cardiomyopathy, CHF, DVT, hyperlipidemia, hyper tension, myocardial infarction, pulmonary embolus Surgical history: Reports: other ([facility] - 12/2016 - minimal CAD) Psychiatric history: Reports: anxiety, depression - Social History Smoking Status: Current every day smoker Alcohol use: Reports: occasionally Drug use: Reports: none Physical Exam - General Limitations: no limitations General appearance: alert, in no apparent distress - Head Head exam: normocephalic, other (lare area of right posterior scalp without hair growth secondary to brown recluse spider) - Eye Eye exam: Present: normal appearance, EOMI, miosis - ENT ENT exam: normal exam - Neck Neck exam: Present: normal inspection. Absent: tenderness, lymphadenopathy - Chest Chest inspection: Present: normal inspection. Absent: tenderness, rash - Respiratory Respiratory exam: Present: normal lung sounds bilaterally. Absent: wheezes - Cardiovascular Cardiovascular exam: Present: regular rate, normal rhythm - Abdominal Exam Abdominal exam: Present: soft, Non-Tender. Absent: distention, guarding, rebound, rigidity - Extremities Exam Extremities exam: Present: normal inspection. Absent: tenderness, pedal edema - Neurological Exam Neurological exam: Present: alert, oriented X3 - Psychiatric Psychiatric exam: Present: anxious - Skin Skin exam: Present: warm, dry, intact Course Vital Signs Temperature 98.1 F 02/06/19 21:05 Pulse Rate 92 02/06/19 21:05 Respiratory Rate 18 02/06/19 21:05 Blood Pressure 107/70 02/06/19 21:05 O2 Sat by Pulse Oximetry 99 02/06/19 21:05 Temperature 98.1 F 02/06/19 21:05 Pulse Rate 90 02/06/19 21:35 Respiratory Rate 18 02/06/19 21:35 Blood Pressure 100/76 02/06/19 21:35 O2 Sat by Pulse Oximetry 98 02/06/19 21:35 Oxygen Delivery Oxygen Delivery Room Air Chest Pain - MDM Narrative Medical decision making narrative: Patient with history of CHF presents with concerns for pneumonia and a feeling of liquid sloshing in the left side of his chest. He will be evaluated for ACS with EKG, basic labs, troponin, magnesium, 2 view chest x-ray. 2225 - chest x-ray shows signs of moderate size hydropneumothorax without any evidence of tension. His lab work is at his baseline and there are no signs of acute heart attack on his EKG. Findings were discussed with the patient and he was offered chest tube in the emergency department but he has deferred to interventional radiology and is agreeable with admission to the hospital at this time. As patient's vital signs are stable this is not an emergent procedure and waiting until the morning is an acceptable risk. Hospitalist will be called for admission at this time. 2250 - pt has been accepted by Dr. Fernandez. Spoke with Dr. Peter, acute care surgeon, who was made aware of this patient and states he is agreeable to doing a chest tube on the patient if needed. - Medical Records Medical records reviewed: Yes I reviewed the patient's medical records. - Lab Data Lab results reviewed: Yes I reviewed the patient's lab results. Result diagrams: 02/06/19 21:26 02/06/19 21:26 Lab Results 02/06/19 02/06/19 02/06/19 Range/Units 21:26 21:26 21:26 WBC 7.5 (4.3-11.1) K/mcL RBC 4.76 (4.19-5.50) M/mcL Hgb 14.6 (12.9-16.9) g/dL Hct 44.6 (37.5-50.1) % MCV 93.7 (83.0-100.0) fL MCH 30.7 (28.0-33.3) pg MCHC 32.7 (31.6-35.5) g/dL RDW 13.5 (11.5-14.5) % Plt Count 247 (140-400) K/mcL MPV 10.3 (9.4-12.4) fL Immature Gran % 0.3 (0-4) % Seg Neutrophils % 50.7 % Lymphocytes % 28.9 % Monocytes % 10.6 % Eosinophils % 8.4 % Basophils % 1.1 % Neutrophils # 3.8 (1.6-8.9) K/mcL Lymphocytes # 2.2 (0.6-4.6) K/mcL Monocytes # 0.8 (0.0-1.3) K/mcL Eosinophils # 0.6 (0.0-0.6) K/mcL Basophils # 0.1 (0.0-0.2) K/mcL Sodium 135 L (136-145) mEq/L Potassium 3.7 (3.5-5.1) mEq/L Chloride 99 (98-107) mEq/L Carbon Dioxide 30 H (23-29) mEq/L BUN 13 (6-20) mg/dL Creatinine 0.54 L (0.70-1.30) mg/dL Est GFR ( Amer) > 60 (> 60) Est GFR (Non-Af Amer) > 60 (> 60) BUN/Creatinine Ratio 24 (6-26) Glucose 91 (70-105) mg/dL Calculated Osmolality 280 (280-300) Calcium 9.2 (8.6-10.3) mg/dL Magnesium 2.0 (1.6-2.6) mg/dL Troponin I < 0.03 (< 0.04) ng/mL B-Natriuretic Peptide 460 H (Less than 100) pg/mL - Radiology Data Radiology results reviewed: Yes I reviewed the patient's radiology results. - EKG Data EKG attestation: Yes I reviewed and interpreted this EKG. EKG results narrative: EKG obtained at 21:16 on 02/06/2019 Heart rate 93 bpm, IN interval 188, QRS duration 106, QT 382, QTC 476 Sinus rhythm with evidence of left ventricular hypertrophy in the anterior leads. Likely early repolarization seen in lead V2 with T-wave inversions in leads V5 and V6. No ST segment elevations or depressions. No other T-wave abnormalities. No significant changes when compared to previous EKG dated 07/06/2017. Heart Score - Score History: Slightly Suspicious EKG: Non Specific repolarisation Disturbance Age: Less than 45 Risk Factors: Equal/Greater than 3 risk factor or history of atherosclerotic disease Troponin: Less than normal limit HEART Score Total: 3
--- NOTE | 2019-02-06 21:34 | Emergency Department Note ---
Disposition Clinical Impression: Atypical chest pain Disposition: Still a Patient Forms: ED Satisfaction Letter Time of Disposition: 21:34 General Adult HPI - General Chief complaint: ED Chest Pain Stated complaint: chest pain Time Seen by Provider: 02/06/19 21:08 Source: patient Mode of arrival: ambulatory Limitations: no limitations Nursing Notes Reviewed: Yes Vital Signs Reviewed: Yes - History of Present Illness HPI Narrative: Attestation note: Patient was seen with the emergency medicine resident/nurse practitioner/physician scheduling assistant/transitional resident/medical student: Dr. MARIANNE HERNANDEZ. I was present for the significant portions of the performance and interpretation of procedures and EKGs. I have personally performed a face to face evaluation on this patient. I have reviewed and agree with history and physical examination patient management and disposition. 30-year-old male history of severe cardiomyopathy and CHF he was in hospice care no longer he has less than 20% ejection fraction comes in with chest discomfort he feels like there is something in his lungs is afebrile stable vital signsfever sputum is no Rales EKG shows nonspecific ST-T changes but no acute ischemic changes compared to prior EKG. Patient getting chest x- ray screening lab. Disposition pending Pain Scale: 8 - Related Data Home Medications Medication Instructions Recorded Confirmed Gabapentin [Neurontin] 600 mg PO TID 07/17/16 05/13/17 Apixaban [Eliquis] 5 mg PO BID 12/21/16 05/13/17 Lisinopril 2.5 mg PO DAILY 12/25/16 05/13/17 Carvedilol 6.25 mg PO BID 03/14/17 05/13/17 Furosemide [Lasix] 80 mg PO DAILY 03/14/17 05/13/17 Naproxen [Naprosyn] 500 mg PO BID 03/14/17 05/13/17 Potassium Chloride 10 meq PO DAILY 05/13/17 05/13/17 Previous Rx's Medication Instructions Recorded Oxycodone HCl/Acetaminophen 1 each PO Q6HR PRN #10 tablet 05/28/17 [Percocet 5-325 mg Tablet] Oxycodone HCl/Acetaminophen 1 each PO BID #6 tablet 06/25/17 [Percocet 10-325 mg Tablet] OxyCODONE/APAP 5/325 [Percocet 1 each PO Q6HR PRN #12 tablet 11/16/17 5/325 MG] Allergies Allergy/AdvReac Type Severity Reaction Status Date / Time Penicillins Allergy Anaphylaxis Verified 05/28/17 02:24 Past Medical History - Past Medical History Medical history: Reports: cardiomyopathy, CHF, DVT, hyperlipidemia, hypertension, myocardial infarction, pulmonary embolus Surgical history: Reports: other ([facility] - 12/2016 - minimal CAD) Psychiatric history: Reports: anxiety, depression - Social History Smoking Status: Current every day smoker Smokeless Tobacco Status: No Alcohol use: Reports: occasionally Drug use: Reports: none Physical Exam - General Limitations: no limitations General appearance: alert, in no apparent distress Course Vital Signs Temperature 98.1 F 02/06/19 21:05 Pulse Rate 92 02/06/19 21:05 Respiratory Rate 18 02/06/19 21:05 Blood Pressure 107/70 02/06/19 21:05 O2 Sat by Pulse Oximetry 99 02/06/19 21:05 Temperature 98.1 F 02/06/19 21:05 Pulse Rate 92 02/06/19 21:05 Respiratory Rate 18 02/06/19 21:05 Blood Pressure 107/70 02/06/19 21:05 O2 Sat by Pulse Oximetry 99 02/06/19 21:05 Oxygen Delivery Oxygen Delivery Room Air
[2019-02-06 21:48] LABS: Basophils # 0.1 K/mcL (0.0-0.2); Basophils % 1.1 %; Eosinophils # 0.6 K/mcL (0.0-0.6); Eosinophils % 8.4 %; Hematocrit 44.6 % (37.5-50.1); Hemoglobin 14.6 g/dL (12.9-16.9); Immature Granulocytes % 0.3 % (0-4); Lymphocytes # 2.2 K/mcL (0.6-4.6); Lymphocytes % 28.9 %; Mean Corpuscular HGB Conc 32.7 g/dL (31.6-35.5); Mean Corpuscular Hemoglobin 30.7 pg (28.0-33.3); Mean Corpuscular Volume 93.7 fL (83.0-100.0); Mean Platelet Volume 10.3 fL (9.4-12.4); Monocytes # 0.8 K/mcL (0.0-1.3); Monocytes % 10.6 %; Neutrophils # 3.8 K/mcL (1.6-8.9); Platelet Count 247 K/mcL (140-400); Red Blood Count 4.76 M/mcL (4.19-5.50); Red Cell Distribution Width 13.5 % (11.5-14.5); Segmented Neutrophils % 50.7 %; White Blood Count 7.5 K/mcL (4.3-11.1)
[2019-02-06 22:11] LABS: BUN/Creatinine Ratio 24 (6-26); Blood Urea Nitrogen 13 mg/dL (6-20); Calcium 9.2 mg/dL (8.6-10.3); Carbon Dioxide 30 mEq/L (23-29); Chloride 99 mEq/L (98-107); Glucose 91 mg/dL (70-105); Osmolality,Calculated 280 (280-300); Potassium 3.7 mEq/L (3.5-5.1); Sodium 135 mEq/L (136-145); Troponin I < 0.03 ng/mL (< 0.04); eGFR For African Americans > 60 (> 60); eGFR For Non-African Americans > 60 (> 60)
[2019-02-06] MEDS ORDERED: *HR* FentaNYL (PF) 100 MCG/2 ML VIAL IVP ONE ×2 (22:20→23:41)
[2019-02-06 23:09] LABS: INR 1.3; Prothrombin Time 14.1 Seconds (9.4-12.1)
[2019-02-06] MEDS ORDERED: *HR* Midazolam HCl 2 MG/2 ML VIAL IVP ONE (23:41)
[2019-02-07] MEDS ORDERED: *HR* Midazolam HCl 5 MG/5 ML VIAL IVP ONE ×3 (00:04→01:00)
[2019-02-07] MEDS ORDERED: *HR* FentaNYL (PF) 100 MCG/2 ML VIAL ONE (00:05)
[2019-02-07] MEDS ORDERED: *HR* FentaNYL (PF) 100 MCG/2 ML VIAL IVP ONE (00:33)
[2019-02-07] MEDS ORDERED: *HR* Midazolam HCl 2 MG/2 ML VIAL IVP ONE (00:34)
[2019-02-07] MEDS ORDERED: Naloxone 0.4 MG/ML INJ IVP PRN (02:12)
[2019-02-07] MEDS ORDERED: *HR* HYDROcodone/Acet 5/325 mg TABLET PO PRN (02:27)
[2019-02-07] MEDS ORDERED: Acetaminophen 325 MG TABLET PO PRN (02:27)
[2019-02-07] MEDS: *HR* OxyCODONE Immed Rel 5 MG TABLET PO PRN ×2 (02:39→09:11)
--- NOTE | 2019-02-07 02:44 | Internal Med History&Physical ---
Date of Encounter: 02/07/19 Time of Encounter: 01:30 Internal Medicine - H&P: HPI Chief complaint: left hydropneumothorax Admitted From: Emergency Dept Plans for Post Hospital Care: Home History of present illness: Mr. Welch is a 38 year old male Patient presented to the ER with fluid sensation around his left lung. He states he has had a few week history of chest discomfort but over the last 3 days he has a feeling like there is fluid moving around inside of his chest. He particularly feels that with bending over as well as breathing. He is a patient formally on hospice, but is now full code. He has a long history of heart failure with a last measured ejection fraction of 20%. Patient also has a history of shingles on the posterior head and neck as well as a brown recluse spider bite resulting in a large area of nerve damage and skin changes. Because of his worsening chest discomfort he came to the emergency room for further evaluation. In the emergency room patient's initial vital signs were within normal limits. CBC: Within normal limits BMP: Within normal limits Initial troponin undetectable BNP 460 INR 1.3 Magnesium 2.0 A chest x-ray showed moderate sized hydropneumothorax without associated tension. This finding was discussed with the patient and initially he was hesitant about chest tube. He eventually agreed to chest tube placement in the emergency room which was successfully completed. Patient was then admitted to the hospital for further monitoring. Upon my evaluation, patient was resting comfortably and not ER bed in no acute distress. I examined the patient after the chest tube had been placed. He states that he has some pain around the chest tube site, but denies abdominal pain, nausea, vomiting, diarrhea and constipation. He says with regards to the fluid he could hear and feel it inside of his body, and it made him short of breath. He states that he has a family history of diabetes, heart disease and kidney failure. He is a full code. Past Med Surg Social Fam HX - Past Medical History Medical history: cardiomyopathy, CHF, DVT, hyperlipidemia, hypertension, myocardial infarction, pulmonary embolus Additional medical history: infection to right side of scalp Psychiatric history: anxiety, depression - Past Surgical History Surgical History: other ([facility] - 12/2016 - minimal CAD) Additional surgical history: Heart Cath-november 2016- at [facility] - Social History Smoking Status: Current every day smoker Smokeless Tobacco Status: No Alcohol use: occasionally Drug use: none - Family History Mother Family Member Ethnicity: Non- Living Status: Still Living Hx Family Cardiac Disorders: No Hx Family Respiratory Disorders: No Hx Family Cancer: Yes (Uterine.) Hx Family GI Disorders: No Hx Family Endocrine Disorder: No Hx Family Neuromuscular Disorders: No Hx Family Neurologic Disorders: No Hx Family HEENT Disorders: No Internal Medicine - H&P: Meds Gabapentin [Neurontin] 600 mg PO TID 07/17/16 [History] Apixaban [Eliquis] 5 mg PO BID 12/21/16 [History] Lisinopril 2.5 mg PO DAILY 12/25/16 [History] Carvedilol 6.25 mg PO BID 03/14/17 [History] Furosemide [Lasix] 80 mg PO DAILY 03/14/17 [History] Naproxen [Naprosyn] 500 mg PO BID 03/14/17 [History] Oxycodone HCl/Acetaminophen [Percocet 5-325 mg Tablet] 1 each PO Q6HR PRN #10 tablet 05/28/17 [Rx] Oxycodone HCl/Acetaminophen [Percocet 10-325 mg Tablet] 1 each PO BID #6 tablet 06/25/17 [Rx] OxyCODONE/APAP 5/325 [Percocet 5/325 MG] 1 each PO Q6HR PRN #12 tablet 07/10/17 [Rx] Torsemide [Demadex] 80 mg PO DAILY 02/07/19 [History] Allergy/AdvReac Type Severity Reaction Status Date / Time Penicillins Allergy Anaphylaxis Verified 05/28/17 02:24 All Systems PM: A 10-system review of systems was performed and is negative for pertinent findings except as documented above in the HPI. - Constitutional Vitals: Temp Pulse Resp BP Pulse Ox 98.1 F 88 16 101/73 97 02/06/19 21:05 02/06/19 23:09 02/06/19 23:09 02/06/19 23:09 02/06/19 23:09 General appearance: Present: cooperative, A&O X 3, pleasant, no acute distress, answers questions appropriately Exam: - - Head Head exam: Present: normal inspection - Eye Eye exam: Present: EOMI, normal appearance - Respiratory Respiratory exam: Present: chest wall tenderness, CTAB. Absent: accessory muscle use, rales, rhonchi, wheezes Additional comments: Examined post chest tube placement. Tenderness around chest tube site - Cardiovascular Cardiovascular exam: Present: RRR. Absent: diastolic murmur, systolic murmur - GI/Abdominal GI/Abdominal exam: Present: normal bowel sounds, soft. Absent: tenderness - Extremities Exam Extremities exam: Present: warm, radial pulses palpable and symmetrical. Absent: calf tenderness, pedal edema, tenderness Additional comments: Difficulty moving left arm due to pain from chest tube - Neurological Exam Neurological exam: Present: no focal deficits, strengths equal and symetr throughout. Absent: motor sensory deficit, facial droop, speech deficit - Skin Skin exam: Present: dry, normal color, warm Internal Med - H&P Results - Labs CBC & Chem 7: 02/06/19 21:26 02/06/19 21:26 Labs: Short CBC 02/06/19 Range/Units 21:26 WBC 7.5 (4.3-11.1) K/mcL Hgb 14.6 (12.9-16.9) g/dL Hct 44.6 (37.5-50.1) % Plt Count 247 (140-400) K/mcL Neutrophils # 3.8 (1.6-8.9) K/mcL BMP 02/06/19 21:26 Sodium 135 L Potassium 3.7 Chloride 99 Carbon Dioxide 30 H BUN 13 Creatinine 0.54 L Glucose 91 Calcium 9.2 Cardiac Enzymes 02/06/19 Range/Units 21:26 Troponin I < 0.03 (< 0.04) ng/mL - Impressions ITS Impressions Chest X-Ray 02/06/19 21:08 IMPRESSION: 1. Moderate left hydropneumothorax with no associated tension. 2. Patchy subsegmental atelectasis in the left lung. D/ / Reggie Roberson MD / Reggie Roberson MD Interpreting Provider: Reggie Roberson MD Chest X-Ray 02/07/19 00:44 IMPRESSION: Left-sided chest tube in situ. Left effusion. Small amount of extrapleural air on the left with opacity in the left hemithorax likely atelectasis and post procedural change. D/ / Candie Gerardo MD / Candie Gerardo MD Interpreting Provider: Candie Gerardo MD Chest X-Ray 02/07/19 01:05 IMPRESSION: The left-sided chest tube is still looped in the left upper hemithorax. Small amount of extrapleural air on the left is noted with subcutaneous emphysema left lateral chest wall in left effusion. Probable left atelectasis. D/ / Candie Gerardo MD / Candie Gerardo MD Interpreting Provider: Candie Gerardo MD - Assessment and Plan (1) Hydropneumothorax Current Visit: Yes Status: Acute Assessment and plan: Chest tube placed in the left side. Will send the pleural fluid for studies. Initial position of the chest tube was readjusted in the ER prior to t ransferring to the floor. Obtain pleural cell count, culture, cytology, protein, LDH NPH. Pain management as needed Follow-up results of laboratory analysis. Oxygen supplementation as needed Bedside pulse oximetry (2) Atypical chest pain Current Visit: Yes Status: Acute Assessment and plan: Secondary to hydropneumothorax. Chest tube has been placed in the emergency room. Continue to monitor Cardiac monitoring (3) CHF (congestive heart failure) Current Visit: Yes Status: Acute Assessment and plan: Patient has history of congestive heart failure. Last echocardiogram from 2017 demonstrated an ejection fraction of 20%. Repeat echocardiogram in the morning Qualifiers: Heart failure type: unspecified Heart failure chronicity: chronic Qualified Code(s): I50.9 - Heart failure, unspecified (4) Current nicotine use Current Visit: Yes Status: Acute Assessment and plan: Nicotine patch PRN (5) DVT prophylaxis Current Visit: No Status: Chronic Assessment and plan: SCDs - Time Spent With Patient Total time spent is greater than 50% in coordination of care (as documented) at patient's floor/unit and/or counseling patient: Greater than 35 minutes
[2019-02-07] MEDS ORDERED: Nicotine 21 MG PATCH.TD24 TD PRN (03:21)
--- NOTE | 2019-02-07 09:46 | Event Note ---
Date of Encounter: 02/07/19 Time of Encounter: 09:40 Patient was seen and examined. Patient is not providing clear history but having some patches in the history. As per patient earlier he was on hospice due to severe cardiac condition but almost 1 month ago he is off from hospitalist service and got hooked up with primary care physician for pain management of headache due to underlying history of shingles and brown recluse spider bite. But also seems like he had fired with primary care physician while he was trying to wean down on pain medication. History is not clear and the weekend not able to access primary care physician office or hospice care team. At present patient is full code. He is not taking any prescription medication for cardiac condition or any other medical illness. He supposed to follow with some honey processor soon but not able to tell where. Patient is stated that earlier he was under care of honey processor at [facility] but got discharged from the care due to some disagreement. Upon my evaluation patient is hemodynamically stable asking for pain medication and getting irritable to nursing staff also. Consulted cardiothoracic surgeon for chest tube management. Will follow the test report sent for pleural sample. Will try to contact pharmacy to no current medication list. Repeat echocardiogram ordered. Will also consult cardiology-patient is not willing to see cardiology at this time.
--- NOTE | 2019-02-07 10:41 | Cardiothoracic Consult Note ---
Date of Encounter: 02/07/19 Time of Encounter: 10:39 Assessment and Plan (1) Spontaneous pneumothorax Current Visit: Yes Status: Acute The assessment and plan as outlined above was discussed with the patient and/or family members who expressed understanding and agreement. All questions were answered. I have rounded with the nurse and hospitalist. will check a chest xray in am. continue chest tube to suction through today. (2) Intractable pain Current Visit: No Status: Acute The assessment and plan as outlined above was discussed with the patient and/or family members who expressed understanding and agreement. All questions were answered. patient can have lidoderm patch. hospitalist will check with pcp/pharm regarding medications. he states he is using liquid morphine everyday but it doesn't provide any pain relief. - History of Present Illness Consult date: 02/07/19 Requesting physician: Melida Swan Consult reason: pnthx Chief complaint: cp and sob History of present illness: Mr. Welch is a 38 year old male who presented to [facility] after a few weeks of atypical left sided chest pain with increasing sob over the last 3 days. A chest xray demonstrated a small left sided pnthx and a chest tube was placed by the ER. He continues to have chest wall pain but his sob has resolved. Past Med Surg Social Fam HX - Past Medical History Medical history: cardiomyopathy, CHF, DVT, hyperlipidemia, hypertension, myocardial infarction, pulmonary embolus Additional medical history: infection to right side of scalp Psychiatric history: anxiety, depression - Past Surgical History Surgical History: other Additional surgical history: Heart Cath-november 2016- at [facility] - Social History Smoking Status: Current every day smoker Smokeless Tobacco Status: No Alcohol use: occasionally Drug use: none - Family History Mother Family Member Ethnicity: Non- Living Status: Still Living Hx Family Cardiac Disorders: No Hx Family Respiratory Disorders: No Hx Family Cancer: Yes (Uterine.) Hx Family GI Disorders: No Hx Family Endocrine Disorder: No Hx Family Neuromuscular Disorders: No Hx Family Neurologic Disorders: No Hx Family HEENT Disorders: No Medications and Allergies Gabapentin [Neurontin] 600 mg PO TID 07/17/16 [History] Apixaban [Eliquis] 5 mg PO BID 12/21/16 [History] Lisinopril 2.5 mg PO DAILY 12/25/16 [History] Carvedilol 6.25 mg PO BID 03/14/17 [History] Furosemide [Lasix] 80 mg PO DAILY 03/14/17 [History] Naproxen [Naprosyn] 500 mg PO BID 03/14/17 [History] Oxycodone HCl/Acetaminophen [Percocet 5-325 mg Tablet] 1 each PO Q6HR PRN #10 tablet 05/28/17 [Rx] Oxycodone HCl/Acetaminophen [Percocet 10-325 mg Tablet] 1 each PO BID #6 tablet 06/25/17 [Rx] OxyCODONE/APAP 5/325 [Percocet 5/325 MG] 1 each PO Q6HR PRN #12 tablet 07/10/17 [Rx] Torsemide [Demadex] 80 mg PO DAILY 02/07/19 [History] Allergy/AdvReac Type Severity Reaction Status Date / Time Penicillins Allergy Anaphylaxis Verified 05/28/17 02:24 All Systems Review: The remainder of the systems were reviewed and are negative - Constitutional Constitutional: fatigue, lethargy, weight loss (approx 20 pounds over the last month ) - Musculoskeletal Musculoskeletal: muscle weakness, myalgias, other (neck pain ) - Integumentary Integumentary: other (old wound on back of neck ) - Psychiatric Psychiatric: anxiety, depression - Hematological/Lymphatic Hematologic/Lymphatic: blood thinners Physical Examination Vital Signs, Last 4 Hours Temp Pulse Resp BP Pulse Ox 02/07/19 07:09 98.1 F 86 16 102/70 94 General: Conversant, No Apparent Distress HEENT: Normocephaly, Trachea midline, Other (wound on back of neck ) Cardiac: Reg Rate and Rhythm, Normal S1 and S2, No Murmur Lungs: Normal Breath Sounds Neuro: Alert and responsive, No focal deficits noted, Cranial nerves intact, Motor nerves intact Vascular: Normal capillary refill Abdomen: Soft, Non-tender Skin: Other (wound on back of neck ) Musculoskeletal: Other (intercostal mm waisting ) Extremities: No Clubbing, No Cyanosis, No Edema, Normal Pulses Results 02/06/19 21:26 02/06/19 21:26 Lab Results, Last 24 hours 02/06/19 02/06/19 02/06/19 21:22 21:26 21:26 WBC 7.5 Hgb 14.6 Hct 44.6 Plt Count 247 INR 1.3 Sodium 135 L Potassium 3.7 Chloride 99 Carbon Dioxide 30 H BUN 13 Creatinine 0.54 L Glucose 91 Calcium 9.2 Magnesium 2.0 Troponin I < 0.03 B-Natriuretic Peptide 02/06/19 21:26 WBC Hgb Hct Plt Count INR Sodium Potassium Chloride Carbon Dioxide BUN Creatinine Glucose Calcium Magnesium Troponin I B-Natriuretic Peptide 460 H - Imaging Chest Xray: image reviewed Consult Discharge Plan - Plan Referrals: NONE,PCP [Primary Care Provider] -
[2019-02-07 10:53] LABS: Hematocrit 44.6 % (37.5-50.1); Hemoglobin 14.5 g/dL (12.9-16.9); Mean Corpuscular HGB Conc 32.5 g/dL (31.6-35.5); Mean Corpuscular Hemoglobin 29.9 pg (28.0-33.3); Mean Platelet Volume 10.2 fL (9.4-12.4); Platelet Count 200 K/mcL (140-400); Red Blood Count 4.85 M/mcL (4.19-5.50); Red Cell Distribution Width 13.4 % (11.5-14.5); White Blood Count 8.3 K/mcL (4.3-11.1)
[2019-02-07 11:10] LABS: Lactate Dehydrogenase 151 Units/L (140-271); Total Protein 7.8 g/dL (6.4-8.9)
[2019-02-07 11:11] LABS: BUN/Creatinine Ratio 31 (6-26); Blood Urea Nitrogen 12 mg/dL (6-20); Calcium 9.1 mg/dL (8.6-10.3); Carbon Dioxide 26 mEq/L (23-29); Chloride 99 mEq/L (98-107); Glucose 90 mg/dL (70-105); Osmolality,Calculated 285 (280-300); Potassium 3.8 mEq/L (3.5-5.1); Sodium 138 mEq/L (136-145); eGFR For African Americans > 60 (> 60); eGFR For Non-African Americans > 60 (> 60)
[2019-02-07] MEDS ORDERED: *HR* OxyCODONE Immed Rel 15 MG TABLET PO PRN (14:15)
[2019-02-07] MEDS ORDERED: Haloperidol Lactate 5 MG/ML VIAL IVP STA (14:21)
[2019-02-07] MEDS: Gabapentin 300 MG CAPSULE PO SCH ×2 (15:28→20:40)
[2019-02-07] MEDS: *HR* OxyCODONE Immed Rel 15 MG TABLET PO SCH ×2 (15:44→20:41)
[2019-02-08] MEDS: *HR* OxyCODONE Immed Rel 15 MG TABLET PO SCH ×7 (00:01→23:57)
[2019-02-08] MEDS ORDERED: Perflutren Lipid Microsphere 1.3 ML in 0.9 % Sodium Chloride 8.7 ML IVP ONE (06:42)
[2019-02-08 07:43] LABS: Amphetamine Screen,Urine Negative ng/mL (Cutoff=1000); Barbiturate Screen,Urine Negative ng/mL (Cutoff=200); Benzodiazepines Screen,Urine Positive ng/mL (Cutoff=200); Cannabinoid Screen,Urine Positive ng/mL (Cutoff = 50); Cocaine Screen,Urine Negative ng/mL (Cutoff= 300); Opiate Screen,Urine Positive ng/mL (Cutoff=300); Phencyclidine Screen,Urine Negative ng/mL (Cutoff=25)
[2019-02-08] MEDS: Gabapentin 300 MG CAPSULE PO SCH ×3 (07:56→19:55)
[2019-02-08] MEDS ORDERED: Torsemide 20 MG TABLET PO SCH ×2 (09:00→21:00)
--- NOTE | 2019-02-08 11:16 | Cardiothoracic Progress Note ---
Date of Encounter: 02/08/19 Time of Encounter: 11:15 - Assessment and plan (1) Spontaneous pneumothorax Current Visit: Yes Status: Acute The assessment and plan as outlined above was discussed with the patient and/or family members who expressed understanding and agreement. All questions were answered. I have rounded with the nurse. clamp chest tube at midnight tonight. chest xray. in the am. (2) Intractable pain Current Visit: No Status: Acute The assessment and plan as outlined above was discussed with the patient and/or family members who expressed understanding and agreement. All questions were answered. lidoderm patch not helping much. doing well with percocet. - Subjective Interval history: no changes in ros. Vital Signs, Last 4 Hours Temp Pulse Resp BP Pulse Ox 02/08/19 08:00 98.6 F 77 14 98/69 98 Oxgyen Flow Rate Oxygen Flow Rate (LPM) 2 Clinical Data, last 8 Hours Output, Chest Tube Drainage 80 Amount [Left Lateral Chest #1] Output, Urine Amount 700 Output, Urine Amount 0 Weight 02/06/19 02/07/19 02/08/19 23:59 23:59 23:59 Weight 68.039 kg 65 kg 64.7 kg - Physical Examination General: Conversant, No Apparent Distress HEENT: Normocephaly Cardiac: Reg Rate and Rhythm, Normal S1 and S2 Incision: No signs of infection, Dry/intact dressing Chest tubes: Minimal drainage Lungs: Normal Breath Sounds Neuro: Alert and responsive, No focal deficits noted, Cranial nerves intact, Motor nerves intact Abdomen: Soft - Labs 02/07/19 10:34 02/07/19 10:34 - Imaging Chest Xray: image reviewed Consult Discharge Plan - Plan Referrals: NONE,PCP [Primary Care Provider] -
--- NOTE | 2019-02-08 12:33 | Internal Med Progress Note ---
Hospitalist Progress Note - Encounter Date of Encounter: 02/08/19 Time of Encounter: 12:30 - Subjective Interval History: Pt still complaining of pain in L side at site of chest tube placement, denies bleeding, no SOB, no N/V/D. Says his cell phone is outside in his car and that he'd like to go get it, which we will arrange w RN and security to escort pt. - Exam Vitals: Temp Pulse Resp BP Pulse Ox 98.4 F 54 14 93/51 96 02/08/19 12:04 02/08/19 12:04 02/08/19 12:04 02/08/19 12:04 02/08/19 12:04 Exam: General: NAD, good eye contact, appears older than stated age Thoracic: Normal breath sounds b/l, no wheezing or crackles Cardio: Normal S1 and S2, regular rate and rhythm Abdomen: Soft, nontender Extremities: Warm, well perfused. DP pulses 2+ b/l. No edema. Skin: L side chest wall at site of CTx not erythematous or bloody Neuro: Awake, fully oriented. Speech fluent - Summary of Assessment and Plan Summary of Assessment and Plan: Isaac Welch is a 38 M w hx HFrEF 20%, smoker, who p/w L chest discomfort and SOB, found on CXR to have hydropneumothorax for which chest tube was placed. Pneumothorax: improving s/p chest tube, - CT surg following, appreciate rec's to maintain CTx today and place to water seal overnight HFrEF 20%: euvolemic, continue home torsemide Smoker: nicotine patch, cessation advised Chronic pain: oxycodone 10 q4h prn, gabapentin 600 tid PPx: lovenox FEN: regular, no MIVF Lines: PIV Consults: Code: Full Dispo: patient requires inpatient eval and management at this time. Anticipate 2-3 days. Will be homegoing Internal Medicine: Result - Labs CBC & Chem 7: 02/07/19 10:34 02/07/19 10:34 - ABG Interpretation ABG results: PT/INR, D-dimer PT 14.1 Seconds (9.4-12.1) H 02/06/19 21:22 - Impressions Impressions Chest X-Ray 02/07/19 14:14 IMPRESSION: 1. Stable left apical pneumothorax measuring 11 mm apical pleural separation. 2. Stable appearance of left pleural catheter bending over the medial upper left hemithorax. 3. Stable left pleural effusion with left basilar atelectasis. 4. Cardiomegaly. D/ / Skyler Ellsworth / Skyler Ellsworth Interpreting Provider: Skyler Ellsworth Echocardiogram 02/08/19 03:16 Impressions: LVEF 10-15%. Severely dilated left ventricle. Severe global left ventricular systolic dysfunction. There is no LV thrombus. Mildly dilated and hypokinetic right ventricle. No significant valvular dysfunction. No evidence of pulmonary hypertension identified. Left Ventricular Wall Motion: Rest Echo Findings The apex, apical inferior, mid inferior, basal inferior, apical anterior, mid anterior, basal anterior, apical septal, mid inferior septal, basal inferior septal, apical lateral, mid anterior lateral, basal anterior lateral, mid anterior septal, mid inferior lateral, basal anterior septal and basal inferior lateral carrion were hypokinetic. Findings: Study Quality * Technically adequate exam. ECG Findings * Sinus tachycardia. Left Ventricle * LVEF 10-15%. * Severely dilated left ventricle. * Severe global left ventricular systolic dysfunction. * There is no LV thrombus. Right Ventricle * Mildly dilated right ventricle. * Mild right ventricular hypokinesis. Left Atrium * Moderately dilated left atrium. Right Atrium * Mildly dilated right atrium. Interatrial Septum * No evidence of a PFO by color Doppler. Aortic Valve * Trileaflet aortic valve with normal function. * No aortic regurgitation. * No aortic stenosis. Mitral Valve * Mildly thickened mitral valve leaflets. * Trace mitral regurgitation. * No mitral stenosis. Tricuspid Valve * Normal tricuspid valve structure and function. * Trace tricuspid regurgitation. * No evidence of pulmonary hypertension. Pulmonic Valve * Normal pulmonic valve structure and function. * No pulmonic regurgitation. Aorta * Normally sized aortic root. Pericardium * The pericardium appears normal. IVC * Normal IVC dimensions and inspiratory collapse. Pulmonary Artery * Normal visualized portions of the main pulmonary artery. Chest X-Ray 02/08/19 08:00 IMPRESSION: Chest tube has been repositioned. Prior extrapleural air on the left is not readily identified. Continued left hemithorax opacity and subcutaneous emphysema left lateral chest wall. D/ / Candie Gerardo MD / Candie Gerardo MD Interpreting Provider: Candie Gerardo MD Consult Discharge Plan - Plan Referrals: NONE,PCP [Primary Care Provider] -
[2019-02-08] MEDS: Torsemide 20 MG TABLET PO SCH (19:57)
[2019-02-08] MEDS ORDERED: NON-FORMULARY MEDICATION 1 EACH EACH (Gabapentin 800 MG) PO SCH (21:00)
[2019-02-09] MEDS ORDERED: Lidocaine 4% CREAM (LMX) 5 GM TP PRN (02:19)
[2019-02-09] MEDS: *HR* OxyCODONE Immed Rel 15 MG TABLET PO SCH ×3 (03:53→13:45)
[2019-02-09 07:15] VITALS: BP 109/76
--- NOTE | 2019-02-09 07:41 | Discharge Summary ---
- NOTES TO OUTPATIENT PROVIDER Notes to Outpatient Provider: Needs CT Surg follow up for pleural fluid studies and interval assessment of hydropneumothorax. Orders not resulted at time of discharge: Pending orders 02/07/19 02:15 Glucose,Pleural Fluid [BF] Routine LDH,Pleural Fluid [BF] Routine Total Protein,Pleural Fluid [BF] Routine pH,Pleural Fluid [BF] Routine Cytology [PTH] Routine Cell Count w Diff, Pleural Fld [BF] Routine Culture,Body Fluid [RM] Routine Culture,Anaerobic [RM] Routine Date of Encounter: 02/09/19 Time of Encounter: 07:39 Hospital course: Dear Doctors, I recently had the opportunity to care for this patient during their recent hospital stay at [facility]. Isaac Welch is a 38 M w hx HFrEF 15%, smoker, chronic pain, who presented at time of admission with L-sided chest discomfort and SOB. In the ED, patient found on CXR to have moderate hydropneumothorax for which a chest tube was placed. Patient symptomatically improved. After two days, minimal fluid output and CT surgery clamped tube and then eventually removed it after CXR showed no interval changes. Fluid studies were sent on day of discharge. Dx: Hydropneumothorax Pertinent tests/consults: TTE showing LVEF 10-15% and RV hypokinesis Follow up: Pulm 1-2 weeks Tests pending: Pleural fluid studies Med changes: - patient only takes Torsemide PRN now that his edema is managed - smoking cessation advised and nicotine patches sent to pharmacy - due to chest tube insertion, will provide temporary 3 day supply of narcotics and pt to follow with his primary for any additional narcotics if indicated Mental status: awake, fully oriented Code status: Supervisor Stitching Department spent on discharge: 35 minutes It has been my pleasure participating in this patient's care. Please contact me with any questions or concerns regarding their hospital stay. Sincerely, Jose Eduardo Boyle MD - Discharge Medications Prescriptions: New Nicotine Patch [Nicoderm] 21 mg TD DAILY PRN #30 patch.[email or web address] PRN Reason: Nicotine Cravings Continued Gabapentin 800 mg PO TID fentaNYL [Fentanyl] 50 mcg TP Q72H Lidocaine [Recticare] 1 appl TP QID PRN PRN Reason: Pain OxyCODONE Immed Rel [Roxicodone 10 MG] 10 mg PO Q4H PRN 3 Days #12 tablet PRN Reason: Pain Changed Torsemide [Demadex] 40 mg PO BID PRN #30 PRN Reason: leg swelling Home Medications: Gabapentin 800 mg PO TID 02/08/19 [History] Lidocaine [Recticare] 1 appl TP QID PRN 02/08/19 [History] fentaNYL [Fentanyl] 50 mcg TP Q72H 02/08/19 [History] Nicotine Patch [Nicoderm] 21 mg TD DAILY PRN #30 patch.[email or web address] 02/09/19 [Rx] OxyCODONE Immed Rel [Roxicodone 10 MG] 10 mg PO Q4H PRN 3 Days #12 tablet 02/09/19 [Rx] Torsemide [Demadex] 40 mg PO BID PRN #30 02/09/19 [Rx] Allergies/Adverse Reactions: Allergy/AdvReac Type Severity Reaction Status Date / Time Penicillins Allergy Anaphylaxis Verified 02/08/19 14:01 Date of admission: 02/08/19 17:05 Primary care physician: PCP NONE Consults: 02/07/19 09:36 Consult to Cardiothoracic Surgery [CONS] Routine Consulting Provider: Cardiothoracic Surgery Shannan Reason for Consult: left hydropneumothorax Call Completed: Yes - Constitutional Vitals: Temp Pulse Resp BP Pulse Ox 98 F 109 16 109/76 97 02/09/19 07:12 02/09/19 07:12 02/09/19 07:12 02/09/19 07:12 02/09/19 07:12 Exam: General: NAD, good eye contact, appears older than stated age Thoracic: Normal breath sounds b/l, no wheezing or crackles Cardio: Normal S1 and S2, regular rate and rhythm Abdomen: Soft, nontender Extremities: Warm, well perfused. DP pulses 2+ b/l. No edema. Skin: L side chest wall at site of CTx not erythematous or bloody Neuro: Awake, fully oriented. Speech fluent - Patient Status Disposition: Home, Self-Care Condition: Serious Functional capacity at discharge: independent ambulation Overall status at discharge: patient is progressing back to baseline - Discharge Instructions Follow Up With: NONE,PCP [Primary Care Provider] - Mustapha Ye MD [Partnered Physician] - (1-2 weeks) - Diet and Activity Activity: increase activity as tolerated (no bending/lifting/stretching for 1-2 weeks while your chest tube site heals) Diet: low salt diet
[2019-02-09] MEDS: Gabapentin 300 MG CAPSULE PO SCH (08:33)
[2019-02-09] MEDS: Torsemide 20 MG TABLET PO SCH (08:33)
--- NOTE | 2019-02-09 10:57 | Electrocardiograph Report ---
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
--- NOTE | 2019-02-09 13:08 | Cardiothoracic Progress Note ---
Date of Encounter: 02/09/19 Time of Encounter: 13:07 - Assessment and plan (1) Spontaneous pneumothorax Current Visit: Yes Status: Acute The assessment and plan as outlined above was discussed with the patient and/or family members who expressed understanding and agreement. All questions were answered. removed chest tube. home today per primary. follow up with me in 2 weeks with a chest xray . (2) Intractable pain Current Visit: No Status: Acute The assessment and plan as outlined above was discussed with the patient and/or family members who expressed understanding and agreement. All questions were answered. lidoderm patch not helping much. doing well with percocet. - Subjective Interval history: no changes in ros. Oxgyen Flow Rate Oxygen Flow Rate (LPM) 2 Clinical Data, last 8 Hours Output, Urine Amount 600 Weight 02/07/19 02/08/19 02/09/19 23:59 23:59 23:59 Weight 65 kg 64.7 kg 65.8 kg - Physical Examination General: Conversant, Well developed, Well nourished HEENT: Atraumatic, Normocephaly Cardiac: Reg Rate and Rhythm, Normal S1 and S2 Incision: No signs of infection, Dry/intact dressing Chest tubes: Minimal drainage Lungs: Normal Breath Sounds Neuro: Alert and responsive, No focal deficits noted, Cranial nerves intact - Labs 02/07/19 10:34 02/07/19 10:34 - Imaging Chest Xray: image reviewed Consult Discharge Plan - Plan Referrals: Mustapha Ye MD [Partnered Physician] - (1-2 weeks) NONE,PCP [Primary Care Provider] - Prescriptions: Nicotine Patch [Nicoderm] 21 mg TD DAILY PRN #30 patch.[email or web address] PRN Reason: Nicotine Cravings
[2019-02-09 15:05] LABS: Total Protein,Pleural Fluid 4.5 g/dL
[2019-02-09 15:08] LABS: RBC,Pleural Fluid 0.016 M/mcL
[2019-02-09 15:50] LABS: Appearance of Pleural Fl Cloudy (Clear)
== END 2019-02-09 15:52 | disposition home or self-care (01) | DRG 194 ==
LOC: EMEROOARM 21:02 → 2NENU 21:02 → SUATTDRO 22:45 → 2NENU 02-07 02:20
PROVIDERS: ADMIT Family Medicine; ATTEND Internal Medicine

== ENCOUNTER 2019-02-12 05:28 | Observation (INO) ==
--- NOTE | 2019-02-12 05:40 | Emergency Department Note ---
Disposition Clinical Impression: Chest pain Qualifiers: Chest pain type: unspecified Qualified Code(s): R07.9 - Chest pain, unspecified Pneumothorax Qualifiers: Pneumothorax type: unspecified pneumothorax Qualified Code(s): J93.9 - Pneumothorax, unspecified Disposition: Still a Patient Referrals: NONE,PCP [Primary Care Provider] - Forms: ED Satisfaction Letter Time of Disposition: 07:15 Chest Pain HPI - General Chief Complaint: ED Chest Pain Stated Complaint: chest pain Time Seen by Provider: 02/12/19 05:38 Vital Signs Reviewed: Yes Nursing Notes Reviewed: Yes - History of Present Illness HPI Narrative: 38-year-old male presents to the emergency department with concern for left- sided chest pain. Patient states that he recently had drainage of a pleural effusion. States that he was sent home and has had to use a lot of his pain medications to help with the symptoms. Patient reports that things are not gotten better, and he cannot stand the discomfort. He does report that the chest pain he is having is similar to his previous heart attack. Patient does not have any stents placed. He does have history of congestive heart failure with an echocardiogram with a left ventricular ejection fraction of 10-15% in the setting of a dilated cardiomyopathy. - Related Data Home Medications Medication Instructions Recorded Confirmed Lidocaine [Recticare] 1 appl TP QID PRN 02/08/19 02/12/19 Morphine Oral CONC [Roxanol] 0.25 ml PO Q4HR PRN 02/12/19 02/12/19 Previous Rx's Medication Instructions Recorded Torsemide [Demadex] 40 mg PO BID PRN #30 02/09/19 Allergies Allergy/AdvReac Type Severity Reaction Status Date / Time Penicillins Allergy Anaphylaxis Verified 02/12/19 05:39 All systems ED: reviewed and negative except as stated. Review of Systems: As Per HPI Constitutional: Denies: fever Cardiovascular: Reports: chest pain Respiratory: Reports: dyspnea. Denies: wheezes Gastrointestinal: Denies: abdominal pain, nausea, vomiting Chest Pain PMH - Past Medical History Medical history: Reports: cardiomyopathy, CHF, DVT, hyperlipidemia, hypertension, myocardial infarction, pulmonary embolus Surgical history: Reports: other Psychiatric history: Reports: anxiety, depression - Social History Smoking Status: Current every day smoker Alcohol use: Reports: occasionally Drug use: Reports: none Physical Exam - General General appearance: alert - Head Head exam: normocephalic - Eye Eye exam: Present: EOMI - ENT ENT exam: mucous membranes moist - Neck Neck exam: Present: trachea midline - Chest Chest inspection: Present: symmetric chest wall rise, tenderness (on left side of chest wall to palpation), other (Incision from previous chest tube does not have any erythema or drainage) - Respiratory Respiratory exam: Present: other (Decreased breath sounds on the left side) - Cardiovascular Cardiovascular exam: Present: normal rhythm, tachycardia - Abdominal Exam Abdominal exam: Present: soft, Non-Tender. Absent: distention, guarding, reboun d, rigidity - Extremities Exam Extremities exam: Present: normal capillary refill - Back Exam Back exam: Present: full ROM - Neurological Exam Neurological exam: Present: alert, oriented X3 - Psychiatric Psychiatric exam: Present: normal affect, normal mood - Skin Skin exam: Present: warm, dry, intact Course Vital Signs Temperature 99 F 02/12/19 05:45 Pulse Rate 98 02/12/19 05:45 Respiratory Rate 22 02/12/19 05:45 Blood Pressure 98/75 02/12/19 05:45 O2 Sat by Pulse Oximetry 96 02/12/19 05:45 Temperature 99 F 02/12/19 05:47 Pulse Rate 91 02/12/19 06:00 Respiratory Rate 22 02/12/19 06:00 Blood Pressure 105/74 02/12/19 06:00 O2 Sat by Pulse Oximetry 100 02/12/19 06:00 Oxygen Delivery Oxygen Delivery Room Air Chest Pain - MDM Narrative Medical decision making narrative: 38-year-old male with past medical history of congestive heart failure with ejection fraction 10-15% presents to the emergency department with concern for left-sided chest pain. ECG reveals mild ST segment depressions in lateral leads that are new from previous ECG, but could be consistent with rate dependency. Patient was given aspirin here. Chest x-ray reveals apical pneumothorax that is smaller in size from previous exam. Also noted, small left effusion. At this time, we will believe chest pain is most likely secondary to chest wall pain from chest tube insertion. However, patient is high risk secondary with known dilated cardiomyopathy and previous heart attack. Do not think this is a pulmonary embolism as patient's heart rate has decreased some after administration of pain medication, is the hypoxic, blood pressures are with a typically lie. He also has a lot of chest wall tenderness to palpation secondary from recent chest tube insertion and has remaining apical pneumothorax. Troponin within normal limits. Creatinine normal. Patient to be admitted. Still waiting for lab results at time of shift end. Transfer of care provided to day team, Dr. Eller. Chest X-Ray 02/12/19 05:39 IMPRESSION: Interval removal of left-sided chest tube. Left apical pneumothorax has reduced in size now 6.5 mm. Volume loss on the left is noted with perihilar linear opacities likely atelectasis. Small left effusion is noted. D/ / Candie Gerardo MD / Candie Gerardo MD Interpreting Provider: Candie Gerardo MD - Lab Data Result diagrams: 02/12/19 06:13 02/12/19 06:13 Lab Results 02/12/19 02/12/19 Range/Units 06:13 06:13 WBC 8.4 (4.3-11.1) K/mcL RBC 4.66 (4.19-5.50) M/mcL Hgb 14.2 (12.9-16.9) g/dL Hct 42.2 (37.5-50.1) % MCV 90.6 (83.0-100.0) fL MCH 30.5 (28.0-33.3) pg MCHC 33.6 (31.6-35.5) g/dL RDW 13.3 (11.5-14.5) % Plt Count 228 (140-400) K/mcL MPV 10.7 (9.4-12.4) fL Immature Gran % 0.4 (0-4) % Seg Neutrophils % 61.8 % Lymphocytes % 19.3 % Monocytes % 13.5 % Eosinophils % 4.4 % Basophils % 0.6 % Neutrophils # 5.2 (1.6-8.9) K/mcL Lymphocytes # 1.6 (0.6-4.6) K/mcL Monocytes # 1.1 (0.0-1.3) K/mcL Eosinophils # 0.4 (0.0-0.6) K/mcL Basophils # 0.1 (0.0-0.2) K/mcL Sodium 136 (136-145) mEq/L Potassium 3.3 L (3.5-5.1) mEq/L Chloride 96 L (98-107) mEq/L Carbon Dioxide 28 (23-29) mEq/L BUN 7 (6-20) mg/dL Creatinine 0.44 L (0.70-1.30) mg/dL Est GFR ( Amer) > 60 (> 60) Est GFR (Non-Af Amer) > 60 (> 60) BUN/Creatinine Ratio 16 (6-26) Glucose 93 (70-105) mg/dL Calculated Osmolality 280 (280-300) Calcium 8.9 (8.6-10.3) mg/dL Troponin I < 0.03 (< 0.04) ng/mL - EKG Data EKG attestation: Yes I reviewed and interpreted this EKG. EKG results narrative: 5:36 Heart rate 100 bpm, NC interval 192 ms, QRS duration 107 ms, QT 361 ms, normal axis. Sinus tachycardia. Mild ST depressions in the inferior and lateral leads. Lateral ST depressions are new, inferior are not new. Could be consistent with heart rate of 100. Heart Score - Score History: Moderately Suspicious EKG: Non Specific repolarisation Disturbance Age: Less than 45 Risk Factors: Equal/Greater than 3 risk factor or history of atherosclerotic disease Troponin: Less than normal limit HEART Score Total: 4
[2019-02-12] MEDS ORDERED: *HR* FentaNYL (PF) 100 MCG/2 ML VIAL IVP ONE ×2 (05:51→08:22)
[2019-02-12] MEDS ORDERED: Lidocaine 4% CREAM (LMX) 5 GM TP STA (05:54)
[2019-02-12] MEDS ORDERED: Aspirin 81 MG TAB.CHEW PO STA (05:58)
[2019-02-12] MEDS ORDERED: *HR* Morphine Immed Rel 30 MG TABLET PO STA (06:37)
--- NOTE | 2019-02-12 06:37 | Emergency Department Note ---
Disposition Clinical Impression: Chest pain Qualifiers: Chest pain type: chest pain due to myocardial ischemia Ischemic chest pain type: unspecified angina pectoris type Qualified Code(s): I25.9 - Chronic ischemic heart disease, unspecified Pneumothorax Qualifiers: Pneumothorax type: unspecified pneumothorax Qualified Code(s): J93.9 - Pneumothorax, unspecified Disposition: Admitted As Inpatient Condition: Good Time of Disposition: 07:15 General Adult HPI - General Chief complaint: ED Chest Pain Stated complaint: chest pain Time Seen by Provider: 02/12/19 05:38 Source: patient, EMS Limitations: no limitations Nursing Notes Reviewed: Yes Vital Signs Reviewed: Yes - History of Present Illness Pain Scale: 8 - Related Data Home Medications Medication Instructions Recorded Confirmed Lidocaine [Recticare] 1 appl TP QID PRN 02/08/19 02/12/19 Morphine Oral CONC [Roxanol] 0.25 ml PO Q4HR PRN 02/12/19 02/12/19 Previous Rx's Medication Instructions Recorded Torsemide [Demadex] 40 mg PO BID PRN #30 02/09/19 OxyCODONE Immed Rel [Roxicodone 15 15 mg PO Q4H PRN 4 Days #24 tablet 02/12/19 MG] Allergies Allergy/AdvReac Type Severity Reaction Status Date / Time Penicillins Allergy Anaphylaxis Verified 02/12/19 05:39 Constitutional: Denies: fever Cardiovascular: Reports: chest pain Respiratory: Reports: dyspnea. Denies: wheezes Gastrointestinal: Denies: abdominal pain, nausea, vomiting Past Medical History - Past Medical History Medical history: Reports: cardiomyopathy, CHF, DVT, hyperlipidemia, hypertension, myocardial infarction, pulmonary embolus Surgical history: Reports: other Psychiatric history: Reports: anxiety, depression - Social History Smoking Status: Current every day smoker Smokeless Tobacco Status: No Alcohol use: Reports: occasionally Drug use: Reports: none Physical Exam - General Limitations: no limitations General appearance: alert Course Vital Signs Temperature 99 F 02/12/19 05:45 Pulse Rate 98 02/12/19 05:45 Respiratory Rate 22 02/12/19 05:45 Blood Pressure 98/75 02/12/19 05:45 O2 Sat by Pulse Oximetry 96 02/12/19 05:45 Temperature 98.3 F 02/12/19 11:26 Pulse Rate 102 02/12/19 11:26 Respiratory Rate 16 02/12/19 11:26 Blood Pressure 114/77 02/12/19 11:26 O2 Sat by Pulse Oximetry 98 02/12/19 11:26 Oxygen Delivery Oxygen Delivery Room Air Medical Decision Making - Medical Records Medical records reviewed: Yes I reviewed the patient's medical records. - Lab Data Lab results reviewed: Yes I reviewed the patient's lab results. Result diagrams: 02/12/19 06:13 02/12/19 06:13 Lab Results 02/12/19 02/12/19 02/12/19 Range/Units 06:13 06:13 06:13 WBC 8.4 (4.3-11.1) K/mcL RBC 4.66 (4.19-5.50) M/mcL Hgb 14.2 (12.9-16.9) g/dL Hct 42.2 (37.5-50.1) % MCV 90.6 (83.0-100.0) fL MCH 30.5 (28.0-33.3) pg MCHC 33.6 (31.6-35.5) g/dL RDW 13.3 (11.5-14.5) % Plt Count 228 (140-400) K/mcL MPV 10.7 (9.4-12.4) fL Immature Gran % 0.4 (0-4) % Seg Neutrophils % 61.8 % Lymphocytes % 19.3 % Monocytes % 13.5 % Eosinophils % 4.4 % Basophils % 0.6 % Neutrophils # 5.2 (1.6-8.9) K/mcL Lymphocytes # 1.6 (0.6-4.6) K/mcL Monocytes # 1.1 (0.0-1.3) K/mcL Eosinophils # 0.4 (0.0-0.6) K/mcL Basophils # 0.1 (0.0-0.2) K/mcL Sodium 136 (136-145) mEq/L Potassium 3.3 L (3.5-5.1) mEq/L Chloride 96 L (98-107) mEq/L Carbon Dioxide 28 (23-29) mEq/L BUN 7 (6-20) mg/dL Creatinine 0.44 L (0.70-1.30) mg/dL Est GFR ( Amer) > 60 (> 60) Est GFR (Non-Af Amer) > 60 (> 60) BUN/Creatinine Ratio 16 (6-26) Glucose 93 (70-105) mg/dL Calculated Osmolality 280 (280-300) Calcium 8.9 (8.6-10.3) mg/dL Magnesium 1.7 (1.6-2.6) mg/dL Troponin I < 0.03 (< 0.04) ng/mL B-Natriuretic Peptide 860 H (Less than 100) pg/mL - Radiology Data Radiology results reviewed: Yes I reviewed the patient's radiology results. Chest X-Ray 02/12/19 05:39 IMPRESSION: Interval removal of left-sided chest tube. Left apical pneumothorax has reduced in size now 6.5 mm. Volume loss on the left is noted with perihilar linear opacities likely atelectasis. Small left effusion is noted. D/ / Candie Gerardo MD / Candie Gerardo MD Interpreting Provider: Candie Gerardo MD - EKG Data EKG #1 EKG attestation: Yes I reviewed and interpreted this EKG. EKG results narrative: EKG shows a normal sinus rhythm with ventricular rate of 100. LVH with ST elevation in V2 and V3 and also ST depressions with inverted T waves in V5 and V6. These changes however were noted to be present on previous EKG dated 02/06/2019. Attestation Statement - Attestation Attestation: I, Mumtaz Haile MD, personally evaluated this patient and discussed their management with the resident physician. I reviewed the resident's note and agree with the documented findings, medical decision making, and plan of care. I reviewed the residents documentation and agree with the residents assessment and plan of care. I have personally had face to face time with the patient. I personally supervised and was present for the zaman/critical portions of the following procedures completed by the resident: EKG interpretation. 38-year-old male presents to the emergency department by EMS with complaint of severe left sided chest pain secondary to a recent chest tube. The pain is in the left lateral chest wall. He states it hurts to move or to breathe or to press on the chest wall. Patient was recently in the hospital and had a chest tube on the left. He states that they put the chest tube to drain fluid off his lung however on reviewing his previous x-rays from the recent visit it appears he had a pneumothorax which was the reason for his chest tube. He was discharged from the hospital approximately 3 days ago. He has been taking oxycodone without relief. He also normally uses a Duragesic patch but is out of this. Patient has an extensive history of cardiomyopathy with an ejection fraction of 15%. On examination patient is a well-developed well-nourished male in no acute distress. He is alert and oriented 3. There is no cyanosis or diaphoresis. Patient is pale and appears chronically ill. There is tenderness palpation over the left lateral chest wall. No bony crepitus or subcutaneous emphysema palpable. Breath sounds are markedly decreased on the left. No rales or wheezes noted. Heart regular rate and rhythm. Abdomen soft and nontender with present bowel sounds. EKG shows a normal sinus rhythm with ventricular rate of 100. LVH with ST elevation in V2 and V3 and also ST depressions with inverted T waves in V5 and V6. These changes however were noted to be present on previous EKG dated 02/06/2019. Chest x-ray shows decrease in the residual pneumothorax. Small left effusion. Atelectasis. Labs reviewed and unremarkable. Troponin negative. Hospitalist consulted for admission but has not responded. At morning shift change [facility], Dr. Eller, awaiting consultation with the hospitalist for admission.
[2019-02-12 06:51] LABS: Basophils # 0.1 K/mcL (0.0-0.2); Basophils % 0.6 %; Eosinophils # 0.4 K/mcL (0.0-0.6); Eosinophils % 4.4 %; Hematocrit 42.2 % (37.5-50.1); Hemoglobin 14.2 g/dL (12.9-16.9); Immature Granulocytes % 0.4 % (0-4); Lymphocytes # 1.6 K/mcL (0.6-4.6); Lymphocytes % 19.3 %; Mean Corpuscular HGB Conc 33.6 g/dL (31.6-35.5); Mean Corpuscular Hemoglobin 30.5 pg (28.0-33.3); Mean Corpuscular Volume 90.6 fL (83.0-100.0); Mean Platelet Volume 10.7 fL (9.4-12.4); Monocytes # 1.1 K/mcL (0.0-1.3); Monocytes % 13.5 %; Neutrophils # 5.2 K/mcL (1.6-8.9); Platelet Count 228 K/mcL (140-400); Red Blood Count 4.66 M/mcL (4.19-5.50); Red Cell Distribution Width 13.3 % (11.5-14.5); Segmented Neutrophils % 61.8 %; White Blood Count 8.4 K/mcL (4.3-11.1)
[2019-02-12 06:56] LABS: BUN/Creatinine Ratio 16 (6-26); Blood Urea Nitrogen 7 mg/dL (6-20); Calcium 8.9 mg/dL (8.6-10.3); Carbon Dioxide 28 mEq/L (23-29); Chloride 96 mEq/L (98-107); Glucose 93 mg/dL (70-105); Osmolality,Calculated 280 (280-300); Potassium 3.3 mEq/L (3.5-5.1); Sodium 136 mEq/L (136-145); Troponin I < 0.03 ng/mL (< 0.04); eGFR For African Americans > 60 (> 60); eGFR For Non-African Americans > 60 (> 60)
--- NOTE | 2019-02-12 07:26 | Emergency Department Note ---
Disposition Clinical Impression: Chest pain Qualifiers: Chest pain type: unspecified Qualified Code(s): R07.9 - Chest pain, unspecified Pneumothorax Qualifiers: Pneumothorax type: unspecified pneumothorax Qualified Code(s): J93.9 - Pneumothorax, unspecified Disposition: Admitted As Inpatient Condition: Fair Referrals: NONE,PCP [Primary Care Provider] - Forms: ED Satisfaction Letter Time of Disposition: 07:30 General Adult HPI - General Chief complaint: ED Chest Pain Stated complaint: chest pain Time Seen by Provider: 02/12/19 05:38 Source: patient, EMS Limitations: no limitations - History of Present Illness Pain Scale: 8 - Related Data Home Medications Medication Instructions Recorded Confirmed Lidocaine [Recticare] 1 appl TP QID PRN 02/08/19 02/12/19 Morphine Oral CONC [Roxanol] 0.25 ml PO Q4HR PRN 02/12/19 02/12/19 Previous Rx's Medication Instructions Recorded Torsemide [Demadex] 40 mg PO BID PRN #30 02/09/19 Allergies Allergy/AdvReac Type Severity Reaction Status Date / Time Penicillins Allergy Anaphylaxis Verified 02/12/19 05:39 Constitutional: Denies: fever Cardiovascular: Reports: chest pain Respiratory: Reports: dyspnea. Denies: wheezes Gastrointestinal: Denies: abdominal pain, nausea, vomiting Past Medical History - Past Medical History Medical history: Reports: cardiomyopathy, CHF, DVT, hyperlipidemia, hypertension, myocardial infarction, pulmonary embolus Surgical history: Reports: other Psychiatric history: Reports: anxiety, depression - Social History Smoking Status: Current every day smoker Smokeless Tobacco Status: No Alcohol use: Reports: occasionally Drug use: Reports: none Physical Exam - General Limitations: no limitations General appearance: alert Course Course Narrative: Patient was received in sign out from the overnight physician Dr. Haile and Dr. Rios. Patient presented to the emergency room with left-sided chest wall pain. Patient was seen recently for hydropneumothorax on the left side spontaneous etiology. A chest tube placed for apical residual pneumothorax. This tube was removed several days ago he is discharged home. Patient been d oing okay at home but never had relief of the pain. Last night the pain progressively became worse and the patient decided to come into the emergency room for evaluation. Patient denies any new falls trauma or injury. He does have a history of stress-induced cardiomyopathy according to him with an EF of 10%. He does not have a pacemaker defibrillator in place at this time. Patient is provided with appropriate analgesic. He is somnolent in the room and answers questions appropriately. His pain is better controlled. All the symptoms are reproducible with palpation left chest wall. Lungs are clear. Apical diminished breath sounds are noted. Hospitalist was paged prior to my arrival to my shift. The patient is still waiting for evaluation of this time. Once the hospitals calls back I will discuss the described previously evaluation as well as a concern this time. A repeat physical exam at this point appears to be stable. We will continue to monitor here until admission process is completed. - Reevaluation(s) Reevaluation #1: Patient was discussed and reviewed with the hospitalist Dr. Hollis. The most recent echocardiogram as well as the surgical intervention and management were discussed and reviewed. EKG was also reviewed directly here in the emergency room by myself and the accepting physician. No acute signs of myocardial infarction but there is ST segment depressions consistent with previous evaluation. Patient was appropriately managed with pain control here considering all the symptoms appear to be secondary to post surgical intervention. Patient will be monitored here in the emergency department until admission process is completed. No other questions concerns or recommendations noted Time: 08:59 Vital Signs Temperature 99 F 02/12/19 05:45 Pulse Rate 98 02/12/19 05:45 Respiratory Rate 22 02/12/19 05:45 Blood Pressure 98/75 02/12/19 05:45 O2 Sat by Pulse Oximetry 96 02/12/19 05:45 Temperature 99 F 02/12/19 05:47 Pulse Rate 89 02/12/19 08:13 Respiratory Rate 17 02/12/19 08:13 Blood Pressure 94/66 02/12/19 08:13 O2 Sat by Pulse Oximetry 96 02/12/19 08:13 Oxygen Delivery Oxygen Delivery Room Air Medical Decision Making - MDM Narrative Medical decision making narrative: Of chest pain, pneumothorax - Medical Records Medical records reviewed: Yes I reviewed the patient's medical records. - Lab Data Lab results reviewed: Yes I reviewed the patient's lab results. Result diagrams: 02/12/19 06:13 02/12/19 06:13 Lab Results 02/12/19 02/12/19 02/12/19 Range/Units 06:13 06:13 06:13 WBC 8.4 (4.3-11.1) K/mcL RBC 4.66 (4.19-5.50) M/mcL Hgb 14.2 (12.9-16.9) g/dL Hct 42.2 (37.5-50.1) % MCV 90.6 (83.0-100.0) fL MCH 30.5 (28.0-33.3) pg MCHC 33.6 (31.6-35.5) g/dL RDW 13.3 (11.5-14.5) % Plt Count 228 (140-400) K/mcL MPV 10.7 (9.4-12.4) fL Immature Gran % 0.4 (0-4) % Seg Neutrophils % 61.8 % Lymphocytes % 19.3 % Monocytes % 13.5 % Eosinophils % 4.4 % Basophils % 0.6 % Neutrophils # 5.2 (1.6-8.9) K/mcL Lymphocytes # 1.6 (0.6-4.6) K/mcL Monocytes # 1.1 (0.0-1.3) K/mcL Eosinophils # 0.4 (0.0-0.6) K/mcL Basophils # 0.1 (0.0-0.2) K/mcL Sodium 136 (136-145) mEq/L Potassium 3.3 L (3.5-5.1) mEq/L Chloride 96 L (98-107) mEq/L Carbon Dioxide 28 (23-29) mEq/L BUN 7 (6-20) mg/dL Creatinine 0.44 L (0.70-1.30) mg/dL Est GFR ( Amer) > 60 (> 60) Est GFR (Non-Af Amer) > 60 (> 60) BUN/Creatinine Ratio 16 (6-26) Glucose 93 (70-105) mg/dL Calculated Osmolality 280 (280-300) Calcium 8.9 (8.6-10.3) mg/dL Magnesium 1.7 (1.6-2.6) mg/dL Troponin I < 0.03 (< 0.04) ng/mL B-Natriuretic Peptide 860 H (Less than 100) pg/mL - Radiology Data Radiology results reviewed: Yes I reviewed the patient's radiology results.
[2019-02-12 07:36] LABS: Magnesium 1.7 mg/dL (1.6-2.6)
--- NOTE | 2019-02-12 09:32 | Internal Med History&Physical ---
Date of Encounter: 02/12/19 Time of Encounter: 09:04 Internal Medicine - H&P: HPI Chief complaint: pain on left side Admitted From: Emergency Dept Plans for Post Hospital Care: Home History of present illness: Mr. Welch is a 38 year old male with PMHx of cardiomyopathy, CHFrEF 15%, HLD, HTN, PR, hx of PE. Patient was recently admitted 02/07-02/09 after being found to have a left hydropneumothorax and had chest tube placed. patient had minimal fluid output and had chest tube removed by CT surgery. He was discharged on temporary 3 day supply of narcotics (fentanyl 50mcg TP Q72H, lidocaine patch, roxicodone 10mg q4H PRN). patient returns today for increased pain at the left side of his chest wall where he had chest tube placed previously. He states that he was perviously on hospice care for about a year and a half. He was with [facility] and then was discharged from hospice because he was told that he was "not sick enough." He would like to be established with a new hospice service but does not know where he can go for these resources. He also states that he was evaluated at [facility] for heart transplant and was told he is not a candidate. patient denies nausea, vomiting, diarrhea, fevers, chills. he reports chest wall pain and intermittent shortness of breath. Past Med Surg Social Fam HX - Past Medical History Medical history: cardiomyopathy, CHF, DVT, hyperlipidemia, hypertension, myocardial infarction, pulmonary embolus Additional medical history: infection to right side of scalp Psychiatric history: anxiety, depression - Past Surgical History Surgical History: other Additional surgical history: chest tube. heart cath no stent - Social History Smoking Status: Current every day smoker Smokeless Tobacco Status: No Alcohol use: occasionally Drug use: none - Family History Mother Family Member Ethnicity: Non- Living Status: Still Living Hx Family Cardiac Disorders: No Hx Family Respiratory Disorders: No Hx Family Cancer: Yes (Uterine.) Hx Family GI Disorders: No Hx Family Endocrine Disorder: No Hx Family Neuromuscular Disorders: No Hx Family Neurologic Disorders: No Hx Family HEENT Disorders: No Internal Medicine - H&P: Meds Lidocaine [Recticare] 1 appl TP QID PRN 02/08/19 [History] Torsemide [Demadex] 40 mg PO BID PRN #30 02/09/19 [Rx] Morphine Oral CONC [Roxanol] 0.25 ml PO Q4HR PRN 02/12/19 [History] Allergy/AdvReac Type Severity Reaction Status Date / Time Penicillins Allergy Anaphylaxis Verified 02/12/19 05:39 All Systems PM: A 10-system review of systems was performed and is negative for pertinent findings except as documented above in the HPI. - Constitutional Constitutional: as per HPI - EENT Eyes: as per HPI Ears: as per HPI Nose, mouth and throat: as per HPI - Breasts Breasts: as per HPI - Cardiovascular Cardiovascular ROS IM: as per HPI - Respiratory Respiratory: as per HPI - Gastrointestinal Gastrointestinal: as per HPI - Genitourinary Genitourinary ROS male: as per HPI - Musculoskeletal Musculoskeletal ROS IM: as per HPI - Integumentary Integumentary IM: as per HPI - Neurological Neurological ROS: as per HPI - Psychiatric Psychiatric: as per HPI - Endocrine Endocrine IM: as per HPI - Hematologic/Lymphatic Hematologic/Lymphatic: as per HPI - Allergic/Immunologic Allergic/Immunologic: as per HPI - Constitutional Vitals: Temp Pulse Resp BP Pulse Ox 99 F 89 17 94/66 96 02/12/19 05:47 02/12/19 08:13 02/12/19 08:13 02/12/19 08:13 02/12/19 08:13 General appearance: Present: A&O X 3, pleasant, no acute distress, answers questions appropriately Exam: alert and oriented x3 - Head Head exam: Present: atraumatic Additional comments: has area of patchy hair loss on posterior right side of the head with white skin from prior spider bite. - Neck Neck exam general surgery: Present: supple, trachea midline - Respiratory Respiratory exam: Present: CTAB - Cardiovascular Cardiovascular exam: Present: RRR, +S1, +S2. Absent: gallop, rubs, systolic murmur - GI/Abdominal GI/Abdominal exam: Present: normal bowel sounds, soft. Absent: distended, tenderness - Extremities Exam Extremities exam: Absent: cyanotic, pedal edema - Neurological Exam Neurological exam: Present: alert, oriented X3, no focal deficits. Absent: facial droop - Psychiatric Psychiatric exam: Present: normal affect, normal mood Internal Med - H&P Results - Labs CBC & Chem 7: 02/12/19 06:13 02/12/19 06:13 Labs: Short CBC 02/12/19 Range/Units 06:13 WBC 8.4 (4.3-11.1) K/mcL Hgb 14.2 (12.9-16.9) g/dL Hct 42.2 (37.5-50.1) % Plt Count 228 (140-400) K/mcL Neutrophils # 5.2 (1.6-8.9) K/mcL BMP 02/12/19 06:13 Sodium 136 Potassium 3.3 L Chloride 96 L Carbon Dioxide 28 BUN 7 Creatinine 0.44 L Glucose 93 Calcium 8.9 Cardiac Enzymes 02/12/19 Range/Units 06:13 Troponin I < 0.03 (< 0.04) ng/mL - Impressions ITS Impressions Chest X-Ray 02/12/19 05:39 IMPRESSION: Interval removal of left-sided chest tube. Left apical pneumothorax has reduced in size now 6.5 mm. Volume loss on the left is noted with perihilar linear opacities likely atelectasis. Small left effusion is noted. D/ / Candie Gerardo MD / Candie Gerardo MD Interpreting Provider: Candie Gerardo MD - Assessment and Plan (1) Chest pain Current Visit: Yes Status: Acute Assessment and plan: left sided chest wall pain at the site of prior chest tube insertion. chest pain is reproducible upon palpation. History of non ischemic cardiomyopathy with last echo on 02/08/19 showing EF 10-15%. didi was on [facility] prior but was discharged. He wishes to be re enrolled in another hospice service. He states that he was previously evaluated for heart transplant at [facility] and was told he was not a candidate. CXR shows left apical pneumothorax that is now reduced in size to 6.5mm with small left effusion. Plan: admit for pain control nausea control consult to palliative care team to set up hospice-appreciate their help consult to social science research assistant continue home diuresis with torsemide, will change to scheduled dosing to help with pleural effusion Qualifiers: Chest pain type: chest pain due to myocardial ischemia Ischemic chest pain type: unspecified angina pectoris type Qualified Code(s): I25.9 - Chronic isch emic heart disease, unspecified (2) Intractable pain Current Visit: No Status: Acute Assessment and plan: plan as above (3) CHF (congestive heart failure) Current Visit: No Status: Acute Qualifiers: Heart failure type: systolic Heart failure chronicity: chronic Qualified Code(s): I50.22 - Chronic systolic (congestive) heart failure (4) Hypokalemia Current Visit: No Status: Acute Assessment and plan: replaced (5) Alopecia Current Visit: No Status: Chronic (6) DVT prophylaxis Current Visit: No Status: Chronic Assessment and plan: heparin SQ - Time Spent With Patient Total time spent is greater than 50% in coordination of care (as documented) at patient's floor/unit and/or counseling patient:
[2019-02-12] MEDS ORDERED: Naloxone 0.4 MG/ML INJ IVP PRN (11:13)
[2019-02-12] MEDS ORDERED: MOM Conc 10 ML UD.LIQ PO PRN (11:22)
[2019-02-12] MEDS ORDERED: Ondansetron ODT 4 MG TAB.RAPDIS SL PRN (11:22)
[2019-02-12 11:27] VITALS: BP 114/77
[2019-02-12] MEDS ORDERED: *HR* OxyCODONE Immed Rel 15 MG TABLET PO PRN (11:28)
[2019-02-12] MEDS ORDERED: Torsemide 20 MG TABLET PO PRN (11:29)
[2019-02-12] MEDS ORDERED: Lidocaine TOPICAL Soln 50 ML BOTTLE TP PRN (11:29)
[2019-02-12] MEDS ORDERED: Torsemide 20 MG TABLET PO SCH ×2 (11:48→12:00)
[2019-02-12] MEDS ORDERED: Magnesium Oxide 400 MG TABLET PO ONE (11:51)
--- NOTE | 2019-02-12 13:53 | Electrocardiograph Report ---
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
--- NOTE | 2019-02-12 14:33 | Palliative - Consult Note ---
Date of Encounter: 02/12/19 Time of Encounter: 14:00 - Assessment and Plan (1) Generalized pain Current Visit: Yes Status: Acute Assessment and plan: Patient c/o pain to multiple areas, including chest, back and head. Reviewed [facility] report - patient had been prescribed Fentanyl 50mcg patch/Oxycodone/Gabapentin while enrolled with [facility], and Dr. Madhu Roberson has been following in residency clinic. Currently prescribed Oxycodone 15mg which he states is managing his pain adequately. Continue and monitor (2) Goals of care, counseling/discussion Current Visit: Yes Status: Acute Assessment and plan: Patient was enrolled in [facility] for approx 2 yrs, was discharged in November. [facility] has refused to take patient back. He strongly desires to reenroll with hospice, but desires [facility] agency. Referral called and information faxed with pt permission. I received return call stating that there physician would have to do face to face at home with patient, and this likely could not be arranged until next week. Relayed this information to patient, who then selected [facility]. Referral called to Farideh Olivier, and packet faxed. Farideh will be arriving to D/W patient. (3) Dilated cardiomyopathy Current Visit: No Status: Acute Assessment and plan: Echo results from 02/06 demonstrated further reduced EF of 10-15%, Severely dilated left ventricle, and severe global left systolic dysfunction. (4) Palliative care encounter Current Visit: Yes Status: Acute Palliative-CN HPI - Data of Consult Requesting Physician: Martita Hollis Primary Care Provider: PCP NONE - Consult Narrative History of present illness: Mr. Welch is a 38 year old male CC: Martita Hollis - Time Spent with Patient Time: Total time spent is greater than 50% in coordination of care (as documented) at patient's floor/unit and/or counseling patient: Past Med Surg Social Fam HX - Past Medical History Medical history: cardiomyopathy, CHF, DVT, hyperlipidemia, hypertension, myocardial infarction, pulmonary embolus Additional medical history: infection to right side of scalp Psychiatric history: anxiety, depression - Past Surgical History Surgical History: other Additional surgical history: chest tube. heart cath no stent - Social History Smoking Status: Current every day smoker Smokeless Tobacco Status: No Alcohol use: occasionally Drug use: none - Family History Mother Family Member Ethnicity: Non- Living Status: Still Living Hx Family Cardiac Disorders: No Hx Family Respiratory Disorders: No Hx Family Cancer: Yes (Uterine.) Hx Family GI Disorders: No Hx Family Endocrine Disorder: No Hx Family Neuromuscular Disorders: No Hx Family Neurologic Disorders: No Hx Family HEENT Disorders: No Medications and Allergies Lidocaine [Recticare] 1 appl TP QID PRN 02/08/19 [History] Torsemide [Demadex] 40 mg PO BID PRN #30 02/09/19 [Rx] Morphine Oral CONC [Roxanol] 0.25 ml PO Q4HR PRN 02/12/19 [History] Allergy/AdvReac Type Severity Reaction Status Date / Time Penicillins Allergy Anaphylaxis Verified 02/12/19 05:39 - Constitutional Constitutional ROS PAL: decreased appetite, malaise - EENT Additional comments: Negative - Cardiovascular Cardiovascular ROS: chest pain, dyspnea on exertion, leg edema - Respiratory Respiratory: dyspnea on exertion - Gastrointestinal Additional comments: Negative - Genitourinary Additional comments: Negative - Musculoskeletal Musculoskeletal ROS IM: back pain, muscle weakness, neck pain - Integumentary Additional comments: Scarring back of head r/t spider bite - Neurological Neurological ROS: weakness - Psychiatric Psychiatric general PM: other Additional comments: Negative - Endocrine Additional comments: Negative Palliative Care-Exam - Constitutional Vitals: Temp Pulse Resp BP Pulse Ox 98.3 F 102 16 114/77 98 02/12/19 11:26 02/12/19 11:26 02/12/19 11:26 02/12/19 11:26 02/12/19 11:26 General appearance: Present: average body habitus, cooperative, disheveled - Head Head Exam: Present: normal inspection, normocephalic - Eye Eye exam: Present: normal appearance, PERRL - Respiratory Additional comments: Faint inspiratory crackles - Cardiovascular Cardiovascular exam: Present: +S1, +S2 - GI/Abdominal Exam GI/Abdominal exam: Present: normal bowel sounds, soft - Extremities Exam Additional comments: 2-3+ lower extremity edema bilaterally - Neurological Exam Neurological exam: Present: alert, oriented X3, strengths equal and symetr throughout - Psychiatric Psychiatric exam: Present: flat affect - Skin Skin exam: Present: dry, pallor, warm Additional comments: Old scarring to right side back of head Internal Medicine - CN: Reslt - Labs CBC & Chem 7: 02/12/19 06:13 02/12/19 06:13 Labs: Short CBC 02/12/19 Range/Units 06:13 WBC 8.4 (4.3-11.1) K/mcL Hgb 14.2 (12.9-16.9) g/dL Hct 42.2 (37.5-50.1) % Plt Count 228 (140-400) K/mcL Neutrophils # 5.2 (1.6-8.9) K/mcL BMP 02/12/19 06:13 Sodium 136 Potassium 3.3 L Chloride 96 L Carbon Dioxide 28 BUN 7 Creatinine 0.44 L Glucose 93 Calcium 8.9 Cardiac Enzymes 02/12/19 Range/Units 06:13 Troponin I < 0.03 (< 0.04) ng/mL - Impressions Impressions Chest X-Ray 02/12/19 05:39 IMPRESSION: Interval removal of left-sided chest tube. Left apical pneumothorax has reduced in size now 6.5 mm. Volume loss on the left is noted with perihilar linear opacities likely atelectasis. Small left effusion is noted. D/ / Candie Gerardo MD / Candie Gerardo MD Interpreting Provider: Candie Gerardo MD Consult Discharge Plan - Plan Referrals: NONE,PCP [Primary Care Provider] - Palliative Quality Palliative Quality: Screen for Code Status: Yes, Screen for Goals of Care: Yes, Screen for Pain: Yes, If Pain Regimen Started, Initiate Bowel Regimen: NA, Screen for Nausea/Vomitting: Yes Code Status: 02/12/19 11:13 Resuscitation Status: Active [RES] Routine Comment: Resuscitation Status: [id number]
--- NOTE | 2019-02-12 16:16 | Discharge Summary ---
Orders not resulted at time of discharge: Pending orders 02/13/19 04:00 Basic Metabolic Panel AM 0400 Complete Blood Count [HEME] AM 0400 Magnesium AM 0400 Phosphorous AM 0400 Date of Encounter: 02/12/19 Time of Encounter: 16:11 - Discharge Diagnosis (1) Chest pain Priority: Primary Status: Chronic Qualifiers: Chest pain type: chest pain due to myocardial ischemia Ischemic chest pain type: unspecified angina pectoris type Qualified Code(s): I25.9 - Chronic ischemic heart disease, unspecified (2) Intractable pain Priority: Secondary Status: Acute (3) CHF (congestive heart failure) Priority: Secondary Status: Acute Qualifiers: Heart failure type: systolic Heart failure chronicity: chronic Qualified Code(s): I50.22 - Chronic systolic (congestive) heart failure (4) Hypokalemia Priority: Secondary Status: Acute (5) Alopecia Priority: Secondary Status: Chronic (6) DVT prophylaxis Priority: Secondary Status: Chronic Hospital course: Mr. Welch is a 38 year old male with PMHx of cardiomyopathy, CHFrEF 15%, HLD, HTN, [place], hx of PE. Patient was recently admitted 02/07-02/09 after being found to have a left hydropneumothorax and had chest tube placed. patient had minimal fluid output and had chest tube removed by CT surgery. He was discharged on temporary 3 day supply of narcotics. patient returned today for increased pain at the left side of his chest wall where he had chest tube placed previously. He states that he was perviously on hospice care for about a year and a half. He was with [facility] and then was discharged from hospice because he was told that he was "not sick enough." He stated that he would like to be re established with another hospice service. Palliative care service was consulted for help with this. Patient elected [facility] and was accepted to go home with [facility]. he will be given 4 day script of oxycodone prior to discharge. patient eager to go home and agrees with this plan. He was discharged home in stable condition. Of note, he states that he does not have PCP, but has referral in place to establish with [facility]. Discharge discussed with: patient, nurse, social work - Time Spent with Patient Total time spent providing and/or coordinating discharge services: Time spent: Greater than 30 minutes - Discharge Medications Prescriptions: New OxyCODONE Immed Rel [Roxicodone 15 MG] 15 mg PO Q4H PRN 4 Days #24 tablet PRN Reason: Pain Continued Lidocaine [Recticare] 1 appl TP QID PRN PRN Reason: Pain Torsemide [Demadex] 40 mg PO BID PRN #30 PRN Reason: leg swelling Morphine Oral CONC [Roxanol] 0.25 ml PO Q4HR PRN PRN Reason: Pain Home Medications: Lidocaine [Recticare] 1 appl TP QID PRN 02/08/19 [History] Torsemide [Demadex] 40 mg PO BID PRN #30 02/09/19 [Rx] Morphine Oral CONC [Roxanol] 0.25 ml PO Q4HR PRN 02/12/19 [History] OxyCODONE Immed Rel [Roxicodone 15 MG] 15 mg PO Q4H PRN 4 Days #24 tablet 02/12/19 [Rx] Allergies/Adverse Reactions: Allergy/AdvReac Type Severity Reaction Status Date / Time Penicillins Allergy Anaphylaxis Verified 02/12/19 05:39 Date of admission: 02/12/19 08:59 Primary care physician: PCP NONE Consults: 02/12/19 10:17 Consult to Nutrition [CONS] Routine Comment: Consulting Provider: NUTRITION Reason for Dietary Consult: MST Score 02/12/19 10:18 Consult to French Comber [CONS] Routine Reason for SW Consult: hospice and home services. 02/12/19 11:25 Consult to Palliative Care [CONS] Routine Comment: Consulting Provider: Palliative Care Shannan Reason for Consult: EF 10-15% was on [facility] and got discharged. wants hospice again and needs set up with new hospice service. Call Completed: Yes Discharging clinician: Ade Bueno Anticipated date of discharge: 02/12/19 - Constitutional Vitals: Temp Pulse Resp BP Pulse Ox 98.3 F 102 16 114/77 98 02/12/19 11:26 02/12/19 11:26 02/12/19 11:26 02/12/19 11:26 02/12/19 11:26 General appearance: Present: A&O X 3, pleasant, no acute distress, answers questions appropriately Exam: alert and oriented x3 - Head Head exam: Present: atraumatic Additional comments: area of alopecia and skin graft in the right posterior area of the head. - Neck Neck exam general surgery: Present: supple, trachea midline - Respiratory Respiratory exam: Present: CTAB - Cardiovascular Cardiovascular exam: Present: RRR, +S1, +S2 - GI/Abdominal GI/Abdominal exam: Present: normal bowel sounds, soft. Absent: distended, tenderness - Extremities Exam Extremities exam: Absent: cyanotic, pedal edema - Neurological Exam Neurological exam: Present: alert, oriented X3, no focal deficits - Psychiatric Psychiatric exam: Present: normal affect, normal mood - Skin Skin exam: Present: dry, intact. Absent: cyanosis - Patient Status Disposition: Hospice - Home Condition: Good Functional capacity at discharge: independent ambulation Overall status at discharge: patient is progressing back to baseline - Discharge Instructions Instructions: Chest Pain (DC) Follow Up With: [facility] [Outside] (no need for hospital follow up. Patient is going home with hospice) Bj Sterling, TRAINING AND DEVELOPMENT DIRECTOR [Advanced Practice Nurse] - NONE,PCP [Primary Care Provider] - Additional Instructions: please establish with a primary care provider at the residency clinic, since you do not have one. Follow up with your acoustical engineer. continue to take all your medications as prescribed. continue pain medications per hospice recommendations. return to emergency department if you develop fevers, chills, shortness of breath, uncontrolled chest pain. - Diet and Activity Activity: increase activity as tolerated Diet: low fat, low cholesterol, low salt diet
[2019-02-12] MEDS ORDERED: *HR* Heparin 5,000 UNIT/ML VIAL SQ SCH (18:00)
== END 2019-02-12 16:45 | disposition hospice, home (50) ==
LOC: EMEROOARM 05:28 → 2ANU 05:28
PROVIDERS: ADMIT Internal Medicine Nephrology; ATTEND Internal Medicine Nephrology

== ENCOUNTER 2022-05-25 01:22 | Inpatient (IN) ==
[2022-05-25 02:38] LABS: Influenza A PCR Negative (Negative); Influenza B PCR Negative (Negative); Resp. Syncytial Virus PCR Negative (Negative)
[2022-05-25 02:43] LABS: SARS-CoV-2 by PCR (In House) Negative (Negative)
[2022-05-25 02:47] LABS: Basophils % 0.5 %; Eosinophils # 0.1 K/mcL (0.0-0.6); Eosinophils % 1.3 %; Hematocrit 37.7 % (37.5-50.1); Hemoglobin 12.7 g/dL (12.9-16.9); Immature Granulocytes % 0.3 % (0-4); Lymphocytes # 1.7 K/mcL (0.6-4.6); Lymphocytes % 21.6 %; Mean Corpuscular HGB Conc 33.7 g/dL (31.6-35.5); Mean Corpuscular Hemoglobin 30.6 pg (28.0-33.3); Mean Corpuscular Volume 90.8 fL (83.0-100.0); Monocytes # 0.9 K/mcL (0.0-1.3); Monocytes % 11.6 %; Neutrophils # 5.1 K/mcL (1.6-8.9); Platelet Count 160 K/mcL (140-400); Red Blood Count 4.15 M/mcL (4.19-5.50); Red Cell Distribution Width 13.7 % (11.5-14.5); Segmented Neutrophils % 64.7 %; White Blood Count 7.9 K/mcL (4.3-11.1)
[2022-05-25 02:57] LABS: BUN/Creatinine Ratio 28 (6-26); Blood Urea Nitrogen 19 mg/dL (6-20); Calcium 9.6 mg/dL (8.6-10.3); Carbon Dioxide 29 mEq/L (23-29); Chloride 94 mEq/L (98-107); Glucose 110 mg/dL (70-105); Osmolality,Calculated 281 (280-300); Sodium 134 mEq/L (136-145); Troponin I 0.03 ng/mL (< 0.04)
[2022-05-25] MEDS ORDERED: Furosemide 40 MG/4 ML VIAL IVP ONE (04:10)
[2022-05-25 04:27] LABS: Alanine Aminotransferase 22 Units/L (7-52); Albumin 4.1 g/dL (3.5-5.7); Albumin/Globulin Ratio 1.3 (1.1-2.2); Alkaline Phosphatase 103 Units/L (34-104); Aspartate Amino Transferase 25 Units/L (13-39); Bilirubin,Direct 0.3 mg/dL (0.0-0.2); Bilirubin,Indirect 0.9 mg/dL (0.0-1.0); Bilirubin,Total 1.2 mg/dL (0.3-1.0); Globulin 3.2 g/dL (2.4-3.5); Lipase 43 Units/L (11-82); Total Protein 7.3 g/dL (6.4-8.9)
[2022-05-25 04:48] LABS: VBG HCO3 29 mEq/L (21-27); VBG PCO2 39 mmHg (41-51); VBG PH 7.49 pH Units (7.32-7.42); VBG PO2 72 mmHg (25-50)
[2022-05-25 05:08] LABS: Magnesium 1.9 mg/dL (1.6-2.6)
[2022-05-25] MEDS ORDERED: Melatonin 3 MG TABLET PO PRN (05:40)
[2022-05-25] MEDS ORDERED: Naloxone 0.4 MG/ML INJ IVP PRN (05:40)
[2022-05-25] MEDS ORDERED: Ondansetron 4 MG/2 ML VIAL IVP PRN (05:40)
[2022-05-25] MEDS: Spironolactone 12.5 MG TABLET PO SCH (09:44)
[2022-05-25] MEDS: Aspirin Enteric Coated 81 MG Tablet PO SCH (09:44)
[2022-05-25] MEDS: Nicotine 21 MG PATCH.TD24 TD SCH ×2 (09:44→15:35)
[2022-05-25] MEDS: Metoprolol XL (24 HR) Succ 25 MG TAB.ER.24H PO SCH (09:44)
[2022-05-25] MEDS: Furosemide 20 MG/2 ML VIAL IVP SCH ×2 (09:45→20:23)
[2022-05-25] MEDS: predniSONE 20 MG TABLET PO SCH (09:45)
[2022-05-25] MEDS: Budesonide/Formoterol 160/4.5 1 PUFF INH IH SCH ×2 (10:18→21:16)
[2022-05-25] MEDS: Ipratropium/Albuterol Neb 3 ML IH SCH ×4 (10:18→21:16)
[2022-05-25 11:10] LABS: Hematocrit 40.8 % (37.5-50.1); Hemoglobin 13.8 g/dL (12.9-16.9); Immature Granulocytes % 0.3 % (0-4); Lymphocytes % 18.8 %; Mean Corpuscular HGB Conc 33.8 g/dL (31.6-35.5); Mean Corpuscular Hemoglobin 30.9 pg (28.0-33.3); Mean Corpuscular Volume 91.3 fL (83.0-100.0); Mean Platelet Volume 11.6 fL (9.4-12.4); Monocytes % 12.8 %; Platelet Count 163 K/mcL (140-400); Red Blood Count 4.47 M/mcL (4.19-5.50); Red Cell Distribution Width 13.7 % (11.5-14.5); Segmented Neutrophils % 66.5 %; White Blood Count 9.4 K/mcL (4.3-11.1)
[2022-05-25 11:11] LABS: Alanine Aminotransferase 23 Units/L (7-52); Albumin 4.4 g/dL (3.5-5.7); Albumin/Globulin Ratio 1.4 (1.1-2.2); Alkaline Phosphatase 107 Units/L (34-104); Aspartate Amino Transferase 29 Units/L (13-39); BUN/Creatinine Ratio 24 (6-26); Basophils # 0.1 K/mcL (0.0-0.2); Basophils % 0.6 %; Bilirubin,Total 1.7 mg/dL (0.3-1.0); Blood Urea Nitrogen 14 mg/dL (6-20); Calcium 9.7 mg/dL (8.6-10.3); Carbon Dioxide 31 mEq/L (23-29); Chloride 93 mEq/L (98-107); Chol/HDL Ratio 4.9 (0-4.9); Cholesterol 143 mg/dL (< 200); Eosinophils # 0.1 K/mcL (0.0-0.6); Globulin 3.2 g/dL (2.4-3.5); Glucose 144 mg/dL (70-105); HDL Cholesterol 29 mg/dL (40-59); LDL Cholesterol,Calculated 96 mg/dL (< 100); Lymphocytes # 1.8 K/mcL (0.6-4.6); Magnesium 1.9 mg/dL (1.6-2.6); Monocytes # 1.2 K/mcL (0.0-1.3); Neutrophils # 6.2 K/mcL (1.6-8.9); Osmolality,Calculated 281 (280-300); Phosphorous 3.4 mg/dL (2.7-4.5); Potassium 3.2 mEq/L (3.5-5.1); Sodium 134 mEq/L (136-145); Total Protein 7.6 g/dL (6.4-8.9); Triglycerides 91 mg/dL (< 150)
[2022-05-25 11:19] LABS: INR 1.4; Prothrombin Time 15.7 Seconds (9.4-12.1)
[2022-05-25 11:22] LABS: Activated Partial Thrombo Time 35.1 Seconds (26.0-36.0)
[2022-05-25 17:50] LABS: Amphetamine Screen,Urine Negative ng/mL (Cutoff=1000); Barbiturate Screen,Urine Negative ng/mL (Cutoff=200); Benzodiazepines Screen,Urine Negative ng/mL (Cutoff=200); Cannabinoid Screen,Urine Positive ng/mL (Cutoff = 50); Cocaine Screen,Urine Negative ng/mL (Cutoff= 300); Opiate Screen,Urine Negative ng/mL (Cutoff=300); Phencyclidine Screen,Urine Negative ng/mL (Cutoff=25)
[2022-05-25] MEDS ORDERED: Nicotine 21 MG PATCH.TD24 TD ONE (22:00)
[2022-05-26] MEDS: Acetaminophen 325 MG TABLET PO PRN ×3 (02:12→20:51)
[2022-05-26] MEDS: Ipratropium/Albuterol Neb 3 ML IH SCH ×4 (04:10→22:23)
[2022-05-26] MEDS ORDERED: *HR* Enoxaparin 40 MG/0.4 ML SYRINGE SQ SCH (06:00)
[2022-05-26] MEDS: Metoprolol XL (24 HR) Succ 25 MG TAB.ER.24H PO SCH (09:23)
[2022-05-26] MEDS: Spironolactone 12.5 MG TABLET PO SCH (09:23)
[2022-05-26] MEDS: Aspirin Enteric Coated 81 MG Tablet PO SCH (09:23)
[2022-05-26] MEDS: predniSONE 20 MG TABLET PO SCH (09:23)
[2022-05-26] MEDS: Nicotine 21 MG PATCH.TD24 TD SCH ×2 (09:23→18:00)
[2022-05-26] MEDS: Furosemide 20 MG/2 ML VIAL IVP SCH ×2 (09:43→20:52)
[2022-05-26] MEDS: Budesonide/Formoterol 160/4.5 1 PUFF INH IH SCH ×2 (09:56→22:23)
[2022-05-26 10:26] LABS: BUN/Creatinine Ratio 28 (6-26); Blood Urea Nitrogen 16 mg/dL (6-20); Calcium 9.1 mg/dL (8.6-10.3); Carbon Dioxide 31 mEq/L (23-29); Chloride 92 mEq/L (98-107); Glucose 127 mg/dL (70-105); Osmolality,Calculated 277 (280-300); Sodium 132 mEq/L (136-145)
[2022-05-26] MEDS ORDERED: Iopamidol - 370 500 ML MLS IVP ONE (14:29)
[2022-05-26 15:58] LABS: Estimated Average Glucose 114 mg/dl; Hemoglobin A1C 5.6 %
[2022-05-27 03:56] LABS: BUN/Creatinine Ratio 30 (6-26); Blood Urea Nitrogen 19 mg/dL (6-20); Calcium 9.6 mg/dL (8.6-10.3); Carbon Dioxide 29 mEq/L (23-29); Chloride 95 mEq/L (98-107); Glucose 160 mg/dL (70-105); Magnesium 2.4 mg/dL (1.6-2.6); Osmolality,Calculated 282 (280-300); Phosphorous 3.3 mg/dL (2.7-4.5); Potassium 3.5 mEq/L (3.5-5.1); Sodium 133 mEq/L (136-145)
[2022-05-27] MEDS: Ipratropium/Albuterol Neb 3 ML IH SCH (04:04)
[2022-05-27 07:55] VITALS: BP 102/71; PULSE 89; TEMP 97.8; O2SAT 97
[2022-05-27] MEDS ORDERED: levoFLOXacin 750 MG TABLET PO SCH (09:00)
== END 2022-05-27 08:30 | disposition left against medical advice (07) | DRG 194 ==
LOC: EMEROOARM 01:22 → 2ANU 01:22 → SUATTDRO 05:14 → 2ANU 05:52
PROVIDERS: ADMIT Internal Medicine; ATTEND Internal Medicine